=== PATIENT | female | born 1970 | race Caucasian/White ===

== ENCOUNTER 2021-05-25 08:02 | Outpatient (REF) | payer OTHER, SELFPAY ==
[2021-05-25 08:19] LABS: MANUAL DIFF FLAG NO
[2021-05-25 09:09] LABS: Basophils Percent Auto 0.1 % (0-2); Eosinophils Absolute Auto 0.4 X10*3/uL (0.0-0.4); Eosinophils Percent Auto 6.2 % (0-4); Hematocrit 40.3 % (37.0-47.0); Hemoglobin 12.7 g/dl (12.0-16.0); Imm Gran Abs Auto 0.04 X10*3/uL (0.00-0.03); Imm Gran Pct Auto 0.6 % (0.0-0.4); Lymphocytes Absolute Auto 3.1 X10*3/uL (1.2-4.9); Lymphocytes Percent Auto 46.6 % (20-40); Mean Corpuscular HGB Conc 31.5 g/dl (31.0-35.0); Mean Corpuscular Hemoglobin 27.2 pg (27.0-33.0); Mean Corpuscular Volume 86.3 fL (80.0-98.0); Monocytes Absolute Auto 0.7 X10*3/uL (0.1-1.2); Monocytes Percent Auto 10.1 % (2-11); Neutrophils Absolute Auto 2.5 x10*3/uL (2.0-8.3); Neutrophils Percent Auto 36.4 % (45-73); Platelet Count 410 X10*3/uL (160-400); Red Blood Count 4.67 X10*6/uL (4.20-5.50); Red Cell Distribution Width 13.1 % (11.0-16.0); White Blood Count 6.7 X10*3/uL (4.8-10.8)
[2021-05-25 09:46] LABS: Alanine Aminotransferase 19 U/L (0-31); Albumin Level 4.3 g/dL (3.5-5.0); Alkaline Phosphatase 88 U/L (39-117); Anion Gap 11 (12-20); Aspartate Amino Transferase 16 U/L (5-31); Bilirubin Total 0.4 mg/dL (0.0-1.0); Blood Urea Nitrogen 12 mg/dL (9-16); Calcium 9.6 mg/dL (8.4-10.2); Carbon Dioxide 29 mmol/L (22-29); Chloride 103 mmol/L (96-108); Cholesterol 235 mg/dL; Estimated Glomerular Filt Rate > 60; Glucose Fasting 97 mg/dL (60-99); HDL Cholesterol 61 mg/dL; LDL Cholesterol Calculated 152 mg/dl; Potassium 4.4 mmol/L (3.3-5.1); Sodium 139 mmol/L (135-145); Total Protein 7.4 g/dL (6.5-8.0); Triglycerides 111 mg/dL
[2021-05-25 10:08] LABS: Thyroid Stimulating Hormone 1.78 uIU/mL (0.32-4.0)
== END 2021-05-25 08:03 | disposition home or self-care (01) ==
LOC: HO.LAB 08:02
PROVIDERS: PCP Internal Medicine; Visit Provider Internal Medicine
DX: Z00.00 Encounter for general adult medical examination without abnormal findings (principal); E66.3 Overweight
CPT/HCPCS: 36415; 80053; 80061; 84443; 85025

== ENCOUNTER 2021-06-15 09:02 | Outpatient (REF) | payer OTHER, SELFPAY ==
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
== END 2021-06-15 09:03 | disposition home or self-care (01) ==
LOC: HO.MAMMO 09:02
PROVIDERS: PCP Internal Medicine; Visit Provider Internal Medicine
DX: Z12.31 Encounter for screening mammogram for malignant neoplasm of breast (principal)
CPT/HCPCS: 77063; 77067

== ENCOUNTER → 2021-08-24 09:52 | Outpatient (BNVA) | payer OTHER, SELFPAY | PROVIDERS: PCP Internal Medicine; Referring Provider Internal Medicine; Visit Provider Physician Assistant | DX: Z12.11 Encounter for screening for malignant neoplasm of colon (principal) ==

== ENCOUNTER 2021-11-08 09:13 | Outpatient (REF) | payer OTHER, SELFPAY ==
--- NOTE | ~2021-11-08 | XR_ITS ---
EXAMINATION: XR HIP, RIGHT XR HIP, LEFT CLINICAL INFORMATION: M16.0 - Bilateral primary osteoarthritis of hip COMPARISON: Radiographs right hip 06/26/2014 and left hip 08/05/2018. TECHNIQUE: Each hip is imaged in AP and frog-lateral projections. There are total of 4 views, 2 on each side. FINDINGS: Right: There is prominent osteoarthritic changes right hip with joint narrowing superolateral aspect. There are bulky acetabular osteophytes, greatest superior lateral acetabulum and also osteophytes at base femoral head. The acetabular osteophytes place patient at risk for pincer-type femoral acetabular impingement. The frog-lateral projections shows cleft at the acetabular spur similar to prior radiographs. There is no acute fracture or dislocation or destructive process. Spurring at the greater trochanter again seen. There is whiskering lateral iliac crest and ischial tuberosity. There may be underlying diffuse idiopathic skeletal hyperostosis. Left: There is prominent osteoarthritic changes left hip with joint narrowing superolateral aspect. There are bulky acetabular osteophytes, greatest superior lateral acetabulum and also osteophytes at base femoral head. The acetabular osteophytes with place patient at risk for pincer-type femoral acetabular impingement. There is no acute fracture or dislocation or destructive process. Spurring at the greater trochanter again seen. There is whiskering lateral iliac crest and ischial tuberosity. There may be underlying diffuse idiopathic skeletal hyperostosis. XR/XR hip LT min 2V IMPRESSION: -Bilateral osteoarthritis with bulky acetabular osteophytes and lesser osteophytes base femoral heads. The acetabular osteophytes can be associated with pincer-type femoral acetabular impingement. -Bilateral spurring lateral iliac crests, ischial tuberosities, and greater trochanters. There may be underlying diffuse idiopathic skeletal hyperostosis.
--- NOTE | ~2021-11-08 | XR_ITS ---
EXAMINATION: XR HIP, RIGHT XR HIP, LEFT CLINICAL INFORMATION: M16.0 - Bilateral primary osteoarthritis of hip COMPARISON: Radiographs right hip 06/26/2014 and left hip 08/05/2018. TECHNIQUE: Each hip is imaged in AP and frog-lateral projections. There are total of 4 views, 2 on each side. FINDINGS: Right: There is prominent osteoarthritic changes right hip with joint narrowing superolateral aspect. There are bulky acetabular osteophytes, greatest superior lateral acetabulum and also osteophytes at base femoral head. The acetabular osteophytes place patient at risk for pincer-type femoral acetabular impingement. The frog-lateral projections shows cleft at the acetabular spur similar to prior radiographs. There is no acute fracture or dislocation or destructive process. Spurring at the greater trochanter again seen. There is whiskering lateral iliac crest and ischial tuberosity. There may be underlying diffuse idiopathic skeletal hyperostosis. Left: There is prominent osteoarthritic changes left hip with joint narrowing superolateral aspect. There are bulky acetabular osteophytes, greatest superior lateral acetabulum and also osteophytes at base femoral head. The acetabular osteophytes with place patient at risk for pincer-type femoral acetabular impingement. There is no acute fracture or dislocation or destructive process. Spurring at the greater trochanter again seen. There is whiskering lateral iliac crest and ischial tuberosity. There may be underlying diffuse idiopathic skeletal hyperostosis. XR/XR hip RT min 2V IMPRESSION: -Bilateral osteoarthritis with bulky acetabular osteophytes and lesser osteophytes base femoral heads. The acetabular osteophytes can be associated with pincer-type femoral acetabular impingement. -Bilateral spurring lateral iliac crests, ischial tuberosities, and greater trochanters. There may be underlying diffuse idiopathic skeletal hyperostosis.
[2021-11-08 09:29] LABS: MANUAL DIFF FLAG NO
[2021-11-08 09:59] LABS: Basophils Percent Auto 0.3 % (0-2); Eosinophils Absolute Auto 0.3 X10*3/uL (0.0-0.4); Eosinophils Percent Auto 5.1 % (0-4); Hematocrit 37.1 % (37.0-47.0); Hemoglobin 11.9 g/dl (12.0-16.0); Imm Gran Abs Auto 0.02 X10*3/uL (0.00-0.03); Imm Gran Pct Auto 0.3 % (0.0-0.4); Lymphocytes Absolute Auto 2.6 X10*3/uL (1.2-4.9); Lymphocytes Percent Auto 43.9 % (20-40); Mean Corpuscular HGB Conc 32.1 g/dl (31.0-35.0); Mean Corpuscular Hemoglobin 27.4 pg (27.0-33.0); Mean Corpuscular Volume 85.5 fL (80.0-98.0); Mean Platelet Volume 9.1 fL (9.4-12.3); Monocytes Absolute Auto 0.7 X10*3/uL (0.1-1.2); Monocytes Percent Auto 12.3 % (2-11); Neutrophils Absolute Auto 2.2 x10*3/uL (2.0-8.3); Neutrophils Percent Auto 38.1 % (45-73); Platelet Count 389 X10*3/uL (160-400); Red Blood Count 4.34 X10*6/uL (4.20-5.50); White Blood Count 5.9 X10*3/uL (4.8-10.8)
[2021-11-08 10:36] LABS: C Reactive Protein 0.28 mg/dL (< or = 0.50)
[2021-11-08 11:02] LABS: Thyroid Stimulating Hormone 2.09 uIU/mL (0.32-4.0)
[2021-11-08 11:20] LABS: Erythrocyte Sedimentation Rate 12 MM/HR (0-20)
== END 2021-11-08 09:14 | disposition home or self-care (01) ==
LOC: HO.XRAY 09:13
PROVIDERS: PCP Internal Medicine; Visit Provider Internal Medicine Rheumatology
DX: M16.0 Bilateral primary osteoarthritis of hip (principal)
CPT/HCPCS: 36415; 73502; 84443; 85025; 85652; 86140

== ENCOUNTER 2021-11-10 09:54 | Outpatient (REF) | payer OTHER, SELFPAY ==
--- NOTE | ~2021-11-10 | US_ITS ---
EXAMINATION: US THYROID CLINICAL INFORMATION: Nontoxic goiter, unspecified. COMPARISON: None TECHNIQUE: Linear transducer grayscale and color Doppler examination with attention to the region of the thyroid. FINDINGS: SIZE: Measurements of the thyroid lobes and nodules are given in sagittal, anteroposterior and transverse dimensions respectively. Right Thyroid Lobe: 4.4 x 1.4 x 1.9 cm, volume 6.1 mL. Parenchyma: The gland echotexture is homogeneous. Thyroid vascularity is normal. Left Thyroid Lobe: 3.6 x 1.1 x 1.4 cm, volume 2.9 mL. Parenchyma: The gland echotexture is homogeneous. Thyroid vascularity is normal. Isthmus: 0.2 cm in maximum AP dimension. Estimated total number of nodules greater than or equal to 1 cm: 0. School Bus Monitor nodules are described as follows: 1. Location: Right lateral/lower pole. Size: 0.3 x 0.2 x 0.3 cm, volume 0.01 mL. Nodule characteristics: Composition: Solid (2). Echogenicity: Isoechoic (1). Shape: Not taller than wide (0). Margins: Smooth (0). Echogenic Foci: None (0). ACR TI-RADS total points: 3 ACR TI-RADS category: 3 2. Location: Right lower pole. Size: 0.2 x 0.1 x 0.2 cm, volume 0.02 mL. Nodule characteristics: Composition: Solid/almost completely solid (2). Echogenicity: Hypoechoic (2). Shape: Not taller than wide (0). Margins: Smooth (0). Echogenic Foci: None (0). ACR TI-RADS total points: 4 ACR TI-RADS category: 4 NODES: No lymphadenopathy is seen in the tissue surrounding the thyroid gland. US/US thyroid IMPRESSION: 1. Nodule in the lower portion of the right thyroid lobe (nodule #1) measures up to 0.3 cm with a TI-RADS Category 3. Nodule does not require follow-up. 2. Nodule in the lower portion of the right thyroid lobe (nodule #2) measures up to 0.2 cm with a TI-RADS Category 4. Nodule does not require follow-up. 3. Bilateral thyroid lobes demonstrate a homogeneous echotexture with normal vascularity. 4. No lymphadenopathy noted. ACR TI-RADS RECOMMENDATION REFERENCE: Ultrasound-guided fine-needle aspiration, followup ultrasound, no further follow up. * TR3 (3 points): FNA if more than or equal to 2.5 cm in maximum dimension, followup ultrasound in 1, 3 and 5 years if 1.5 to 2.4 cm in maximum dimension. * TR4 (4-6 points): FNA if more than or equal to 1.5 cm in maximum dimension, followup ultrasound in 1, 2, 3 and 5 years if 1 to 1.4 cm in maximum dimension. * TR3 or TR4 nodules that are below the size threshold for follow up receive no follow up.
== END 2021-11-10 09:55 | disposition home or self-care (01) ==
LOC: HO.US 09:54
PROVIDERS: Visit Provider Internal Medicine
DX: E04.9 Nontoxic goiter, unspecified (principal)
CPT/HCPCS: 76536

== ENCOUNTER 2021-12-02 15:52 | Outpatient (REF) | payer OTHER, SELFPAY ==
--- NOTE | ~2021-12-02 | MR_ITS ---
EXAMINATION: MR CERVICAL SPINE WITHOUT AND WITH CONTRAST CLINICAL INFORMATION: Syringomyelia and syringobulbia. COMPARISON: No relevant prior imaging. TECHNIQUE: Multiplanar MR imaging of the cervical spine was performed without and with contrast. A total of 7.5 mL Gadavist was utilized for this examination. FINDINGS: Alignment is normal. Vertebral body heights are preserved. No acute bone marrow signal changes. There is disc desiccation at multiple levels without substantial loss of intervertebral disc height. There is a syrinx involving the lower cervical spinal cord that extends from C6 to T1 measuring up to 3 mm in diameter at the level of the lower T7 endplate best depicted on axial image 27 of 40 series 6. The cervicomedullary junction is normal. Limited visualization the posterior fossa reveals no abnormal finding. The occipital condyles and lateral C1 masses are intact. There is degenerative arthrosis of the atlantodental joint. C1-C2 articular facets are unremarkable. At C2-C3 the annular contour is normal. No canal or neuroforaminal compromise. At C3-C4 there is a contour abnormality along the left central aspect of the disc that may either represent a disc extrusion, exuberant disc osteophyte complex, or an osteochondroma causing abutment along the left ventral surface of the cervical cord. Otherwise no canal stenosis. Asymmetric uncovertebral joint spurring and facet degenerative change causes moderate left neuroforaminal encroachment. At C4-C5 there is a slightly bulging disc. No canal stenosis. Uncovertebral joint spurring causes mild left neuroforaminal encroachment. At C5-C6 there is a slightly bulging disc. No canal stenosis. Asymmetric uncovertebral joint spurring causes mild right neuroforaminal encroachment. At C6-C7 there is a shallow right central protrusion superimposed on a bulging disc. No canal stenosis. Uncovertebral spurring and facet degenerative change causes mild bilateral neuroforaminal encroachment. At C7-T1 the annular contour is normal. No canal stenosis. No neuroforaminal encroachment. Visualized soft tissues of the neck are normal. Vascular flow voids are grossly maintained. MR/MR cervical spine wo/w con IMPRESSION: There is a small fusiform syrinx involving the cervical spinal cord that extends from the level of C6-T1 measuring up to 3 mm in maximal diameter at the level of the lower C5 endplate. There is a focal abnormality along the left central aspect of the disc contour at the level of C3-C4 causing indentation of the thecal sac and abutment along the left ventral surface of the cervical cord. No canal stenosis and no overt compression at this level. The etiology of this finding is uncertain. It may represent a disc herniation, disc osteophyte complex, or an osteochondroma. Comparison with prior imaging is recommended if available. A CT scan can also be helpful to assess the extent of calcification of this lesion.
== END 2021-12-02 15:53 | disposition home or self-care (01) ==
LOC: HO.MRI 15:52
PROVIDERS: Visit Provider Internal Medicine Rheumatology
DX: G95.0 Syringomyelia and syringobulbia (principal)
CPT/HCPCS: 72156; A9585

== ENCOUNTER 2021-12-21 06:30 | Day surgery (SDC) | payer OTHER, SELFPAY ==
[2021-12-15 14:34] VITALS: BMI 29.9
[2021-12-21 07:40] VITALS: BMI 28.0
[2021-12-21 07:45] VITALS: BP 177/92; PULSE 70; RESP 16; TEMP 36.9; O2SAT 100
--- NOTE | 2021-12-21 08:03 | P.CONAN_ITS ---
HPI - Anesthesia Eval Consult details Narrative: Screening Colonoscopy [facility] Active Problems Active Problems: All Active Problems (Updated 11/30/21 @ 10:00 by Mikael Jiménez MD) Osteoarthritis cervical spine (Acute) Syrinx of spinal cord (Acute) Goiter (Acute) Polyarthralgia (Acute) Pure hypercholesterolemia (Acute) Fibromyalgia (Acute) Osteoarthritis, hip, bilateral (Acute) Overweight (Acute) Past Medical History Medical History Fibromyalgia Goiter Hip pain, bilateral Neck pain Osteoarthritis, hip, bilateral Overweight Physical exam Polyarthralgia Pure hypercholesterolemia Family History Family history of problems with anesthesia: No Surgical History Surgical History H/O skin graft History of esophagogastroduodenoscopy (EGD) Osteochondroma of femur S/P TAMERA (total abdominal hysterectomy) History of Problems with Anesthesia: No Social History Social History Housing: Apartment Alcohol intake: never Patient Tobacco Use Status: Never used Tobacco e-Cigarette/Vaping Use: Never Used Second Hand Smoke Exposure: No Use of substances other than those prescribed or required for medical reasons: No Are you DNR?: No Advance Directives: No Advance Directives Information Provided: Yes service: No Current occupational status: unemployed Cognitive needs: No Hearing needs: No Vision needs: No Meds Allergies Allergy/AdvReac Type Severity Reaction Status Date / Time oxycodone [Percocet] Allergy Intermediate rash Verified 12/15/21 14:30 sulindac Allergy Intermediate Abdominal Verified 12/15/21 14:30 Pain tramadol Allergy Intermediate Abdominal Verified 12/15/21 14:30 Pain diazepam [From VALIUM] Allergy Mild HIVES Verified 11/30/21 09:17 fluoxetine [From PROZAC] Allergy Mild HIVES Verified 11/30/21 09:17 Active Medications: Current Medications Lactated Ringer's (Lr) 1,000 mls @ 50 mls/hr IVCONT .Q20H [facility] Home Medications Medication Instructions Recorded Confirmed Last Taken Type acetaminophen 500 mg tablet 1,000 mg PO Q6H PRN 11/30/21 11/30/21 Unknown History (Tylenol Extra Strength) Exam Exam Date and Time: December 21, 2021 0803 Height,Weight and Vital Signs: Height 5 ft 2 in Weight 69.4 kg Last Vital Signs Temp 98.5 F 12/21/21 07:45 Pulse 70 12/21/21 07:45 Resp 16 12/21/21 07:45 BP 177/92 H 12/21/21 07:45 Pulse Ox 100 12/21/21 07:45 O2 Del Method 12/21/21 07:45 Airway Mallampati Class: II TM Dist: >3cm Neck ROM: Full Loose/Missing/Broken Teeth: Yes (alot of crowns globally, poor dentititon) Heart: [id number] Lungs: cta b/l Assessment and Plan Assessment Anesthesia Assessment: Anesthesia Plan Discussed and Chart Reviewed Final Anesthetic Review Family History of Problems with Anesthesia: No History of Problems with Anesthesia: No NPO: Yes ASA Class: II Final Preanesthetic Review: No Changes in Pt Med Stat, Meds/Allgs Chart Reviewed, Consent Obtained/Reviewed and Anes Risks/Benef Reviewed Patient Risk: Intermediate Procedure Risk: Low Assessment/Block/Sedation in SS: Assess/Block/Sedation-SS Anesthetic Plan Anesthetic Plan: MAC: and Agree w/ Assess. and Plan Disposition: Standard PACU
[2021-12-21] MEDS: Lactated Ringers 1,000 ML 50 ML IVCONT (08:12)
--- NOTE | 2021-12-21 08:46 | MHC.SHP ---
Pre-Procedural Eval Section A Date of Service: 12/21/21 Section B Chief Complaint: screening Relevant Family History (Specify if Yes): No Relevant Social History: None Present Medications: see Short Stay Collaborative assessment Medical History: Significant History (Fibromyalgia Goiter Hip pain, bilateral Neck pain Osteoarthritis, hip, bilateral Overweight Physical exam Polyarthralgia Pure hypercholesterolemia) History of Previous Operations: Relevant previous surgery/procedure and date(s) (H/O skin graft History of esophagogastroduodenoscopy (EGD) Osteochondroma of femur S/P TAMERA (total abdominal hysterectomy)) Allergies: Allergies Allergy/AdvReac Type Severity Reaction Status Date / Time oxycodone [Percocet] Allergy Intermediate rash Verified 12/15/21 14:30 sulindac Allergy Intermediate Abdominal Verified 12/15/21 14:30 Pain tramadol Allergy Intermediate Abdominal Verified 12/15/21 14:30 Pain diazepam [From VALIUM] Allergy Mild HIVES Verified 11/30/21 09:17 fluoxetine [From PROZAC] Allergy Mild HIVES Verified 11/30/21 09:17 Review of Systems Sugical H&P ROS: Negative: Constitution, Cardiovascular, Respiratory, Neurological, Psychiatric, Hem-Onc, Allergic/Immunologic, Gastrointestinal, Genitourinary, Musculoskeletal, Integumentary, Endocrine and Eyes/Ears/Nose/Throat Exam Surgical H&P Exam: Normal: HEENT, Normal: Heart, Normal: Lungs, Normal: Extremities, Normal: Abdomen, Normal: Skin and Normal: Neurological Plan Diagnosis/Plan: Unchanged I have reviewed the history and physical and performed a pertinent physical examination on my patient. No changes have occurred unless specified.
--- NOTE | 2021-12-21 08:48 | W.PM.OPN ---
Operative Note Operative Note Date of Service: 12/21/21 Narrative: Operative Information Procedure Description: Colonoscopy Indication: screening Anesthesia: MAC COLONOSCOPY Instrument: Olympus variable stiffness pediatric scope 190L Colonoscopy Monitoring: Vital signs and clinical assessment, continuous EKG monitoring, Pulse oximetry, Carbon Dioxide monitoring and blood pressure monitoring were done throughout the procedure. Colon withdrawal time was 7 minutes. Procedure: The patient was placed in the left lateral decubitis position and pre-procedure medications were administered. After a digital rectal examination of the ano-rectum, the video colonoscope was inserted into the rectum and advanced through the colon to the cecum/TI. The colonoscope was slowly withdrawn in a retrograde panoramic fashion and the colon mucosa was carefully examined including a retroflexed view of the rectum. Findings and interventions are described below. Procedure Difficulty: easy Findings: Terminal Ileum-normal Cecum: few diverticula seen right sided retroflexion--normal Ascending Colon: scattered diverticula Transverse Colon -normal Descending Colon:normal Sigmoid Colon: moderate diverticulosis with luminal narrowing and mucosal hypertrophy Rectum: Retroflexion with small internal hemorrhoids, grade I Anorectum - normal Colon preparation: [place] Bowel Preparation Scale Right colon; 2 Transverse colon: 3 Left colon; 3 (0 = Unprepared colon segment with mucosa not seen due to solid stool that cannot be cleared. 1 = Portion of mucosa of the colon segment seen, but other areas of the colon segment not well seen due to staining, residual stool and/or opaque liquid. 2 = Minor amount of residual staining, small fragments of stool and/or opaque liquid, but mucosa of colon segment seen well. 3 = Entire mucosa of colon segment seen well with no residual staining, small fragments of stool or opaque liquid) Impression and Post Procedure Diagnosis: internal hemorrhoids diverticular disease Plan: High fiber diet leaflet Avoid straining at stool, epsom salts and sitz bath, anusol supps or cream Repeat Colonoscopy in 10 years or earlier if clinically indicated Above findings were reviewed with the patient and relevant handouts were provided if indicated.
[2021-12-21 09:07] VITALS: BP 138/86; PULSE 64; RESP 16; TEMP 36.1; O2SAT 100
[2021-12-21 09:22] VITALS: BP 145/82; PULSE 64; RESP 16; TEMP 36.2; O2SAT 99
[2021-12-21 09:33] VITALS: BP 142/87; PULSE 58; RESP 16; TEMP 36.2; O2SAT 99
== END 2021-12-21 10:05 | disposition home or self-care (01) ==
PROVIDERS: PCP Internal Medicine; Visit Provider Internal Medicine Gastroenterology
PROC: 0DJD8ZZ Inspection of Lower Intestinal Tract, Via Natural or Artificial Opening Endoscopic (ICD-10-PCS; CPT 45378; principal; 2021-12-21 08:30)
DX: Z12.11 Encounter for screening for malignant neoplasm of colon (principal); K57.30 Diverticulosis of large intestine without perforation or abscess without bleeding; K64.0 First degree hemorrhoids; M79.7 Fibromyalgia; E78.00 Pure hypercholesterolemia, unspecified; E66.3 Overweight; Z68.29 Body mass index [BMI] 29.0-29.9, adult; J30.2 Other seasonal allergic rhinitis; Z88.8 Allergy status to other drugs, medicaments and biological substances
CPT/HCPCS: 45378

== ENCOUNTER 2022-05-15 08:20 | Outpatient (REF) | payer OTHER, SELFPAY ==
[2022-05-15 09:21] LABS: Influenza A PCR NEGATIVE (Negative); Influenza B PCR NEGATIVE (Negative); Resp Syncy Virus RNA Qual PCR NEGATIVE (Negative); SARS COV2 PCR INHOUSE NEGATIVE (Negative)
[2022-05-15 10:04] LABS: Alanine Aminotransferase 21 U/L (0-31); Albumin Level 4.2 g/dL (3.5-5.0); Alkaline Phosphatase 95 U/L (39-117); Anion Gap 15 (12-20); Aspartate Amino Transferase 16 U/L (5-31); Bilirubin Total 0.4 mg/dL (0.0-1.0); Blood Urea Nitrogen 10 mg/dL (9-16); Calcium 9.4 mg/dL (8.4-10.2); Carbon Dioxide 27 mmol/L (22-29); Chloride 103 mmol/L (96-108); Cholesterol 185 mg/dL; Estimated Glomerular Filt Rate > 60; Glucose Fasting 100 mg/dL (60-99); HDL Cholesterol 49 mg/dL; LDL Cholesterol Calculated 103 mg/dl; Potassium 4.2 mmol/L (3.3-5.1); Sodium 141 mmol/L (135-145); Triglycerides 168 mg/dL
[2022-05-15 10:12] LABS: Vitamin D 25-OH Total 22.3 ng/mL (>30)
== END 2022-05-15 08:21 | disposition home or self-care (01) ==
LOC: HO.LAB 08:20
PROVIDERS: PCP Internal Medicine; Visit Provider Internal Medicine
DX: Z00.00 Encounter for general adult medical examination without abnormal findings (principal); Z20.822 Contact with and (suspected) exposure to COVID-19; R09.89 Other specified symptoms and signs involving the circulatory and respiratory systems; E55.9 Vitamin D deficiency, unspecified; E78.5 Hyperlipidemia, unspecified
CPT/HCPCS: 0241U; 80053; 80061; 82306

== ENCOUNTER 2022-08-02 07:57 | Outpatient (REF) | payer OTHER, SELFPAY ==
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
== END 2022-08-02 07:58 | disposition home or self-care (01) ==
LOC: HO.MAMMO 07:57
PROVIDERS: Visit Provider Internal Medicine
DX: Z12.31 Encounter for screening mammogram for malignant neoplasm of breast (principal)
CPT/HCPCS: 77063; 77067

== ENCOUNTER 2022-09-21 09:23 | Outpatient (REF) | payer MEDICAID, SELFPAY ==
--- NOTE | ~2022-09-21 | US_ITS ---
EXAMINATION: US VENOUS ULTRASOUND WITH DOPPLER LOWER EXTREMITY, LEFT CLINICAL INFORMATION: Left lower extremity pain COMPARISON: None available. TECHNIQUE: Ultrasound of the deep veins is performed from the hip to the calf with compression sonography and color and pulse Doppler assessment. Spectral analysis with color-flow imaging is performed. FINDINGS: There is normal venous compression and respiratory variation and augmented flow. The visualized common femoral vein, superficial femoral vein, profunda femoral vein, popliteal vein, and the trifurcation region shows no evidence of deep venous thrombosis. There is no significant popliteal fossa cyst. If the patient's symptoms persist, followup ultrasound in 5 days 7 days might be of value to exclude proximal propagation from a non-visualized calf vein. US/US venous duplex LE LT IMPRESSION: No DVT demonstrated in the left lower extremity.
== END 2022-09-21 09:24 | disposition home or self-care (01) ==
LOC: HO.US 09:23
PROVIDERS: PCP Internal Medicine; Visit Provider Internal Medicine
DX: M79.605 Pain in left leg (principal)
CPT/HCPCS: 93971

== ENCOUNTER 2022-09-22 11:15 | Outpatient (REF) | payer MEDICAID, SELFPAY ==
[2022-09-22 13:28] LABS: Magnesium 2.4 mg/dL (1.6-2.6)
== END 2022-09-22 11:16 | disposition home or self-care (01) ==
LOC: HO.LAB 11:15
PROVIDERS: PCP Internal Medicine; Visit Provider Internal Medicine
DX: R25.2 Cramp and spasm (principal)
CPT/HCPCS: 36415; 83735

== ENCOUNTER 2022-10-25 09:10 | Outpatient (AMB) | payer OTHER, SELFPAY ==
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
== END 2022-10-25 11:56 | disposition home or self-care (01) ==
PROVIDERS: PCP Internal Medicine; Referring Provider Internal Medicine; Visit Provider Physician Assistant
DX: G95.9 Disease of spinal cord, unspecified (principal)
CPT/HCPCS: 99204

== ENCOUNTER → 2022-10-25 09:10 | Outpatient (BNVA) | payer OTHER, SELFPAY | PROVIDERS: PCP Internal Medicine; Visit Provider Neurological Surgery | DX: G95.9 Disease of spinal cord, unspecified (principal) | CPT/HCPCS: 99202 ==

== ENCOUNTER 2022-10-31 10:25 | Outpatient (REF) | payer OTHER, SELFPAY ==
--- NOTE | ~2022-10-31 | US_ITS ---
EXAMINATION: US THYROID CLINICAL INFORMATION: Nontoxic single thyroid nodule. COMPARISON: Ultrasound thyroid 11/10/2021. TECHNIQUE: Linear transducer grayscale and color Doppler examination with attention to the region of the thyroid. FINDINGS: SIZE: Measurements of the thyroid lobes and nodules are given in sagittal, anteroposterior and transverse dimensions respectively. Right Thyroid Lobe: 4.0 x 1.4 x 1.7 cm, volume 5.0 mL. Previously 4.4 x 1.4 x 1.9 cm, volume 6.1 mL. Parenchyma: The gland echotexture is homogeneous. Thyroid vascularity is normal. Left Thyroid Lobe: 3.6 x 1.2 x 1.4 cm, volume 3.2 mL. Previously 3.6 x 1.1 x 1.4 cm, volume 2.9 mL. Parenchyma: The gland echotexture is homogeneous. Thyroid vascularity is normal. Isthmus: 0.2 cm in maximum AP dimension. Previously 0.2 cm. Estimated total number of nodules greater than or equal to 1 cm: 0. Rotating Equipment Engineer nodules are described as follows: 1. Location: Right mid/inferior. Size: 0.4 x 0.2 x 0.3 cm, volume 0.01 mL. Previously: 0.3 x 0.2 x 0.3 cm, volume 0.01 mL. Nodule characteristics: Composition: Solid (2). Echogenicity: Hypoechoic (2). Shape: Not taller than wide (0). Margins: Smooth (0). Echogenic Foci: None (0). ACR TI-RADS total points: 4 Previous: 3 ACR TI-RADS category: 4 Previous: 3 Significant change in size (>/= 20% in 2 dimensions and minimal increase of 2 mm or 50% or greater increase in volume): No Change in features: No Change in ACR TI-RADS risk category: Yes 2. A previously described 0.2 cm right lower pole. 4 nodule on ultrasound from 11/10/2021 is not seen in this examination. NODES: No lymphadenopathy is seen in the tissue surrounding the thyroid gland. US/US thyroid IMPRESSION: 1. Stable 0.4 cm nodule in the mid to lower pole of the right lobe classified as TR 4, not meeting size criteria for further evaluation. 2. No new nodules. ACR TI-RADS RECOMMENDATION REFERENCE: Ultrasound-guided fine-needle aspiration, follow up ultrasound, no further followup. * TR1 (0 point) and TR2 (2 points): No FNA or followup * TR3 (3 points): FNA if more than or equal to 2.5 cm in maximum dimension, follow up ultrasound in 1, 3 and 5 years if 1.5 to 2.4 cm in maximum dimension. * TR4 (4-6 points): FNA if more than or equal to 1.5 cm in maximum dimension, follow up ultrasound in 1, 2, 3 and 5 years if 1 to 1.4 cm in maximum dimension. * TR5 (more than or equal to 7 points): FNA if more than or equal to 1 cm in maximum dimension, follow up ultrasound every year for 5 years if 0.5 to 0.9 cm in maximum dimension. * TR3, TR4 or TR5 nodules that are below the size threshold for follow up receive no followup.
== END 2022-10-31 10:26 | disposition home or self-care (01) ==
LOC: HO.US 10:25
PROVIDERS: PCP Internal Medicine; Visit Provider Internal Medicine
DX: E04.1 Nontoxic single thyroid nodule (principal)
CPT/HCPCS: 76536

== ENCOUNTER 2022-11-14 07:26 | Outpatient (REF) | payer OTHER, SELFPAY ==
--- NOTE | ~2022-11-14 | CT_ITS ---
EXAMINATION: CT CERVICAL SPINE WITHOUT CONTRAST CLINICAL INFORMATION: Disease of the cervical spinal cord. Cervical myelopathy. COMPARISON: MR cervical spine 12/02/2021. TECHNIQUE: Grocery Clerk images were obtained. CT imaging of the cervical spine was performed without contrast. Data was reformatted into multiplanar images at the acquisition workstation. This CT examination was performed using dose optimization techniques as appropriate, including one or more of the following: Automated exposure control, iterative reconstruction, and adjustment of technique factors (mA and/or kVp) according to patient size (this includes techniques or standardized protocols for targeted exams where dose is matched to indication/reason for exam). Fleischner Society criteria for the followup of incidental pulmonary nodules was implemented if appropriate. DLP: 341 mGy-cm FINDINGS: Alignment is normal. Vertebral body heights are preserved. No acute cervical spine fracture. No abnormal prevertebral soft tissue swelling. There is loss of intervertebral disc height with associated sclerotic degenerative endplate changes and hypertrophic disc osteophyte spurring at multiple levels. There is relatively exuberant disc osteophyte spurring at the level of C3-C4 best visualized on sagittal image 25 of 47 series 8 with hypertrophic spurring that bulges into the left ventrolateral aspect of the cervical spinal canal resulting in moderate to severe left neuroforaminal encroachment and no more than mild canal stenosis at this level. Otherwise no canal compromise within the cervical spine. There is degenerative arthrosis of the atlantodental joint. The cervicomedullary junction is normal. Limited visualization of intracranial anatomy reveals no abnormal finding. Visualized soft tissues of the neck are normal. Grossly no pathologically enlarged cervical lymph nodes. CT/CT cervical spine wo IV con IMPRESSION: There is multilevel degenerative spondylosis of the cervical spine. There is relatively exuberant disc osteophyte spurring at C3-C4 that bulges into the left ventrolateral aspect of the cervical spinal canal resulting in moderate to severe left neuroforaminal encroachment and no more than mild canal stenosis at this level. Otherwise no canal compromise within the cervical spine.
== END 2022-11-14 07:27 | disposition home or self-care (01) ==
LOC: HO.CT 07:26
PROVIDERS: PCP Internal Medicine; Visit Provider Neurological Surgery
DX: G95.9 Disease of spinal cord, unspecified (principal)
CPT/HCPCS: 72125

== ENCOUNTER 2022-11-29 12:58 | Outpatient (AMB) | payer OTHER, SELFPAY ==
--- NOTE | 2022-11-29 13:16 | HO.SPINEOV ---
Intake Intake Visit Reasons: CT f/up Intake Note: Ms. New is here today for a f/u of a CT Scan she had done. Interactive Project Manager Required: No Allergies oxycodone [Percocet] Allergy (Intermediate, Verified 10/25/22 09:57) rash sulindac Allergy (Intermediate, Verified 10/25/22 09:57) Abdominal Pain tramadol Allergy (Intermediate, Verified 10/25/22 09:57) Abdominal Pain diazepam [From VALIUM] Allergy (Mild, Verified 10/25/22 09:57) HIVES fluoxetine [From PROZAC] Allergy (Mild, Verified 10/25/22 09:57) HIVES Assessment & Plan Assessment & Plan (1) Cervical myelopathy: Code(s): G95.9 - Disease of spinal cord, unspecified Plan The patient is a 52-year-old female that comes in as a follow-up after completing her cervical CT scan. She last saw Dr. Gonzales who recommended that she have a CT scan completed after noticing a disc bulge at C3-4 to rule out a potential osteophyte as inciting incident was reported to be old. Reduce the rather large osteophyte on the posterior edge of the vertebral body. Initially we discussed the possibility of a C4 corpectomy with cage placement to address the myelopathic symptoms that the patient is experiencing which originate from her left shoulder and radiate down her left arm to the hand. After further discussion with the patient, and repeat physical exam it was noted that the patient has symptoms in the left arm that are more consistent with carpal tunnel. She does not have any isolation of symptoms in a dermatomal distribution, but rather has grossly numbness/tingling/burning in her left arm predominantly found in her left hand, with involvement of all of her phalanges (H). (+) Tinel's, (+) Phalen's. Reflexes 2+ intact, no myelopathic reflexes. We discussed the possibility of carpal tunnel syndrome, which that the patient disclosed that she had an EMG completed at [facility] in [place]. After discussion the patient case with Dr. Gonzales it was decided that we should request the records of her EMG from findings findings for and see her back in the office to discuss the possibility of a carpal tunnel release procedure on the left side. If we are able to confirm that she has carpal tunnel, and she has continued symptoms after we complete procedure to release her median nerve, we may revisit the idea of a C4 corpectomy. The patient understands and is agreeable to this plan. Total amount of time spent in this visit was 45 minutes in discussion of symptoms, CT imaging results, medical records requests, and subsequent plan of care Andi Gonzales MD,PhD [facility] Coding Level of Care Code Est Pt Level 5 (27677) Diagnoses Cervical myelopathy G95.9
== END 2022-11-29 14:58 | disposition home or self-care (01) ==
PROVIDERS: PCP Internal Medicine; Visit Provider Physician Assistant
DX: G95.9 Disease of spinal cord, unspecified (principal)
CPT/HCPCS: 99215

== ENCOUNTER → 2022-11-29 12:58 | Outpatient (BNVA) | payer OTHER, SELFPAY | PROVIDERS: PCP Internal Medicine; Visit Provider Physician Assistant | DX: G95.9 Disease of spinal cord, unspecified (principal) | CPT/HCPCS: 99212 ==

== ENCOUNTER 2022-12-27 15:21 | Outpatient (AMB) | payer OTHER, SELFPAY ==
--- NOTE | 2022-12-27 15:25 | HO.SPINEOV ---
Intake Intake Visit Reasons: Follow EMG results Intake Note: Ms. New is here today for discuss the results of her EMG. Medical Information Officer Required: Yes Allergies oxycodone [Percocet] Allergy (Intermediate, Verified 10/25/22 09:57) rash sulindac Allergy (Intermediate, Verified 10/25/22 09:57) Abdominal Pain tramadol Allergy (Intermediate, Verified 10/25/22 09:57) Abdominal Pain diazepam [From VALIUM] Allergy (Mild, Verified 10/25/22 09:57) HIVES fluoxetine [From PROZAC] Allergy (Mild, Verified 10/25/22 09:57) HIVES Assessment & Plan Assessment & Plan (1) Carpal tunnel syndrome of right wrist: Code(s): G56.01 - Carpal tunnel syndrome, right upper limb Plan Reema is a 52-year-old female who comes in for her 2nd follow-up visit for continued discussion of surgery. We were able to obtain her EMG results and discuss the need for bilateral carpal tunnel release surgery. She specifically wanted to be seen on a day that Dr. Gonzales would be years that she could meet the surgeon that would be performing her surgery. We spent roughly an hour answering all the questions that she had pertaining to her cervical spine CT and MRI imaging, alongside questions she had from her EMG. She was scheduled to have a right carpal tunnel release surgery on 02/06/2023. She will need to be scheduled for left carpal tunnel release surgery shortly thereafter. She understands and is agreeable to this plan. Reema was given risk and benefits of surgery including but not limited to infection, hematoma , nerve injury, weakness, and persistent pain. As well as the option to continue with conservative treatment and patient wishes to proceed with surgery. She is aware they should not take Motrin / aspirin 7 days prior to surgery. All questions were answered to the best of our ability. If there is anything about this patients medical history that we have overlooked or concerns you have about us proceeding with surgery we would appreciate any input you can offer. Total amount of time spent in this visit was 60 minutes in discussion of symptoms, answering surgical questions, MRI / CT / EMG imaging results review with patient, ansd subsequent plan of care Andi Gonzales MD,PhD [facility] Coding Level of Care Code Est Pt Level 5 (11818) Diagnoses Carpal tunnel syndrome of right wrist G56.01
== END 2023-01-02 09:41 | disposition home or self-care (01) ==
PROVIDERS: PCP Internal Medicine; Visit Provider Physician Assistant
DX: G56.01 Carpal tunnel syndrome, right upper limb (principal)
CPT/HCPCS: 99215

== ENCOUNTER → 2022-12-27 15:21 | Outpatient (BNVA) | payer OTHER, SELFPAY | PROVIDERS: PCP Internal Medicine; Visit Provider Physician Assistant | DX: G56.01 Carpal tunnel syndrome, right upper limb (principal) | CPT/HCPCS: 99212 ==

== ENCOUNTER 2023-02-06 08:44 | Day surgery (SDC) | payer OTHER, SELFPAY ==
--- NOTE | 2023-02-05 09:13 | P.CONAN_ITS ---
Documented by User: Raiza Murdock NP 02/05/23 09:13 HPI - Anesthesia Eval Consult details Narrative: 52yo F for Right Carpal Tunnel Release PMFSH Active Problems Active Problems: All Active Problems (Updated 12/27/22 @ 16:22 by NATALIIA Baez) Carpal tunnel syndrome of right wrist (Acute) Cervical myelopathy (Acute) Muscle cramp (Acute) Left leg pain (Acute) Thyroid nodule (Acute) Physical exam (Acute) Diverticulosis of colon (Acute) Hemorrhoids (Acute) Osteoarthritis cervical spine (Acute) Syrinx of spinal cord (Acute) Goiter (Acute) Polyarthralgia (Acute) Pure hypercholesterolemia (Acute) Fibromyalgia (Acute) Osteoarthritis, hip, bilateral (Acute) Overweight (Acute) Past Medical History Medical History (Updated 12/27/22 @ 16:22 by NATALIIA Baez) Cervical myelopathy Goiter Polyarthralgia Pure hypercholesterolemia Fibromyalgia Osteoarthritis, hip, bilateral Physical exam Overweight Neck pain Hip pain, bilateral Family History Family History Father Stroke Mother Diabetes mellitus Family history of problems with anesthesia: No Surgical History Surgical History Hx of colonoscopy History of esophagogastroduodenoscopy (EGD) H/O skin graft S/P TAMERA (total abdominal hysterectomy) Osteochondroma of femur History of Problems with Anesthesia: No Social History Social History Housing: Apartment Alcohol intake: never Patient Tobacco Use Status: Never used Tobacco e-Cigarette/Vaping Use: Never Used Second Hand Smoke Exposure: No Use of substances other than those prescribed or required for medical reasons: No Are you DNR?: No Advance Directives: No Advance Directives Information Provided: Yes service: No Current occupational status: unemployed Cognitive needs: No Hearing needs: No Vision needs: No Meds Allergies Allergy/AdvReac Type Severity Reaction Status Date / Time oxycodone [Percocet] Allergy Intermediate rash Verified 02/06/23 08:57 sulindac Allergy Intermediate Abdominal Verified 02/06/23 08:57 Pain tramadol Allergy Intermediate Abdominal Verified 02/06/23 08:57 Pain diazepam [From VALIUM] Allergy Mild HIVES Verified 02/06/23 08:57 fluoxetine [From PROZAC] Allergy Mild HIVES Verified 02/06/23 08:57 Home Medications Medication Instructions Recorded Confirmed Last Taken Type No Known Home Meds 09/21/22 09/21/22 Unknown History Exam Exam Date and Time: February 05, [id number] Assessment and Plan Assessment Anesthesia Assessment: Chart Reviewed Final Anesthetic Review Family History of Problems with Anesthesia: No History of Problems with Anesthesia: No Documented by User: Dulce Song MD 02/06/23 09:20 [facility] Past Medical History Medical History (Updated 12/27/22 @ 16:22 by NATALIIA Baez) Cervical myelopathy Goiter Polyarthralgia Pure hypercholesterolemia Fibromyalgia Osteoarthritis, hip, bilateral Physical exam Overweight Neck pain Hip pain, bilateral Family History Family History Father Stroke Mother Diabetes mellitus Surgical History Surgical History Hx of colonoscopy History of esophagogastroduodenoscopy (EGD) H/O skin graft S/P TAMERA (total abdominal hysterectomy) Osteochondroma of femur Social History Social History Housing: Apartment Alcohol intake: never Patient Tobacco Use Status: Never used Tobacco e-Cigarette/Vaping Use: Never Used Second Hand Smoke Exposure: No Use of substances other than those prescribed or required for medical reasons: No Are you DNR?: No Advance Directives: No Advance Directives Information Provided: Yes service: No Current occupational status: unemployed Cognitive needs: No Hearing needs: No Vision needs: No Meds Allergies Allergy/AdvReac Type Severity Reaction Status Date / Time oxycodone [Percocet] Allergy Intermediate rash Verified 02/06/23 08:57 sulindac Allergy Intermediate Abdominal Verified 02/06/23 08:57 Pain tramadol Allergy Intermediate Abdominal Verified 02/06/23 08:57 Pain diazepam [From VALIUM] Allergy Mild HIVES Verified 02/06/23 08:57 fluoxetine [From PROZAC] Allergy Mild HIVES Verified 02/06/23 08:57 Home Medications Medication Instructions Recorded Confirmed Last Taken Type No Known Home Meds 09/21/22 09/21/22 Unknown History Exam Airway Mallampati Class: III TM Dist: >3cm Neck ROM: Full Assessment and Plan Assessment Anesthesia Assessment: Anesthesia Plan Discussed Final Anesthetic Review NPO: Yes ASA Class: II Final Preanesthetic Review: No Changes in Pt Med Stat, Meds/Allgs Chart Reviewed, Consent Obtained/Reviewed and Anes Risks/Benef Reviewed Patient Risk: Low Procedure Risk: Low Anesthetic Plan Anesthetic Plan: MAC: Disposition: Standard PACU
--- NOTE | 2023-02-06 07:19 | MHC.SHP ---
Pre-Procedural Eval Section A Date of Service: 02/06/23 The patient is an INPATIENT: No Changes since office visit: No Cold of Flu in the past 2 weeks, No New Medical Problems, No Changes in Medication and No Patient answered all questions The History & Physical has been completed within 30 days and I have reviewed it.: No Section B Chief Complaint: Other lesions of median nerve, unspecified upper Allergies: Allergies Allergy/AdvReac Type Severity Reaction Status Date / Time oxycodone [Percocet] Allergy Intermediate rash Verified 10/25/22 09:57 sulindac Allergy Intermediate Abdominal Verified 10/25/22 09:57 Pain tramadol Allergy Intermediate Abdominal Verified 10/25/22 09:57 Pain diazepam [From VALIUM] Allergy Mild HIVES Verified 10/25/22 09:57 fluoxetine [From PROZAC] Allergy Mild HIVES Verified 10/25/22 09:57 Review of Systems Sugical H&P ROS: Negative: Constitution, Cardiovascular, Respiratory, Neurological, Psychiatric, Hem-Onc, Allergic/Immunologic, Gastrointestinal, Genitourinary, Musculoskeletal, Integumentary, Endocrine and Eyes/Ears/Nose/Throat Exam Surgical H&P Exam: Not Evaluated: HEENT, Not Evaluated: Heart, Not Evaluated: Lungs, Not Evaluated: Extremities, Not Evaluated: Abdomen, Not Evaluated: Skin and Not Evaluated: Neurological Plan Diagnosis/Plan: Unchanged I have reviewed the history and physical and performed a pertinent physical examination on my patient. No changes have occurred unless specified. right carpal tunnel release Time Spent With Patient Time: Total time managing care of this patient today _10___ minutes.
[2023-02-06 08:50] VITALS: BMI 27.6
[2023-02-06 09:36] VITALS: BP 153/91; PULSE 65; RESP 18; TEMP 36.5; O2SAT 98
[2023-02-06] MEDS: Gabapentin 300 MG CAPSULE PO (09:41)
[2023-02-06] MEDS: Lactated Ringers 1,000 ML 100 ML IVCONT (09:41)
[2023-02-06] MEDS: methocarbamoL 750 MG TABLET PO (09:42)
--- NOTE | 2023-02-06 11:29 | PM.DS ---
DS: Providers Provider Date of Service: 02/06/23 Date of discharge: 02/06/23 Primary care physician: Vandana Buenrostro MD Admitting clinician: Odin Gonzales DS: Diagnosis Discharge Diagnosis (1) Carpal tunnel syndrome of right wrist: Status: Acute DS: Summary Time Spent with Patient Time attestation: Total time managing care of this patient today ____ minutes. Discharge coordination time: Less than 30 minutes Quality: Safe Use of Opioids Does Pt have an Active Cancer Diagnosis on the Problem List?: No Quality: Stroke Does the patient have a stroke diagnosis?: No Physical Exam Vital Signs: Vital Signs: Last Vital Signs Temp 97.7 F 02/06/23 09:36 Pulse 65 02/06/23 09:36 Resp 18 02/06/23 09:36 BP 153/91 H 02/06/23 09:36 Pulse Ox 98 02/06/23 09:36 O2 Del Method Room Air 02/06/23 09:36 BMI result Body Mass Index 27.6 Discharge Plan Discharge Patient Disposition: Home, Self-Care Referrals: Vandana Bragg MD [Primary Care Provider] - 1 Week Discharge Medications: New tramadol 50 mg tablet 50 mg PO Q8H PRN (Reason: pain) Qty: 10 0RF Discharge Orders: Discharge Order (Routine); Ordered 02/06/23 Ordered By: Florencio Trevizo Diet: Advance to usual diet Activity on Discharge: As tolerated Activity Restrictions/Additional Instructions: You may remove your olive wrap on post op day 3, as well as the dressing underneath it There are sutures in your wound, and you will need these removed 10-14 days after surgery. Please call the office to arrange this visit, You can use your hand as much as you like, however, please avoid straining or heavy lifting It will help swelling in your hand to keep it elevated when you are not using it. You can shower on post op day 1, but please keep wound dry You can drive when you feel comfortable and are off narcotics If you experience any signs of infection such as fever, chills or redness/discharge from your wound,please call office right away
[2023-02-06 11:57] VITALS: BP 131/81; PULSE 64; RESP 16; TEMP 36.7; O2SAT 96
[2023-02-06 12:12] VITALS: BP 147/83; PULSE 60; RESP 16; TEMP 36.4; O2SAT 96
--- NOTE | 2023-02-08 14:55 | W.PM.OPN ---
Operative Note Operative Note Date of Service: 02/06/23 Narrative: Diagnosis: right carpal tunnel syndrome Procedure: right median nerve release Surgeon: Odin Gonzales MD PhD Description procedure: This 52-year-old female is suffering from a right carpal tunnel syndrome. The patient was offered a decompression of the median nerve. The procedure complications were explained. The patient was consented. She was brought to the operating room, where moderate sedation was applied. Prepping and draping was done followed by time-out. Marcaine was injected into the mid volar region. A midvolar incision was made. The ligamentum carpi transversum was opened sharply until the median nerve became visible. A Metzenbaum scissor was used to decompress the median nerve proximally and distally over its trajectory. Significant compression was present. Hemostasis was done. The incision was closed with 3 interrupted sutures. A compressive RODY wrap was used for hemostasis. All sponge and needle counts were correct. Patient was transported to the recovery room. Anesthesia: Moderate sedation and local anesthetic Blood loss: Minimal Complications: None Disposition: Discharge home
== END 2023-02-06 13:10 | disposition home or self-care (01) ==
PROVIDERS: PCP Internal Medicine; Visit Provider Neurological Surgery
PROC: (CPT 64721; principal; 2023-02-06 10:40)
DX: G56.01 Carpal tunnel syndrome, right upper limb (principal); M25.50 Pain in unspecified joint; M79.7 Fibromyalgia; M54.2 Cervicalgia; E78.00 Pure hypercholesterolemia, unspecified; Z88.8 Allergy status to other drugs, medicaments and biological substances; Z98.890 Other specified postprocedural states
CPT/HCPCS: 64721; J0131; J0690

== ENCOUNTER → 2023-02-06 08:44 | Outpatient (BNV) | payer OTHER, SELFPAY | PROVIDERS: PCP Internal Medicine; Visit Provider Physician Assistant | DX: G56.01 Carpal tunnel syndrome, right upper limb (principal) | CPT/HCPCS: 64721; 99499 ==

== ENCOUNTER 2023-02-20 13:51 | Outpatient (AMB) | payer OTHER, SELFPAY ==
--- NOTE | 2023-02-20 14:18 | A.SPINEOV_ITS ---
Intake Intake Visit Reasons: 1st post op/remove stitches Allergies oxycodone [Percocet] Allergy (Intermediate, Verified 02/06/23 08:57) rash sulindac Allergy (Intermediate, Verified 02/06/23 08:57) Abdominal Pain tramadol Allergy (Intermediate, Verified 02/06/23 08:57) Abdominal Pain diazepam [From VALIUM] Allergy (Mild, Verified 02/06/23 08:57) HIVES fluoxetine [From PROZAC] Allergy (Mild, Verified 02/06/23 08:57) HIVES Assessment & Plan Assessment & Plan (1) S/P carpal tunnel release: Code(s): Z98.890 - Other specified postprocedural states Plan Procedure: Carpal tunnel release Adry Benavidez is a pleasant nicaraguan speaking female who comes in today for her 1st postoperative visit / suture removal. She reports she is concerned that her right hand continues to her and states that she has difficulty completing tasks in which he needs to articulate her hands/fingers. She states the dorsal surface of her forearm has some intermittent numbness when performing tasks, and she also has some numbness on the ventral surface of her wrist. She was encouraged that these symptoms should continue to improve as she continues to heal. We discussed nerve inflammation and the inflammation that occurs postoperatively. She understands and would like to come back and see us in a few weeks to reassess her hand function. She reports some reported numbness on the dorsal surface of her forearm in the ventral surface of her wrist. Patient is otherwise neurologically intact. No deficits with mobility of her right hand. Three interrupted sutures were removed from the ventral surface of the right hand/wrist. The procedure was uncomplicated and tolerated well. We will follow- up with the patient in 3 weeks to reasses hand function. She is very anxious and wanted to see us sooner than the normal 6 weeks between post operative visits. This encounter was completed with the help of computing architect staff via video inerpretation. Andi Gonzales MD,PhD [facility] Coding Level of Care Code Global (15594) Diagnoses S/P carpal tunnel release Z98.890
== END 2023-02-20 14:19 | disposition home or self-care (01) ==
PROVIDERS: PCP Internal Medicine; Visit Provider Physician Assistant
DX: Z98.890 Other specified postprocedural states (principal)
CPT/HCPCS: 99024

== ENCOUNTER → 2023-02-20 13:51 | Outpatient (BNVA) | payer OTHER, SELFPAY | PROVIDERS: PCP Internal Medicine; Visit Provider Physician Assistant ==

== ENCOUNTER 2023-03-13 14:46 | Outpatient (AMB) | payer OTHER, SELFPAY ==
--- NOTE | 2023-03-13 14:57 | A.SPINEOV_ITS ---
Intake Intake Visit Reasons: 1st post op Intake Note: Mrs. New is here today for her 1st post-op visit. Communication Coordinator Required: No Allergies oxycodone [Percocet] Allergy (Intermediate, Verified 02/06/23 08:57) rash sulindac Allergy (Intermediate, Verified 02/06/23 08:57) Abdominal Pain tramadol Allergy (Intermediate, Verified 02/06/23 08:57) Abdominal Pain diazepam [From VALIUM] Allergy (Mild, Verified 02/06/23 08:57) HIVES fluoxetine [From PROZAC] Allergy (Mild, Verified 02/06/23 08:57) HIVES Assessment & Plan Assessment & Plan (1) S/P carpal tunnel release: Code(s): Z98.890 - Other specified postprocedural states Plan Procedure: R carpal tunnel release Reema comes in today for her 1st postoperative visit. She came in last to have her sutures removed post right-sided carpal tunnel release. She reports that the incision site has healed well since the surgery / the suture removal, but unfortunately she still has quite a bit of tenderness in the affected wrist when attempting to perform intricate movements with her hands such as grasping a cup or utilizing her hands at work. At rest she feels no pain/tenderness. No neurological deficits. Patient has full ROM of R hand. Incision site is closed and well healed. We will follow-up with the patient in 6 weeks for his 2nd postoperative visit. At that time we will discuss the possibility of scheduling her for a left-sided carpal tunnel release. Andi Gonzales MD,PhD [facility] Coding Level of Care Code Global (07527) Diagnoses S/P carpal tunnel release Z98.890
== END 2023-03-13 15:10 | disposition home or self-care (01) ==
PROVIDERS: PCP Internal Medicine; Visit Provider Physician Assistant
DX: Z98.890 Other specified postprocedural states (principal)
CPT/HCPCS: 99024

== ENCOUNTER → 2023-03-13 14:46 | Outpatient (BNVA) | payer OTHER, SELFPAY | PROVIDERS: PCP Internal Medicine; Visit Provider Physician Assistant | DX: Z48.811 Encounter for surgical aftercare following surgery on the nervous system (principal); Z98.890 Other specified postprocedural states | CPT/HCPCS: 99212 ==

== ENCOUNTER 2023-04-24 13:28 | Outpatient (AMB) | payer OTHER, SELFPAY ==
--- NOTE | 2023-04-24 13:38 | A.OFFVIS_ITS ---
Intake Intake Visit Reasons: 2nd post op Intake Note: patient here for 2nd post op [employer] Required: Yes Allergies oxycodone [Percocet] Allergy (Intermediate, Verified 02/06/23 08:57) rash sulindac Allergy (Intermediate, Verified 02/06/23 08:57) Abdominal Pain tramadol Allergy (Intermediate, Verified 02/06/23 08:57) Abdominal Pain diazepam [From VALIUM] Allergy (Mild, Verified 02/06/23 08:57) HIVES fluoxetine [From PROZAC] Allergy (Mild, Verified 02/06/23 08:57) HIVES PFSH Medical History Cervical myelopathy Goiter Polyarthralgia Pure hypercholesterolemia Fibromyalgia Osteoarthritis, hip, bilateral Physical exam Overweight Neck pain Hip pain, bilateral Surgical History (Updated 02/20/23 @ 14:24 by NATALIIA Baez) Hx of colonoscopy History of esophagogastroduodenoscopy (EGD) H/O skin graft S/P TAMERA (total abdominal hysterectomy) Osteochondroma of femur Family History Father Stroke Mother Diabetes mellitus Social History Housing: Apartment Alcohol intake: never Patient Tobacco Use Status: Never used Tobacco e-Cigarette/Vaping Use: Never Used Second Hand Smoke Exposure: No service: No Current occupational status: unemployed Cognitive needs: No Hearing needs: No Vision needs: No Assessment & Plan Assessment & Plan (1) S/P carpal tunnel release: Code(s): Z98.890 - Other specified postprocedural states Plan Procedure: R carpal tunnel release Reema comes in today for another follow-up visit. To recap she is status post a right-sided carpal tunnel release for shooting radicular pains origin ating from her wrist going upper forearm to her elbow. She also reported numbness in her right hand and had confirmed carpal tunnel on EMG. She continues to report weakness when engaging her right hand, and also endorses associated pain when engaging her right fingers and right wrist muscles. She states this has prevented her from completing her duties at work and causes her to continue to take leave from work. She states that her hand pain is worse in her 3rd and 4th digits on the right side. No neurological deficits. 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 She does still report shooting pains in her hand/forearm when engaging her interossei muscles and attempting to engage wrist flexion. Incision site on ventral wrist is closed and well healed. I will review her cervical spine imaging with Dr. Gonzales in clinic tomorrow to evaluate for any possible etiologies for continued pain. I will also send her for physical therapy for gentle range of motion and strength training. Andi Gonzales MD,PhD [facility] Orders: Orders PT Evaluation and Treatment Today Z98.890 - Other specified postprocedural states Coding Level of Care Code Global (32651) Diagnoses S/P carpal tunnel release Z98.890
== END 2023-04-24 14:06 | disposition home or self-care (01) ==
PROVIDERS: PCP Internal Medicine; Visit Provider Physician Assistant
DX: Z98.890 Other specified postprocedural states (principal)
CPT/HCPCS: 99024

== ENCOUNTER → 2023-04-24 13:28 | Outpatient (BNVA) | payer OTHER, SELFPAY | PROVIDERS: PCP Internal Medicine; Visit Provider Physician Assistant | DX: Z48.811 Encounter for surgical aftercare following surgery on the nervous system (principal) | CPT/HCPCS: 99212 ==

== ENCOUNTER 2023-05-28 07:16 | Outpatient (AMB) | payer OTHER, SELFPAY ==
--- NOTE | 2023-05-28 07:30 | MHC.PC.OV ---
Vital Signs 05/28/23 07:31 Height 5 ft 2 in Weight 156 lb BMI 28.5 BP 130/82 Blood Pressure Location Lt brachial Position Sitting Intake Visit Reasons: pphyscia Intake Note: Patient here for a physical exam Para Professional Required: No Accompanied by: Self / Same As Patient Allergies oxycodone [Percocet] Allergy (Intermediate, Verified 05/28/23 07:47) rash sulindac Allergy (Intermediate, Verified 05/28/23 07:47) Abdominal Pain tramadol Allergy (Intermediate, Verified 05/28/23 07:47) Abdominal Pain diazepam [From VALIUM] Allergy (Mild, Verified 05/28/23 07:47) HIVES fluoxetine [From PROZAC] Allergy (Mild, Verified 05/28/23 07:47) HIVES Medication List - Last Reconciled 05/28/23 by Vandana Buenrostro MD No Known Home Meds Tobacco use date assessed: 05/28/23 Dental Screening Dental Screen Date: 05/28/23 Did you have a dental visit in the last 12 months?: Yes Did you have a dental problem in the last 6 months where you did not have access to dental care?: No Was dental information given to patient?: Patient has dentist HPI HPI Comments History of Present Illness Details This is a 53-year-old female that comes for her physical exam. Last mammogram was July 2022 and has an appointment for August 2023. Last colonoscopy was 2021 which was normal and next colonoscopy should be 2031. No need for Pap smear due to hysterectomy for benign reasons. Has some polyuria. No chest pain or shortness of breath. PFSH Medical History (Updated 05/28/23 @ 08:05 by Vandana Buenrostro MD) Syrinx of spinal cord Cervical myelopathy Goiter Polyarthralgia Pure hypercholesterolemia Fibromyalgia Osteoarthritis, hip, bilateral Physical exam Overweight Neck pain Hip pain, bilateral Surgical History Hx of colonoscopy History of esophagogastroduodenoscopy (EGD) H/O skin graft S/P TAMERA (total abdominal hysterectomy) Osteochondroma of femur Family History Father Stroke Mother Diabetes mellitus Social History Housing: Apartment Alcohol intake: never Patient Tobacco Use Status: Never used Tobacco e-Cigarette/Vaping Use: Never Used Second Hand Smoke Exposure: No service: No Current occupational status: unemployed Cognitive needs: No Hearing needs: No Vision needs: No Questionnaire PHQ-9 Over the last 2 weeks, how often have you been bothered by any of the following problems? 1. Little interest or pleasure in doing things: not at all 2. Feeling down, depressed, or hopeless: not at all 3. Trouble falling or staying asleep, or sleeping too much: not at all 4. Feeling tired or having little energy: not at all 5. Poor appetite or overeating: not at all 6. Feeling bad about yourself - or that you are a failure or have let yourself or your family down: not at all 7. Trouble concentrating on things, such as reading the newspaper or watching television: not at all 8. Moving or speaking so slowly that other people could have noticed. Or the opposite - being so fidgety or restless that you have been moving around a lot more than usual: not at all 9. Thoughts that you would be better off or of hurting yourself in some way: not at all Total score: 0 Depression Screening Interpretation: Negative Depression Screening Done: Yes 99987 - PHQ-9 Billing: Yes Source: Developed by Drs. Pranav Singh, Kiesha Temple, Leon Rodriguez and colleagues, with an educational vijay from [employer]. Thrive Questionnaire Date Thrive assessed: 05/28/23 I am a: Patient What is your living situation today?: I have a steady place to live Within the past 12 months, did the food you bought not last and you didn't have the money to get more?: Never true Within the past 12 months, did you worry whether your food would run out before you got money to buy more?: Never true Do you have trouble paying for medicines?: No Do you have trouble getting transportation to medical appointments?: No Do you have trouble paying your heating and electricity bill?: No Do you have trouble taking care of your child, family member or friend?: No Do you have trouble with day-to-day activities such as bathing, preparing meals, shopping, managing finances, etc.?: No Are you currently unemployed and looking for a job?: No Are you interested in more education?: No Please select the resources that you would like help with: None Currently or been in a relationship where the following occur: no concerns reported THRIVE Score: 0 AUDIT C Alcohol Use Questionnaire (AUDIT-C) 1. How often do you have a drink containing alcohol?: Never Total Score: 0 LOREE-7 AMB Questionnaire LOREE-7 Date LOREE - 7 assessed: 05/28/23 Feeling nervous, anxious, or on edge: 0 = Not at all Not being able to stop or control worryin = Not at all Worrying too much about different things: 0 = Not at all Trouble relaxin = Not at all Being so restless that it is hard to sit still: 0 = Not at all Becoming easily annoyed or irritable: 0 = Not at all Feeling afraid as if something awful might happen: 0 = Not at all Total LOREE-7 score (0-4 normal; 5-9 mild; 10-14 moderate; 15-21 severe): 0 Source: Developed by Drs. Pranav Singh, Kiesha Temple, Leon Rodriguez and colleagues, with an educational vijay from [employer]. LOREE-7 Assessment Billing LOREE-7 Assessment Tool: LOREE-7 Assessment 59927 Review of Systems Const All systems reviewed & are unremarkable except as noted in HPI and below Eyes Reports no additional complaints, Denies change in vision and Denies other visual disturbances Card Denies chest pain at rest, Denies chest pain with activity, Denies edema, Denies irregular heart rhythm, Denies claudication, Denies dyspnea, Denies dyspnea on exertion, Denies orthopnea, Denies paroxysmal nocturnal dyspnea and Denies slow heart rate Resp Denies cough, Denies dyspnea and Denies dyspnea on exertion GI Denies abdominal pain, Denies change in bowel habits, Denies excessive flatus, Denies nausea and Denies vomiting Reports nocturia, Denies urinary incontinence, Denies urinary hesitancy and Denies urinary urgency Musc Denies abnormal gait, Denies atrophy, Denies deformity and Denies limited range of motion Skin/Breast Denies bleeding lesions, Denies changing lesions and Denies rash Neuro Denies abnormal gait, Denies behavioral changes, Denies confusion and Denies lack of coordination Psych Denies behavioral changes and Denies confusion Physical exam (Primary Care) Vital Signs: Last Vital Signs BP 130/82 05/28/23 07:31 BMI result Body Mass Index 28.5 Tobacco/Smoking Status: Tobacco use Status Tobacco use date assessed 05/28/23 05/28/23 07:38 Patient Tobacco Use Status Never used Tobacco 05/28/23 07:38 e-Cigarette/Vaping Use Never Used 05/28/23 07:38 PHQ-9: PHQ-9 Score PHQ-9: Total score 0 05/28/23 07:38 Depression Screening Interpretation: Negative Thrive Assessment: Date of Thrive Assessment Date Thrive assessed 05/28/23 05/28/23 07:38 Currently or been in a relationship where the following occur: no concerns reported Const General: No confusion Orientation/consciousness: patient oriented x3 and No confusion HENMT Head: Yes normal to inspection, Yes normocephalic and Yes atraumatic Ears: external ears normal Eyes General: appearance normal, both eyes and all related structures Eyelids: Yes eyelids normal Conjunctivae: conjunctivae normal Neck Neck: Yes normal visual inspection and Yes supple Resp Effort & Inspection: normal respiratory effort Auscultation: clear to auscultation bilaterally Cardio Jugular venous distension: no JVD Rate: regular rate Rhythm: regular rhythm Heart sounds: S1 normal heart sound present and S2 normal heart sound present GI Inspection: Yes normal to inspection Palpation (GI): Soft to palpation and nontender Auscultation: normal bowel sounds Skin General skin exam: no rashes or lesions noted Neuro General: patient oriented x3, no focal motor deficits and No confusion Extrem General: Yes full ROM Psych Appearance: grossly normal Assessment and Plan Assessment & Plan (1) Physical exam: Code(s): Z00.00 - Encounter for general adult medical examination without abnormal findings Plan: Repeat in a year. Orders: Orders Free T4 (Free Thyroxine) Today E04.1 - Nontoxic single thyroid nodule Thyroglobulin Antibodies Today E04.1 - Nontoxic single thyroid nodule Thyroid Peroxidase Antibodies Today E04.1 - Nontoxic single thyroid nodule Comprehensive Dolliver. Panel Fast Today Z00.00 - Encounter for general adult medical examination without abnormal findings US thyroid 5 Months E04.1 - Nontoxic single thyroid nodule XR DEXA axial skeleton Today N95.9 - Unspecified menopausal and perimenopausal disorder Thyroid Stimulating Hormone Today E04.1 - Nontoxic single thyroid nodule Lipid Panel Today E78.5 - Hyperlipidemia, unspecified, Z00.00 - Encounter for general adult medical examination without abnormal findings Coding Level of Care Code Est Pt Prev Care 40-64y(03129) Diagnoses Physical exam Z00.00 Additional Codes LOREE-7 Assessment Billing - LOREE-7 Assessment Tool: LOREE-7 Assessment 55585 ([id number]) Time Spent (min) 32
[2023-05-28 07:31] VITALS: BP 130/82; BMI 28.5
== END 2023-05-28 07:56 | disposition home or self-care (01) ==
PROVIDERS: Visit Provider Internal Medicine
DX: Z00.00 Encounter for general adult medical examination without abnormal findings (principal); E04.1 Nontoxic single thyroid nodule; Z90.710 Acquired absence of both cervix and uterus
CPT/HCPCS: 99396

== ENCOUNTER 2023-05-28 08:03 | Outpatient (REF) | payer OTHER, SELFPAY ==
[2023-05-28 09:10] LABS: Alanine Aminotransferase 16 U/L (0-31); Albumin Level 4.4 g/dL (3.5-5.0); Alkaline Phosphatase 86 U/L (39-117); Anion Gap 11 (12-20); Aspartate Amino Transferase 15 U/L (5-31); Bilirubin Total 0.3 mg/dL (0.0-1.0); Blood Urea Nitrogen 13 mg/dL (9-16); Calcium 9.2 mg/dL (8.4-10.2); Carbon Dioxide 28 mmol/L (22-29); Chloride 104 mmol/L (96-108); Cholesterol 231 mg/dL (<200); Estimated Glomerular Filt Rate > 60; Glucose Fasting 103 mg/dL (60-99); HDL Cholesterol 67 mg/dL (>40); LDL Cholesterol Calculated 146 mg/dL (<100); Potassium 3.9 mmol/L (3.3-5.1); Sodium 139 mmol/L (135-145); Total Protein 7.9 g/dL (6.5-8.0); Triglycerides 90 mg/dL (<150)
[2023-05-28 09:17] LABS: Free T4 (Free Thyroxine) 1.17 ng/dL (0.71-1.85); Thyroid Stimulating Hormone 3.17 uIU/mL (0.32-4.0)
[2023-05-29 08:59] LABS: Thyroglobulin Antibodies <1 IU/mL (< or = 1)
[2023-05-29 09:08] LABS: Thyroid Peroxidase Antibodies 4 IU/mL (<9)
== END 2023-05-28 08:04 | disposition home or self-care (01) ==
LOC: HO.LAB 08:03
PROVIDERS: PCP Internal Medicine; Visit Provider Internal Medicine
DX: Z00.00 Encounter for general adult medical examination without abnormal findings (principal); E78.5 Hyperlipidemia, unspecified; E04.1 Nontoxic single thyroid nodule
CPT/HCPCS: 36415; 80053; 80061; 84439; 84443; 86376; 86800

== ENCOUNTER 2023-06-07 09:37 | Outpatient (REF) | payer OTHER, SELFPAY ==
--- NOTE | ~2023-06-07 | MM_ITS ---
EXAMINATION: BONE DENSITOMETRY CLINICAL INDICATION: Unspecified menopausal and perimenopausal disorder. COMPARISON: Baseline BD dated 05/25/2009. TECHNIQUE: Using a [employer] Mail DXA System (software version: 13.1) manufactured by [employer], dual-energy x-ray absorptiometry was performed of the lumbar spine and left hip. The images are of good technical quality. Summary results are attached. FINDINGS: LEFT FEMUR, NECK: Current: BMD 1.002 g/cm2, Z-score 0.6, T-score -0.3, normal. Baseline: BMD 1.170 g/cm2. LEFT FEMUR, TOTAL: Current: BMD 1.126 g/cm2, Z-score 1.5, T-score 0.9, normal, 7.2% decrease from baseline (<5% change is not significant). Baseline: BMD 1.213 g/cm2. AP SPINE L1-L4: Current: BMD 1.058 g/cm2, Z-score -0.4, T-score -1.0, normal, 13.2% decrease from baseline (<5% change is not significant). Baseline: BMD 1.219 g/cm2. IDENTIFIED RISK FACTORS: Menopause, hysterectomy, bilateral oophorectomy, recurrent falls. HISTORY OF FRACTURE: None listed. MEDICATIONS: None listed. MM/XR DEXA axial skeleton IMPRESSION: 1. DIAGNOSIS: Normal bone density based on the lowest T-score value of -1.0 in the lumbar spine applying World Health Organization criteria. 2. 10-YEAR FRACTURE RISK PREDICTION, FRAX: According to the guidelines, FRAX calculation should only be performed on patients in the osteopenia bone density category. Therefore, FRAX was not performed on this patient. 3. Treatment Recommendations: NOF guidelines recommend consideration for treatment in postmenopausal women and men age 50 and older presenting with the following: -A hip or vertebral (clinical or morphometric) fracture. -T-score less than or equal to -2.5 at the femoral neck or spine after appropriate evaluation to exclude secondary causes. -Low bone mass at the hip or spine and a 10-year fracture probability by FRAX of greater than or equal to 3% for hip fracture or greater than or equal to 20% for major osteoporotic fracture based on the [place] adapted WHO algorithm. 4. Other Recommendations: All treatment decisions require clinical judgment and consideration of individual patient factors, including patient preferences, comorbidities, previous drug use, risk factors not captured in the FRAX model (e.g. frailty, falls, vitamin D deficiency, increased bone turnover, interval significant decline in bone density) and possible under or overestimation of fracture risk by FRAX. FUTURE SCAN RECOMMENDATION: People with diagnosed cases of osteoporosis or at high risk for fracture should have regular bone mineral density tests. For patients eligible for Medicare, routine testing is allowed once every 2 years. The testing frequency can be increased to one year for patients who have rapidly progressing disease, those who are receiving or discontinuing medical therapy to restore bone mass, or have additional risk factors.
== END 2023-06-07 09:38 | disposition home or self-care (01) ==
LOC: HO.MAMMO 09:37
PROVIDERS: PCP Internal Medicine; Visit Provider Internal Medicine
DX: Z13.820 Encounter for screening for osteoporosis (principal); N95.9 Unspecified menopausal and perimenopausal disorder
CPT/HCPCS: 77080

== ENCOUNTER 2023-06-13 13:30 | Outpatient (REF) | payer OTHER, SELFPAY ==
--- NOTE | 2023-06-13 13:35 | EMG_ITS ---
Chief complaint: Status post right Carpal Tunnel Syndrome surgery January 2023. Developed swelling of the wrist postoperatively. But admits that numbness on fingers are slightly better. She also has neck pain. Reason for referral: Evaluate for Carpal Tunnel Syndrome versus radiculopathy Referred by: Andi WILLIAM Procedure done: Right upper extremity NCS/EMG Precautions and/or limitations: None The limb temperature was monitored continuously and remained between 32-36 degrees C during the performance of the NCS. Nerve Conduction Studies Anti Sensory Summary Table ?Stim Site NR Onset (ms) Norm Onset (ms) Peak (ms) Norm Peak (ms) O-P Amp (?V) Norm O-P Amp Site1 Site2 Delta-0 (ms) Dist (cm) Dago (m/s) Norm Dago (m/s) Right Median Anti Sensory (2nd Digit) Wrist ? 2.8 3.6 <3.6 13.8 >10 Wrist 2nd Digit 2.8 14.0 50 Right Radial Anti Sensory (Thumb) Forearm ? 1.5 1.9 <3.1 37.0 Forearm Thumb 1.5 0.0 Right Ulnar Anti Sensory (5th Digit) Wrist ? 2.2 2.8 <3.7 16.6 >15.0 Wrist 5th Digit 2.2 14.0 64 Motor Summary Table ?Stim Site NR Onset (ms) Norm Onset (ms) O-P Amp (mV) Norm O-P Amp iAmp (mV) Amp (1st) (%) Site1 Site2 Delta-0 (ms) Dist (cm) Dago (m/s) Norm Dago (m/s) Right Median Motor (Abd Poll Brev) Wrist ? 3.9 <3.9 11.1 >4.5 12.9 100.0 Elbow Wrist 2.7 18.0 67 >45 Elbow ? 6.6 12.0 14.3 108.1 Right Ulnar Motor (Abd Dig Minimi) Wrist ? 2.2 <3.0 9.4 >5 11.0 100.0 B Elbow Wrist 2.9 16.0 55 >45 B Elbow ? 5.1 7.7 9.2 81.9 A Elbow B Elbow 0.8 10.0 125 >45 A Elbow ? 5.9 7.2 8.6 76.6 EMG ?Side Muscle Nerve Root Ins Act Fibs Psw Amp Dur Poly Recrt Int Pat Comment Right 1stDorInt Ulnar C8-T1 Nml Nml Nml Nml Nml 0 Nml Complete Right FlexCarRad Median C6-7 Nml Nml Nml Nml Nml 0 Nml Complete Right Biceps Musculocut C5-6 Nml Nml Nml Nml Nml 0 Nml Complete Right Triceps Radial C6-7-8 Nml Nml Nml Nml Nml 0 Nml Complete Right Deltoid Axillary C5-6 Nml Nml Nml Nml Nml 0 Nml Complete Paraspinal EMG ?Side Muscle Nerve Root Ins Act Fibs Psw Comment Right Cervical Upper Rami Nml Nml Nml Right Cervical Mid Rami Nml Nml Nml Right Cervical Lower Rami Nml Nml Nml FINDINGS: All motor and sensory nerves tested showed normal latencies, amplitudes and conduction velocities. Concentric needle EMG was performed in selected muscles of the right upper extremity and cervical paraspinal. Study did not reveal signs of electric abnormalities as shown in the table below. IMPRESSION: 1. This is a normal study. 2. There is no electrodiagnostic evidence for median neuropathy, ulnar neuropathy, brachial plexopathy, or cervical radiculopathy. Thank you for your kind referral. Nataly Liriano MD, [place] Board Certified, [place] Board [employer] and Rehabilitation (ABPMR) Board Certified, [place] Board of Electrodiagnostic Medicine (ABEM) [place] [id number] [facility]
== END 2023-06-13 13:31 | disposition home or self-care (01) ==
LOC: HO.NEURO 13:30
PROVIDERS: PCP Internal Medicine; Visit Provider Physician Assistant
DX: Z98.890 Other specified postprocedural states (principal)
CPT/HCPCS: 95886; 95909

== ENCOUNTER → 2023-06-13 13:35 | Outpatient (BNV) | payer OTHER, SELFPAY | PROVIDERS: PCP Internal Medicine; Visit Provider Physical Medicine & Rehabilitation | DX: M25.531 Pain in right wrist (principal); R20.0 Anesthesia of skin | CPT/HCPCS: 95886; 95909 ==

== ENCOUNTER 2023-06-25 13:00 | Outpatient (RCR) | payer OTHER, SELFPAY ==
--- NOTE | 2023-05-23 12:00 | MHC.OT.EP ---
[address] [phone] Occupational Therapy Plan of Care Patient Name: Reema New Date of Evaluation: 05/23/23 Diagnosis: Right CTR Pain Location: 6/10 resting pain right dorsal forearm radiating wrist to elbow and right palm up to long finger Tenderness to palpate over dorsal wad Pain Score: 6 Pain Scale Used: Numeric (0 - 10) Aggravating Factors: Worse w/ general use and movement Alleviating Factors: Squeezing ball 15 reps until bothersome, Advil PRN Assessment: 53 yo female w/ hx of numbness and tinging in right hand for past five years, she trialed therapy but no relief and continued to have difficulty w/ daily activities and painful shooting in her hand. She is now post-op CTR 02/06/23 w/ Dr Gonzales, but continues to have shooting discomfort from wrist radiating up to shoulder. On assessment, she is reporting general discomfort on both sides, but no clear replication of symptoms w/ CTS testing. She does appear to have irritation of the superficial radial sensory nerve on right, and ulnar nerve irritation w/ prolonged elbow flex, which she reports occurs at nighttime as well. She has limited end range w/ cervical movement and significantly impaired B/L shoulder flexion w/ rounded posturing. We have discussed therapy options and treatment goals, I anticipate she will do well w/ general program for stretching, strengthening and nerve gliding, with focus on posture management and activity/joint modifications. Frequency and Duration: The patient will be seen 2x/wk for 6 weeks Short Term Goals: Ind w/ HEP for AROM UB and nerve glides pt to report >15 min daily light walking/cardio activity for circulation Ind w/ right volar wrist scar management techniques B/L shoulder AROM to 110 degrees Right gross grasp >15lb Senior Living Goals: B/L shoulder flex to 130 degrees Right gross grasp >30 lbs Pt to report ease w/ moderate bimanual home activities (laundry, cooking, vacuuming, etc) Pt tp report ease w/ nighttime symptoms following change in sleep position Treatment Plan: Therapeutic Exercise Therapeutic Activity Home Exercise Program Patient Education Desensitization/Sensory Re-ed Edema Control ADL Training Fluidotherapy MHP Cold Packs Joint Mobilization Soft Tissue Mobilization Kinesiotaping Electronically Signed By: Bettye Zapka, OTR/L CHT Please Sign and return to therapist. Thank you once again for your referral.
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
== END 2023-06-26 11:46 | disposition home or self-care (01) ==
LOC: HO.OT 13:00
PROVIDERS: PCP Internal Medicine; Visit Provider Physician Assistant
DX: Z98.890 Other specified postprocedural states (principal)
CPT/HCPCS: 97110; 97140; 97166

== ENCOUNTER 2023-07-03 14:27 | Outpatient (AMB) | payer OTHER, SELFPAY ==
--- NOTE | 2023-07-03 12:51 | HO.SPINEOV ---
Intake Intake Visit Reasons: f/up after PT Intake Note: Ms. New is here today to F/u after PT Rn Surgery Required: No Allergies oxycodone [Percocet] Allergy (Intermediate, Verified 05/28/23 07:47) rash sulindac Allergy (Intermediate, Verified 05/28/23 07:47) Abdominal Pain tramadol Allergy (Intermediate, Verified 05/28/23 07:47) Abdominal Pain diazepam [From VALIUM] Allergy (Mild, Verified 05/28/23 07:47) HIVES fluoxetine [From PROZAC] Allergy (Mild, Verified 05/28/23 07:47) HIVES Assessment & Plan Assessment & Plan (1) S/P carpal tunnel release: Code(s): Z98.890 - Other specified postprocedural states Plan Procedure: R carpal tunnel release Reema comes in today for another follow-up visit after completing physical therapy. She is now almost 5 months out from a right-sided carpal tunnel release for shooting pains originating from her wrist going upper forearm to her elbow. She also reported numbness in her right hand and had confirmed carpal tunnel on EMG. In the interim since her previous visit, she completed a post-operative EMG which showed no electrodiagnostic evidence for median neuropathy, ulnar neuropathy, brachial plexopathy, or cervical radiculopathy. Unfortunately, she continues to report a feeling of shooting pains in her right upper extremity in the similar distribution in which we previously discussed. She also states that her right hand feels swollen and that it will intermittently become numb when she stands upright. She brought a friend with her today who asked many questions on he behalf that I answered to the best of my ability. No new neurological deficits. 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 There does not appear to be any obvious swelling on the R hand despite the patient insisting it is there. No myelopathic relfexes. Incision site on ventral wrist is closed and well healed. I explained to Reema that her cervical imaging was reviewed multiple times by this parts data writer and Dr. Gonzales. She does have an old disc bulge at C3-4 which I reviewed multiple times with Dr. Gonzales. CT scan shows calcification around the disc bulge. She has cord signal change that is chronic and longstanding. It is not causing severe foraminal stenosis on either side. She has no specific dermatomal distribution in which her symptoms can be tracked. No myelopathic relfexes. EMG refutes cervical etiology. There is no obvious intervention that can be pursued to address her right-sided upper extremity symptoms at this time. She then stated she would like to discuss this further with Dr. Gonzales, and is also going to go get a second opinion. She was encouraged to do so, and this case again was reviewed with Dr. Gonzales. Unfortunately we were unable to discuss the potential for a left sided carpal tunnel release. Andi Gonzales MD,PhD [facility] Coding Level of Care Code Global (76737) Diagnoses S/P carpal tunnel release Z98.890
== END 2023-07-03 15:18 | disposition home or self-care (01) ==
PROVIDERS: PCP Internal Medicine; Visit Provider Physician Assistant
DX: Z98.890 Other specified postprocedural states (principal)
CPT/HCPCS: 99213

== ENCOUNTER → 2023-07-03 14:27 | Outpatient (BNVA) | payer OTHER, SELFPAY | PROVIDERS: PCP Internal Medicine; Visit Provider Physician Assistant | DX: Z86.69 Personal history of other diseases of the nervous system and sense organs (principal); Z98.890 Other specified postprocedural states | CPT/HCPCS: 99212 ==

== ENCOUNTER 2023-07-25 15:20 | Outpatient (AMB) | payer OTHER, SELFPAY ==
--- NOTE | 2023-07-25 15:21 | A.SPINEOV_ITS ---
Intake Intake Visit Reasons: discuss outcomes of sx Intake Note: Ms. New is here to discuss outcomes of sx Staff Counsel Required: Yes Staff Counsel Name: Tablet Allergies oxycodone [Percocet] Allergy (Intermediate, Verified 05/28/23 07:47) rash sulindac Allergy (Intermediate, Verified 05/28/23 07:47) Abdominal Pain tramadol Allergy (Intermediate, Verified 05/28/23 07:47) Abdominal Pain diazepam [From VALIUM] Allergy (Mild, Verified 05/28/23 07:47) HIVES fluoxetine [From PROZAC] Allergy (Mild, Verified 05/28/23 07:47) HIVES Assessment & Plan Assessment & Plan (1) S/P carpal tunnel release: Code(s): Z98.890 - Other specified postprocedural states Plan Dear colleague, On 07/25/2023, I saw for follow-up Reema New. She is accompanied by her . The office visit was done with the aid of an machine tool technology instructor and during the last part of visit also NATALIIA Baez was present. The main reason for this visit was to discuss her ongoing right arm and hand symptoms despite carpal tunnel release and to discuss if she can return to work full-time. In summary, this patient was originally seen for a large disc osteophyte C3-C4 compressing the left side of the spinal cord. She presented with left arm and hand numbness. Follow-up visits it appeared that also the right arm and hand were involved. Initially, we thought that she needed a C4 corpectomy. However on multiple physical examinations we were not able to demonstrate myelopathic findings. We were however able to demonstrate bilateral carpal tunnel syndrome findings which were confirmed with EMG. Therefore we decided to do a right- sided carpal tunnel release and scheduled her for a left-sided carpal tunnel release. Unfortunately, she did not get a relief from the carpal tunnel release 7 months ago. Therefore the left-sided carpal tunnel release was not done. She comes in today questioning why she still having symptoms in her right hand despite an EMG showing no residual median nerve compression. She also wants to know if she can return to work. I explained to the patient that a surgical intervention does not give her 100% guarantee and symptoms can persist despite a normal postoperative EMG. I also told her that there is a remote chance that her symptoms are related to the calcified lesion at the C3-4 level. However, in the absence of myelopathic features on exam, I think a rather dangerous surgery to decompress the spinal cord is not indicated for 2 main reasons; First, the surgery can result in more and potentially catastrophical neurological symptoms and secondly there is absolutely no guarantee that the bilateral arm symptoms will respond to this surgery. I also explained that I can not offer additional hand surgery as the EMG is normal. Again, this does not mean that she has not having residual symptoms but it simply means that I can not treat those with additional surgery. I advised her to return to full-time duty and if she is unable to function to apply for disability. I advised her to get a 2nd opinion regarding her ongoing bilateral arm and and symptoms. We spent more than 60 minutes in this consult to discuss her ongoing symptoms, findings and plan. Thank you for letting me take care of your patient. Do not hesitate to call me with any questions or concerns. Odin Gonzales MD, PhD Spine Fellowship Trained Neurosurgeon Director, [facility] Coding Level of Care Code Est Pt Level 5 (35497) Diagnoses S/P carpal tunnel release Z98.890
== END 2023-07-25 16:12 | disposition home or self-care (01) ==
PROVIDERS: PCP Internal Medicine; Visit Provider Neurological Surgery
DX: Z98.890 Other specified postprocedural states (principal)
CPT/HCPCS: 99215

== ENCOUNTER → 2023-07-25 15:20 | Outpatient (BNVA) | payer OTHER, SELFPAY | PROVIDERS: PCP Internal Medicine; Visit Provider Neurological Surgery | DX: Z98.890 Other specified postprocedural states (principal) | CPT/HCPCS: 99212 ==

== ENCOUNTER → 2023-08-08 08:00 | Outpatient (BNV) | payer OTHER, SELFPAY | PROVIDERS: PCP Internal Medicine; Visit Provider Radiology Diagnostic Radiology | DX: Z12.31 Encounter for screening mammogram for malignant neoplasm of breast (principal) | CPT/HCPCS: 77063; 77067 ==

== ENCOUNTER 2023-08-08 08:02 | Outpatient (REF) | payer OTHER, SELFPAY ==
--- NOTE | ~2023-08-08 | MM_ITS ---
EXAMINATION: MM SCREENING DIGITAL BREAST TOMOSYNTHESIS, BILATERAL CLINICAL INFORMATION: Screening. Asymptomatic. Right chest wall burn as a child, chronic soft tissue changes. COMPARISON: Mammography: 08/02/2022, 06/15/2021, 12/05/2019, 11/28/2018 (baseline). TECHNIQUE: Digital breast tomosynthesis is performed in both the craniocaudal and mediolateral oblique views along with computer-aided detection (CAD). Synthesized 2D images are generated from the tomosynthesis. An added left MLO view was submitted. FINDINGS: There are scattered areas of fibroglandular density (ACR BI-RADS breast composition Category b). Parenchymal pattern similar to prior studies. There is no developing density, mass, or architectural abnormality. There are no suspicious grouped calcifications identified. There is benign chronic scarring of the right breast consistent with the clinical history and unchanged from numerous prior studies. There is otherwise no skin or axillary abnormality. MM/MM tomosynthesis screening BI IMPRESSION: No mammographic evidence of malignancy. Stable benign findings. ASSESSMENT: BI-RADS BI-RADS 2 - Benign Findings RECOMMENDATION: Routine annual mammography screening. 1 year F/U This examination should not preclude the clinical evaluation of a suspicious palpable abnormality. This patient's information was entered into a reminder system with a target due date for their next mammogram.
== END 2023-08-08 08:03 | disposition home or self-care (01) ==
LOC: HO.MAMMO 08:02
PROVIDERS: PCP Internal Medicine; Visit Provider Internal Medicine
DX: Z12.31 Encounter for screening mammogram for malignant neoplasm of breast (principal)
CPT/HCPCS: 77063; 77067

== ENCOUNTER 2023-08-27 17:01 | Outpatient (AMB) | payer OTHER, SELFPAY ==
--- NOTE | 2023-08-27 17:03 | MHC.PC.OV ---
Vital Signs 08/27/23 17:04 Height 5 ft 2 in Weight 158 lb BMI 28.9 BP 132/80 Blood Pressure Location Lt brachial Position Sitting Intake Visit Reasons: left side rib pain Intake Note: Patient here c/o left side rib pain, sinusitis, right hand pain and numbness Insurance Account Representative Required: No Accompanied by: Spouse Allergies oxycodone [Percocet] Allergy (Intermediate, Verified 08/27/23 17:13) rash sulindac Allergy (Intermediate, Verified 08/27/23 17:13) Abdominal Pain tramadol Allergy (Intermediate, Verified 08/27/23 17:13) Abdominal Pain diazepam [From VALIUM] Allergy (Mild, Verified 08/27/23 17:13) HIVES fluoxetine [From PROZAC] Allergy (Mild, Verified 08/27/23 17:13) HIVES Medication List - Last Reconciled 08/27/23 by Vandana Buenrostro MD No Known Home Meds Tobacco use date assessed: 05/28/23 Dental Screening Dental Screen Date: 05/28/23 HPI HPI Comments History of Present Illness Details This is a 53-year-old female with allergic rhinitis and cervical myelopathy that comes accompanied by complaining of left rib pain that started few months ago. Denies any chest pain or shortness of breath. She fell and hit that side before. Complains of bilateral arm numbness and he is not able to do arm elevation over 90 degrees. Will be referred to Ortho. I did prescribe antihistamines for her allergic rhinitis but she will be referred to an continuous process machine operator also. COUNT INCLUDES THE [facility] Medical History (Updated 08/27/23 @ 17:55 by Vandana Buenrostro MD) Cervical myelopathy Syrinx of spinal cord Goiter Polyarthralgia Pure hypercholesterolemia Fibromyalgia Osteoarthritis, hip, bilateral Physical exam Overweight Neck pain Hip pain, bilateral Surgical History Hx of colonoscopy History of esophagogastroduodenoscopy (EGD) H/O skin graft S/P TAMERA (total abdominal hysterectomy) Osteochondroma of femur Family History Father Stroke Mother Diabetes mellitus Social History Housing: Apartment Alcohol intake: never Patient Tobacco Use Status: Never used Tobacco e-Cigarette/Vaping Use: Never Used Second Hand Smoke Exposure: No service: No Current occupational status: unemployed Cognitive needs: No Hearing needs: No Vision needs: No Questionnaire Thrive Questionnaire Date Thrive assessed: 05/28/23 LOREE-7 AMB Questionnaire LOREE-7 Date LOREE - 7 assessed: 05/28/23 Source: Developed by Drs. Pranav Singh, Kiesha Temple, Leon Rodriguez and colleagues, with an educational vijay from [employer]. Review of Systems Const All systems reviewed & are unremarkable except as noted in HPI and below Eyes Reports no additional complaints, Denies change in vision and Denies other visual disturbances Card Denies chest pain at rest, Denies chest pain with activity, Denies edema, Denies irregular heart rhythm, Denies claudication, Denies dyspnea, Denies dyspnea on exertion, Denies orthopnea, Denies paroxysmal nocturnal dyspnea and Denies slow heart rate Resp Denies cough, Denies dyspnea and Denies dyspnea on exertion GI Denies abdominal pain, Denies change in bowel habits, Denies excessive flatus, Denies nausea and Denies vomiting Denies urinary incontinence, Denies urinary hesitancy and Denies urinary urgency Physical exam (Primary Care) Vital Signs: Last Vital Signs BP 132/80 08/27/23 17:04 BMI result Body Mass Index 28.9 Tobacco/Smoking Status: Tobacco use Status Tobacco use date assessed 05/28/23 08/27/23 17:08 Patient Tobacco Use Status Never used Tobacco 08/27/23 17:08 e-Cigarette/Vaping Use Never Used 08/27/23 17:08 Thrive Assessment: Date of Thrive Assessment Date Thrive assessed 05/28/23 08/27/23 17:08 Resp Effort & Inspection: normal respiratory effort Auscultation: clear to auscultation bilaterally Cardio Jugular venous distension: no JVD Rate: regular rate Rhythm: regular rhythm Heart sounds: S1 normal heart sound present and S2 normal heart sound present Extrem Right upper extremity: shoulder/upper arm Details: abnormal ROM Details: held in an abnormal fashion Details: in ABduction and in extension and pain with active ROM Details: in extension Left upper extremity: shoulder/upper arm Details: abnormal ROM Details: held in an abnormal fashion Details: in ABduction and pain with active ROM Details: in extension Assessment and Plan Assessment & Plan (1) Cervical myelopathy: Code(s): G95.9 - Disease of spinal cord, unspecified Plan: Referred to Ortho (2) Allergic rhinitis: Code(s): J30.9 - Allergic rhinitis, unspecified Plan: Start antihistamines. Referred to continuous process machine operator. (3) Rib pain on left side: Code(s): R07.81 - Pleurodynia Plan: X-ray ordered. Orders: Orders XR ribs LT 2V Today R07.81 - Pleurodynia Referrals Orthopedics Referral M48.02 - Spinal stenosis, cervical region Allergy & Immunology Referral J30.9 - Allergic rhinitis, unspecified Medications: New cetirizine (Allergy Relief (cetirizine)) 10 mg PO DAILY 90 days PRN 90 tabs 0RF allergy symptoms Coding Level of Care Code Est Pt Level 3 (18576) Diagnoses Cervical myelopathy G95.9 Allergic rhinitis J30.9 Rib pain on left side R07.81 Time Spent (min) 19
[2023-08-27 17:04] VITALS: BP 132/80; BMI 28.9
== END 2023-08-27 17:29 | disposition home or self-care (01) ==
PROVIDERS: PCP Internal Medicine; Visit Provider Internal Medicine
DX: G95.9 Disease of spinal cord, unspecified (principal); J30.9 Allergic rhinitis, unspecified; R07.81 Pleurodynia
CPT/HCPCS: 99213

== ENCOUNTER 2023-08-29 10:06 | Outpatient (REF) | payer OTHER, SELFPAY ==
--- NOTE | ~2023-08-29 | XR_ITS ---
EXAMINATION: XR RIBS, LEFT CLINICAL INFORMATION: Pleurodynia, fall, pain in left ribs. COMPARISON: Chest of 07/18/2019. TECHNIQUE: 3 views of the left ribs only were obtained. Radiopaque marker placed by technologist to indicate the area of concern as indicated by the patient overlying the lower left ribs. Limited visualization due to bowel gas and body habitus. FINDINGS: S-shaped thoracolumbar scoliosis. No displaced lower left rib fracture, although visualization limited due to overlying soft tissues. XR/XR ribs LT min 3V w CXR1V IMPRESSION: No displaced lower left rib fracture, although visualization limited due to overlying soft tissues. This study was presented today September 17, 2023 for interpretation. Stat results provided at this time as requested by referring provider.
== END 2023-08-29 10:07 | disposition home or self-care (01) ==
LOC: HO.XRAY 10:06
PROVIDERS: PCP Internal Medicine; Visit Provider Internal Medicine
DX: R07.81 Pleurodynia (principal)
CPT/HCPCS: 71101

== ENCOUNTER 2023-10-15 10:21 | Outpatient (REF) | payer OTHER, SELFPAY ==
--- NOTE | ~2023-10-15 | US_ITS ---
EXAMINATION: US THYROID CLINICAL INFORMATION: Prior ultrasound follow up, no prior biopsy. COMPARISON: 10/31/2022 TECHNIQUE: Linear transducer grayscale and color Doppler examination with attention to the region of the thyroid. FINDINGS: SIZE: Measurements of the thyroid lobes and nodules are given in sagittal, anteroposterior and transverse dimensions respectively. Right Thyroid Lobe: 4.0 x 1.6 x 1.8 cm, volume 6.0 mL. Parenchyma: The gland echotexture is homogeneous. Thyroid vascularity is normal. Left Thyroid Lobe: 3.5 x 1.4 x 1.4 cm, volume 3.6 mL. Parenchyma: The gland echotexture is homogeneous. Thyroid vascularity is normal. Isthmus: 0.3 cm in maximum AP dimension. Estimated total number of nodules greater than or equal to 1 cm: 0. [place] Support Worker nodules are described as follows: 1. Location: Right mid pole. Size: 0.4 x 0.3 x 0.4 cm, volume 0.03 mL. Previously 0.4 x 0.2 x 0.3 cm, volume 0.01 mL. Nodule characteristics: Composition: Solid (2). Echogenicity: Hypoechoic (2). Shape: Not taller than wide (0). Margins: Smooth (0). Echogenic Foci: None (0). ACR TI-RADS total points: 4, previously 4 on 10/31/2022. ACR TI-RADS category: 4, previously 4 on 10/31/2022. Significant change in size (>/= 20% in 2 dimensions and minimal increase of 2 mm or 50% or greater increase in volume): No Change in features: No Change in ACR TI-RADS risk category: No NODES: 1.0 x 0.8 x 0.6 cm and 0.8 x 0.8 x 0.7 cm right cervical nodes with borderline cortical thickening and echogenic soledad were not appreciated on the prior exam. US/US thyroid IMPRESSION: 1. A 0.4 cm right TR4 thyroid nodule, previously 0.4 cm. 2. 1.0 x 0.8 x 0.6 cm and 0.8 x 0.8 x 0.7 cm right cervical nodes with borderline cortical thickening and echogenic soledad were not appreciated on the prior exam. ACR TI-RADS RECOMMENDATION REFERENCE: Ultrasound-guided fine-needle aspiration, followup ultrasound, no further follow up. * TR1 (0 point) and TR2 (2 points): No FNA or follow up. * TR3 (3 points): FNA if more than or equal to 2.5 cm in maximum dimension, followup ultrasound in 1, 3 and 5 years if 1.5 to 2.4 cm in maximum dimension. * TR4 (4-6 points): FNA if more than or equal to 1.5 cm in maximum dimension, followup ultrasound in 1, 2, 3 and 5 years if 1 to 1.4 cm in maximum dimension. * TR5 (more than or equal to 7 points): FNA if more than or equal to 1 cm in maximum dimension, followup ultrasound every year for 5 years if 0.5 to 0.9 cm in maximum dimension. * TR3, TR4 or TR5 nodules that are below the size threshold for followup receive no follow up.
== END 2023-10-15 10:22 | disposition home or self-care (01) ==
LOC: HO.US 10:21
PROVIDERS: PCP Internal Medicine; Visit Provider Internal Medicine
DX: E04.1 Nontoxic single thyroid nodule (principal)
CPT/HCPCS: 76536

== ENCOUNTER 2024-01-31 12:35 | Outpatient (REF) | payer OTHER, SELFPAY | END 2024-01-31 12:36 | disposition home or self-care (01) | LOC: HO.US 12:35 | PROVIDERS: PCP Internal Medicine; Visit Provider Internal Medicine | DX: R59.0 Localized enlarged lymph nodes (principal) | CPT/HCPCS: 76536 ==

== ENCOUNTER 2024-05-29 07:25 | Outpatient (AMB) | payer OTHER, SELFPAY ==
[2024-05-29 07:30] VITALS: BP 134/80; PULSE 66; O2SAT 98; BMI 29.3
--- NOTE | 2024-05-29 07:30 | A.OFFPC_ITS ---
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 Required: No Accompanied by: Self / Same As Patient Allergies oxycodone [Percocet] Allergy (Intermediate, Verified 05/29/24 07:43) rash sulindac Allergy (Intermediate, Verified 05/29/24 07:43) Abdominal Pain tramadol Allergy (Intermediate, Verified 05/29/24 07:43) Abdominal Pain diazepam [From VALIUM] Allergy (Mild, Verified 05/29/24 07:43) HIVES fluoxetine [From PROZAC] Allergy (Mild, Verified 05/29/24 07:43) HIVES Medication List - Last Reconciled 05/29/24 by Vandana Buenrostro MD cetirizine (Allergy Relief (cetirizine)) 10 mg PO DAILY PRN 90 days trazodone 50 mg PO BEDTIME PRN 7 days Tobacco use date assessed: 05/29/24 Dental Screening Dental Screen Date: 05/29/24 Did you have a dental visit in the last 12 months?: Yes Did you have a dental problem in the last 6 months where you did not have access to dental care?: No Was dental information given to patient?: Patient has dentist HPI HPI Comments History of Present Illness Details The patient is a 54-year-old female presenting for her physical exam. She also has multiple medical concerns, primarily cervical spine issues and headaches. She has a history of being referred to a specialist for possible cervical spine surgery due to cervical myelopathy, which was subsequently not performed. The patient has experienced persistent neck pain, daily headaches, and intermittent numbness in her arms and legs. Previous attempts at surgical intervention were halted, and referral to [facility] was made without follow-up. She reports minimal depression and sleeps poorly, occasionally using natural supplements to aid in sleep. Her migraines are suspected to be related to cervical spine issues. Additionally, the patient has a known allergy to several medications, including Percocet, Zulindac, Tramadol, Diazepam, and Fluoxetine. She has a history of hysterectomy for fibroids and an osteochondroma removal from the femur. Osteoporosis was ruled out last year with a normal bone densitometry. Her father had a stroke and her mother is living with diabetes. - Colonoscopy performed in 2021, results noted hemorrhoids - Bone densitometry performed in 2023, n ormal results - Mammography scheduled for August - Thyroid ultrasound to be repeated in J jhoana - Blood work to include cholesterol leve ls to be done fasting - Patient does not smoke or consume alco hol - Consideration of tetanus vaccination d iscussed - Tdap vaccine done today PFSH Medical History (Updated 05/29/24 @ 10:01 by Vandana Buenrostro MD) Cervical myelopathy Syrinx of spinal cord Goiter Polyarthralgia Pure hypercholesterolemia Fibromyalgia Osteoarthritis, hip, bilateral Physical exam Overweight Neck pain Hip pain, bilateral Surgical History Hx of colonoscopy History of esophagogastroduodenoscopy (EGD) H/O skin graft S/P TAMERA (total abdominal hysterectomy) Osteochondroma of femur Family History Father Stroke Mother Diabetes mellitus Social History Housing: Apartment Alcohol intake: never Patient Tobacco Use Status: Never used Tobacco Tobacco use type: Cigarette e-Cigarette/Vaping Use: Never Used Second Hand Smoke Exposure: No service: No Current occupational status: unemployed Cognitive needs: No Hearing needs: No Vision needs: No Questionnaire PHQ-9 Over the last 2 weeks, how often have you been bothered by any of the following problems? 1. Little interest or pleasure in doing things: not at all 2. Feeling down, depressed, or hopeless: not at all 3. Trouble falling or staying asleep, or sleeping too much: several days 4. Feeling tired or having little energy: not at all 5. Poor appetite or overeating: several days 6. Feeling bad about yourself - or that you are a failure or have let yourself or your family down: not at all 7. Trouble concentrating on things, such as reading the newspaper or watching television: not at all 8. Moving or speaking so slowly that other people could have noticed. Or the opposite - being so fidgety or restless that you have been moving around a lot more than usual: not at all 9. Thoughts that you would be better off or of hurting yourself in some way: not at all Total score: 2 Depression Screening Interpretation: Positive Depression Screening Follow-up: Existing condition, In treatment and Follow-up Visit Requested Depression Screening Done: Yes 86117 - PHQ-9 Billing: Yes Source: Developed by Drs. Pranav Singh, Kiesha Temple, Leon Rodriguez and colleagues, with an educational vijay from [employer]. Thrive Questionnaire Date Thrive assessed: 05/29/24 I am a: Patient What is your living situation today?: I have a steady place to live Within the past 12 months, did the food you bought not last and you didn't have the money to get more?: Never true Within the past 12 months, did you worry whether your food would run out before you got money to buy more?: Never true Do you have trouble paying for medicines?: No Do you have trouble getting transportation to medical appointments?: No Do you have trouble paying your heating and electricity bill?: No Do you have trouble taking care of your child, family member or friend?: No Do you have trouble with day-to-day activities such as bathing, preparing meals, shopping, managing finances, etc.?: No Are you currently unemployed and looking for a job?: No Are you interested in more education?: No Currently or been in a relationship where the following occur: No concerns reported THRIVE Score: 0 AUDIT C Alcohol Use Questionnaire (AUDIT-C) 1. How often do you have a drink containing alcohol?: Never 3. How often do you have six or more drinks on one occasion?: Never Total Score: 0 Score Reviewed/Action Taken: No LOREE-7 AMB Questionnaire LOREE-7 Date LOREE - 7 assessed: 05/29/24 Feeling nervous, anxious, or on edge: 1 = Several days Not being able to stop or control worryin = Several days Worrying too much about different things: 1 = Several days Trouble relaxin = Several days Being so restless that it is hard to sit still: 0 = Not at all Becoming easily annoyed or irritable: 1 = Several days Feeling afraid as if something awful might happen: 0 = Not at all Total LOREE-7 score (0-4 normal; 5-9 mild; 10-14 moderate; 15-21 severe): 5 Source: Developed by Drs. Pranav Singh, Kiesha Temple, Leon Rodriguez and colleagues, with an educational vijay from [employer]. LOREE-7 Assessment Billing LOREE-7 Assessment Tool: LOREE-7 Assessment 77698 Review of Systems Const All systems reviewed & are unremarkable except as noted in HPI and below ENT Reports neck pain Card Denies chest pain at rest, Denies chest pain with activity, Denies edema, Denies irregular heart rhythm, Denies claudication, Denies dyspnea, Denies dyspnea on exertion, Denies orthopnea, Denies paroxysmal nocturnal dyspnea and Denies slow heart rate Resp Denies cough, Denies dyspnea and Denies dyspnea on exertion GI Denies abdominal pain, Denies change in bowel habits, Denies excessive flatus, Denies nausea and Denies vomiting Denies urinary incontinence, Denies urinary hesitancy and Denies urinary urgency Musc Denies abnormal gait, Reports back pain, Denies atrophy, Denies deformity, Denies limited range of motion, Reports muscle weakness, Reports neck pain, Reports numbness, Reports radiating pain into limb and Reports tingling Skin/Breast Denies bleeding lesions, Denies changing lesions and Denies rash Neuro Denies abnormal gait, Denies behavioral changes, Denies lack of coordination, Reports numbness and Reports tingling Psych Denies behavioral changes Physical exam (Primary Care) Vital Signs: Last Vital Signs Pulse 66 05/29/24 07:30 BP 134/80 05/29/24 07:30 Pulse Ox 98 05/29/24 07:30 Oxygen Delivery Method Room Air 05/29/24 07:30 BMI result Body Mass Index 29.3 Tobacco/Smoking Status: Tobacco use Status Tobacco use date assessed 05/29/24 05/29/24 07:37 Patient Tobacco Use Status Never used Tobacco 05/29/24 07:37 Tobacco use type Cigarette 05/29/24 07:37 e-Cigarette/Vaping Use Never Used 05/29/24 07:37 PHQ-9: PHQ-9 Score PHQ-9: Total score 2 05/29/24 08:05 Depression Screening Interpretation: Positive Depression Screening Follow-up: Existing condition, In treatment and Follow-up Visit Requested Thrive Assessment: Date of Thrive Assessment Date Thrive assessed 05/29/24 05/29/24 07:37 Currently or been in a relationship where the following occur: No concerns reported Const General: cooperative HENMT Head: Yes normal to inspection, Yes normocephalic and Yes atraumatic Ears: external ears normal Eyes General: appearance normal, both eyes and all related structures Eyelids: Yes eyelids normal Conjunctivae: conjunctivae normal Neck Neck: Yes normal visual inspection and Yes supple Thyroid: solitary palpable nodule Lymphatic: lymphadenopathy Resp Effort & Inspection: normal respiratory effort Auscultation: clear to auscultation bilaterally Cardio Jugular venous distension: no JVD Rate: regular rate Rhythm: regular rhythm Heart sounds: S1 normal heart sound present and S2 normal heart sound present GI Inspection: Yes normal to inspection Palpation (GI): Soft to palpation and nontender Auscultation: normal bowel sounds Skin General skin exam: no rashes or lesions noted Neuro General: no focal motor deficits Extrem General: Yes full ROM Psych Appearance: grossly normal Immunizations Boostrix Tdap 2.5 Lf unit-8 mcg-5 Lf/0.5 mL intramuscular syringe Performing Provider: Vandana Buenrostro MD [facility] Administered by: Deb Butts CMA on 05/29/24 08:05 Dose Route Admin Location Dispensed Lot Number Expiration Date [facility] Metalworking Instructor 0.5 mL IM Left Deltoid 0.5 mL [id number] 06/28/26 [id number] StevieINE VIS Given Date VIS Provided VIS Publication Date 05/29/24 Single Vaccine 20 Eligibility Eligibility Date Funding Source Not [facility] Eligible 05/29/24 Private Coding Level of Care Code Est Pt Level 4 (68390) Est Pt Prev Care 40-64y(38291) Diagnoses Physical exam Z00.00 Cervical myelopathy G95.9 Thyroid nodule E04.1 Cervical lymphadenopathy R59.0 Primary insomnia F51.01 Insomnia type: primary Additional Codes LOREE-7 Assessment Billing - LOREE-7 Assessment Tool: LOREE-7 Assessment 19166 ([id number]) PHQ-9 - 80766 - PHQ-9 Billing: Yes ([id number]) Time Spent (min) 38 Assessment & Plan Assessment & Plan (1) Physical exam: Code(s): Z00.00 - Encounter for general adult medical examination without abnormal findings Category: Medical (2) Cervical myelopathy: Code(s): G95.9 - Disease of spinal cord, unspecified Category: Medical (3) Thyroid nodule: Code(s): E04.1 - Nontoxic single thyroid nodule Category: Medical (4) Cervical lymphadenopathy: Code(s): R59.0 - Localized enlarged lymph nodes Category: Medical (5) Insomnia: Code(s): G47.00 - Insomnia, unspecified Category: Medical Qualifiers: Insomnia type: primary Qualified Code(s): F51.01 - Primary insomnia Plan - Consider medication to improve sleep and assist with weight management, while monitoring for side effects such as limb tingling. - Conduct follow-up thyroid ultrasound in October to evaluate nodules. - Facilitate [facility] referral for cervical nuisance wildlife specialist for unresolved neck pain and neurological symptoms. - Continue with current natural sleep aids; monitor depression. - Encourage completion of upcoming mammography. - Perform fasting blood work to monitor cholesterol levels. Patient was informed and verbally consented to the use of an ambient scribe for clinic note documentation during this visit. I have discussed with the patient the importance of ongoing monitoring of her cervical spine issues, including a potential future referral to [facility] if symptoms persist. We have talked about the side effects and benefits of potential sleep and weight management medications, including their effects on headaches and depression. I have explained the possible need for further cervical treatment and the current limitation of surgical options locally. The significance of follow-up thyroid evaluation and mammography screening was reviewed. I emphasized the necessity of regular labs to monitor cholesterol and encouraged ongoing healthy lifestyle practices. Orders: Orders Comprehensive [place]. Panel Fast Today Z00.00 - Encounter for general adult medical examination without abnormal findings Lipid Panel Today Z00.00 - Encounter for general adult medical examination without abnormal findings TDaP Immunization Today Z23 - Encounter for immunization US thyroid 5 Months E04.1 - Nontoxic single thyroid nodule Medications: Discontinued trazodone Discontinued Reason: Patient Completed Course 50 mg PO BEDTIME 7 days PRN 7 tabs 0RF sleep Patient Instructions: - Schedule and attend the thyroid ultrasound in October. - Complete the lab work for cholesterol soon, ensuring fasting state. - Continue using current natural sleep aids as needed. - Schedule and undergo mammography in August. - Maintain regular walking for exercise, monitor weight, and be mindful of dietary choices. - Stay informed about the status of the [facility] referral and contact my office if further assistance is required. - Follow up if experiencing worsening symptoms or side effects from any medications.
== END 2024-05-29 08:10 | disposition home or self-care (01) ==
PROVIDERS: PCP Internal Medicine; Visit Provider Internal Medicine
DX: Z00.00 Encounter for general adult medical examination without abnormal findings (principal); G95.9 Disease of spinal cord, unspecified; E04.1 Nontoxic single thyroid nodule; R59.0 Localized enlarged lymph nodes; F51.01 Primary insomnia; Z23 Encounter for immunization

== ENCOUNTER 2024-05-29 07:25 | Outpatient (REF) | payer OTHER, SELFPAY ==
[2024-05-29 09:17] LABS: Alanine Aminotransferase 23 U/L (0-31); Albumin Level 4.2 g/dL (3.5-5.0); Alkaline Phosphatase 96 U/L (39-117); Anion Gap 11 (12-20); Aspartate Amino Transferase 19 U/L (5-31); Bilirubin Total 0.3 mg/dL (0.0-1.0); Blood Urea Nitrogen 10 mg/dL (9-16); Carbon Dioxide 29 mmol/L (22-29); Chloride 105 mmol/L (96-108); Cholesterol 226 mg/dL (<200); Estimated Glomerular Filt Rate > 60; Glucose Fasting 103 mg/dL (60-99); HDL Cholesterol 62 mg/dL (>40); LDL Cholesterol Calculated 142 mg/dL (<100); Potassium 3.7 mmol/L (3.3-5.1); Sodium 141 mmol/L (135-145); Total Protein 7.8 g/dL (6.5-8.0); Triglycerides 114 mg/dL (<150)
== END 2024-05-29 07:26 | disposition home or self-care (01) ==
LOC: HO.LAB 07:25
PROVIDERS: PCP Internal Medicine; Visit Provider Internal Medicine
DX: Z00.00 Encounter for general adult medical examination without abnormal findings (principal); Z23 Encounter for immunization; G95.9 Disease of spinal cord, unspecified; E04.1 Nontoxic single thyroid nodule; R59.0 Localized enlarged lymph nodes; F51.01 Primary insomnia
CPT/HCPCS: 36415; 80053; 80061; 90471; 90715; 96127

== ENCOUNTER 2024-06-24 12:45 | Outpatient (REF) | payer OTHER, SELFPAY ==
--- NOTE | ~2024-06-24 | US_ITS ---
EXAMINATION: US SOFT TISSUE HEAD AND NECK. LIMITED. CLINICAL INFORMATION: Enlarged lymph nodes, right submandibular.. COMPARISON: January 31, 2024. TECHNIQUE: Linear transducer enriquez-scale and color Doppler examination with attention to the region submandibular compartment. FINDINGS: There is a 3 lymph nodes with fatty hilum in the right submandibular compartment, largest measures 1.6 cm. No masses or fluid collections. US/US soft tiss head and/or neck IMPRESSION: Nonspecific less than 1.6 cm lymph nodes, right submandibular compartment.. Electronically signed by: Pavel Rivera MD 06/25/2024 07:18 AM EDT
--- OUTSIDE RECORDS SUMMARY | 2024-06-24 14:56 | XMS_ITS | Clinical Summary ---
Author Organization [facility] Address [address] [address] Phone Care Team Providers Care Continuous Improvement Black Belt Name Role Phone Vandana Bragg MD Primary Care Provid er Allergies Active Allergy Reactions Criticality Noted Date Comments Diazepam 01/02/2024 Fluoxetine 01/02/2024 Tramadol Hives 01/02/2024 Medications No known medications Active Problems Problem Noted Date Diagnosed Date Nontoxic uninodular goiter 01/02/2024 Assessment & Plan (01/02/2024 2:20 PM EDT): I suspect that this patient has a nontoxic uninodular goiter. However I do not have TSH to confirm. She does not know how she was initially diagnosed with thyroid nodules or thyroid goiter. She did have apparently an ultrasound November 2021 at [facility]. I do not have the size of the nodule. This nodule has not been biopsied. She is due to repeat the study in January 2024. I have requested the initial ultrasound and I discussed with the patient that she should try to bring in a copy of the January report or at least have her primary care send us a fax with this report. In the meantime what I will do is obtain thyroid function studies check TPO and thyroglobulin antibodies that she can do today and I will give her a follow- up appointment in 3 months. Family History Medical History Relation Comments Stroke Father Diabetes Mother Relation Status Comments Father Mother Alive Social History Tobacco Use Types Packs/Day Years Used Date Smoking Tobacco: Never Smokeless Tobacco: Never Tobacco Cessation:Counseling Given: Not Answered Alcohol Use Standard Drinks/Week Comments Never 0 (1 standard drink = 0.6 oz pur e alcohol) Education Answer Date Recorded Are you interested in more education? Not on gillian e 10/02/2023 Are you concerned about learning? Not on file 10/02/2023 No 10/02/2023 No 10/02/2023 Digital Access Answer Date Recorded No 10/02/2023 No 10/02/2023 Reliable internet access at home? Not on file 10/02/2023 Device with a working camera? Not on file Sex and Gender Information Value Date Recorded Sex Assigned at Not on file Gender Identity Not on file Sexual Orientation Not on file Last Filed Vital Signs Vital Sign Reading Time Taken Comments Blood Pressure 122/68 01/02/2024 1:44 PM EDT Pulse 64 01/02/2024 1:44 PM EDT Temperature - - Respiratory Rate - - Oxygen Saturation 99% 01/02/2024 1:44 PM EDT Inhaled Oxygen Concentration - - Weight 71.6 kg (157 lb 12.8 oz) 01/02/2024 1:44 PM EDT Height 154.9 cm (5' 1 ) 01/02/2024 1:44 PM EDT Body Mass Index 29.82 01/02/2024 1:44 PM EDT Plan of Treatment Health Maintenance Due Date Last Done Comments Adult Td,Tdap Booster 1969 LIPID PANEL 1969 DEPRESSION SCREENING 1981 HEPATITIS B SCREENING 1987 HEPATITIS C SCREENING 1987 HIV ONE-TIME SCREENING (18-6 5 YEARS) 1987 HEPATITIS B VACCINES (1 of 3 - 19+ 3-dose series) 1988 SCREENING FOR DIABETES 2004 MAMMOGRAM 2009 COLOGUARD 2014 COLONOSCOPY 2014 COLORECTAL CANCER SCREENING 2014 FIT TEST 2014 FOBT 2014 SIGMOIDOSCOPY 2014 VIRTUAL COLONOSCOPY 2014 PNEUMOCOCCAL VACCINES (50+ y ears) (1 of 1 - PCV) 2019 ZOSTER VACCINES (1 of 2) 2019 INFLUENZA VACCINE (#1) 2023 COVID-19 VACCINE (2023-2 5 season) 2023 SMOKING STATUS SCREENING (On ce After 26 Yrs) Completed 01/02/2024 HEPATITIS A VACCINES Aged Out No long er eligible based on patient's age to complete this topic HIB VACCINES Aged Out No longer eligi ble based on patient's age to complete this topic MENINGOCOCCAL VACCINES (ACWY) Aged Out No longer eligible based on patient's age to complete this topic Medical Devices Not on file Care Teams Continuous Improvement Black Belt Relationship Specialty Start Date End Date Vandana Bragg MD [address] [place] [address] PCP - General Internal Medicine 11/14/22 Additional Source Comments The information contained in this document represents components of the legal health record. It is not the complete legal health record.[facility]
== END 2024-06-24 12:46 | disposition home or self-care (01) ==
LOC: HO.US 12:45
PROVIDERS: PCP Internal Medicine; Visit Provider Internal Medicine
DX: R59.0 Localized enlarged lymph nodes (principal)
CPT/HCPCS: 76536

== ENCOUNTER → 2024-06-24 12:47 | Outpatient (BNV) | payer OTHER, SELFPAY | PROVIDERS: PCP Internal Medicine; Visit Provider Radiology Diagnostic Radiology | DX: R59.0 Localized enlarged lymph nodes (principal) | CPT/HCPCS: 76536 ==

== ENCOUNTER 2024-07-09 08:58 | Outpatient (AMB) | payer OTHER, SELFPAY ==
--- NOTE | 2024-07-09 09:01 | MHC.OFFVIS ---
Intake Visit Reasons: Localized enlarged lymph nodes Intake Note: Patient referred by pcp Dr. Jeff Buenrostro for enlarged lymph nodes. Patient c/o: throat pain, food feels like it gets stuck. At times nodules feel swollen. Head and Neck US: 06-24-2024. 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 Patient was nonspecific neck complaints. She has had extensive workup for this including multiple ultrasounds, CT scan of the neck, and thyroid scans. She denies any fever, chills, night sweats, weight loss. She has no other masses or lesions elsewhere. Chart was reviewed and patient evaluated [facility] Medical History Cervical myelopathy Syrinx of spinal cord Goiter Polyarthralgia Pure hypercholesterolemia Fibromyalgia Osteoarthritis, hip, bilateral Physical exam Overweight Neck pain Hip pain, bilateral Surgical History (Updated 07/09/24 @ 09:17 by Guzman Persaud MD) Hx of colonoscopy History of esophagogastroduodenoscopy (EGD) H/O skin graft S/P TAMERA (total abdominal hysterectomy) Osteochondroma of femur Family History Father Stroke Mother Diabetes mellitus Social History Housing: Apartment Alcohol intake: never Patient Tobacco Use Status: Never used Tobacco Tobacco use type: Cigarette e-Cigarette/Vaping Use: Never Used Second Hand Smoke Exposure: No service: No Current occupational status: unemployed Cognitive needs: No Hearing needs: No Vision needs: No Physical Exam HEENT Other: Shotty bilateral lymphadenopathy but no large distinct masses demonstrated. No obvious periclavicular, axillary or groin adenopathy demonstrated. Chest Other: Chest sounds bilaterally, HS 1 in 2 GI Other: Abdomen is soft, benign Assessment & Plan Assessment & Plan (1) Cervical lymphadenopathy: Code(s): R59.0 - Localized enlarged lymph nodes Category: Surgical Plan: Therapeutic options were reviewed with the patient which include repeat neck ultrasound in 6 months time or consideration for ultrasound-guided biopsy of the 1 large right cervical lymph node. Patient was operative for the latter. Arrangements were made for this. She will see me after the study. All questions answered. Orders: Orders US guided fine needle asp Today R59.0 - Localized enlarged lymph nodes Coding Level of Care Code New Pt Level 4 (14984) Diagnoses Cervical lymphadenopathy R59.0
--- OUTSIDE RECORDS SUMMARY | 2024-07-09 09:45 | XMS_ITS | Data Portability ---
Author Organization [place] - [facility], [facility] Address [address] [place] [address] Care Team Providers Care Solar Thermal Installer Name Role Phone PIPER GEIGER Primary Care Provider [phone] Assessment No assessment recorded. Plan of Treatment Reminders Order Date Submit Date Provider Last Modified By Organization Details Last Modified Time Details Appointments None recorded. Lab vitamin D panel, serum or plasma 2023 [place] 14 [facility] (Centralized Electronic Ordering - All Locations), Patient Can Go To The Location Of Their Choice, [address] 4 16:17:56 Referral None recorded. Procedures None recorded. Surgeries None recorded. Imaging XR, cervical spine, 2 or 3 view - 324. 2 views of C-spine 2023 024 [email or web address] [facility], [address], [address], [place], [address], 4 09:32:23 MRI, cervical spine, w/o contrast - Eval:?cervi emmy myelopathy 2023 024 [facility] ([facility]), [address], [place], [address], 4 09:32:23 Medication Orders None recorded. Patient TargetsNo targets recorded. Patient InstructionsNo instructions recorded. Reason for Referral None Reported. Results Created Date Observation Date Name Description Value Unit Range Abnormal Flag Note LastModifiedBy Organization Detail LastModifiedTime 01/08/20 24 01/09/2024 VITAM IN D, 25-HY DROXY vitamin D, 25-hydroxy 21.0 NG/mL 30.0-1 00.0 below low normal Vitam in D defic iency has been defin ed by the Insti tute of Medic ine and an Endoc rine Socie ty pract ice guide line as a level of serum 25-OH vitam in D less than 20 ng/mL (1,2) . The Endoc rine Socie ty went on to furth er defin e vitam in D insuf ficie ncy as a level betwe en 21 and 29 ng/mL (2). 1. IOM (Inst itute of Medic ine). 2010. Dieta ry refer ence intak es for calci um and D. Emanuel martinez [place]: The [facility] Press . 2. Edgar jeter MF, Luly donovan [place], Sierra off-F dee dee i BLACKMON, et al. Evalu ation , treat ment, and preve ntion of vitam in D defic iency : an Endoc rine Socie ty clini emmy pract ice guide line. JCEM. 2010; 96(7) :1911 -30. Not Available [facility] ([facility]) [address] [facility], [place], [address], 01/09/2024 06:05:20 11/21/19 24 11/21/2023 XR, cervi emmy spine , 2 or 3 view http:/ [email or web address] ?Encry pted=s hAaTro YD8dLq bEUv6g %2BXZw aYqtaq 0bqfl% 2Fg9IQ a4ajBk vP9nXo QUaueC m3YtLR FvZlgJ JJ8mAn HZtai3 6z3968 AC0KoY 3yHUqv eUC8mr 84%3D INTERFACE [facility] [address] [facility] [address], [place], [address], 11/21/2023 14:54:50 11/21/19 24 11/21/2023 XR, cervi emmy spine , 2 or 3 view http:/ [email or web address] ?Encry pted=s hAaTro YD8dLq bEUv6g %2BXZw aYqtaq 0bqfl% 2Fg9IQ a4ajBk vP9nXo QUaueC m3YtLR FvZl JJ8mAn HZtai3 2q1815 AC0KoY 3yHUqv eUC8mr 84%3D INTERFACE [facility] [address], [place], [address], 11/21/2023 14:54:52 11/24/19 24 11/21/2023 XR, cervi emmy spine , 2 or 3 view http:/ [email or web address] ?Encry pted=s hAaTro YD8dLq bEUv6g %2BXZw aYqtaq 0bqfl% 2Fg9IQ a4ajBk vP9nXo QUaueC m3YtLR FvZlg JJ8[place] HZtai3 7k8434 AC0KoY 3yHUqv eUC8mr 84%3D INTERFACE [facility] [address], [place], [address], 11/24/2023 11:29:51 11/24/19 24 11/21/2023 XR, cervi emmy spine , 2 or 3 view http:/ [email or web address] ?Encry pted=s hAaTro YD8dLq bEUv6g %2BXZw aYqtaq 0bqfl% 2Fg9IQ a4ajBk vP9nXo QUaueC m3YtLR FvZl J8[place] HZtai3 6o8806 AC0KoY 3yHUqv eUC8mr 84%3D INTERFACE [facility] [address], [place], [address], 11/24/2023 11:29:52 12/08/19 24 02/16/2021 imagi ng/di agnos tic resul t No observ ation record ed. [email or web address] Not Available 11/09 11:04:56 12/08/1912/22/2020 imagi ng/di agnos tic resul t No observ ation record ed. [email or web address] Not Available 11/09 11:05:05 12/13/19 24 12/12/2023 MRI, cervi emmy spine , w/o contr ast Shield s MRI at [facility], [facility] Access ion Number : [id number]omino Name: Valentín New na Medica l Record Number : [id number] Date of : 1970 Date of Exam: 2023 Referr ing Physic markell: Jono stephens , Aiden blackmon NEOS [address], [address] [facility] , [place] [address] Exam: MR Cervic al Spine (C-) CPT 50146 Room Descri ption: [facility] 1.5 HISTOR Y: Neck pain and arm pain. COMPAR MANDA: MRI, 2020. FINDIN GS: ALIGNM ENT, VERTEB MARILUZ, MARROW , AND DISCS: Verteb ral body height , curvat ure, and alignm ent are normal . There is no signif icant disc space narrow ing and anteri or osteop hytes are seen at C5-6 and C6-7. Bone marrow signal is normal . SCIENTIFIC INFORMATICS LEADER IOR FOSSA AND CORD: The visual ized roofing sales representative ior fossa and cervic omedul courtney juncti on are normal . There is a small syrinx within the cord extend ing from lower C5 to upper T1. This measur es up to [address] transv erse dimens ion, unchan ged. PARASP INAL TISSUE S: Surrou nding cervic al soft tissue s are normal . Flow voids are preser nik in the domina nt cervic al vessel s. DETAIL ED FINDIN GS BY LEVEL: C2-C3: There is no signif icant canal or neural forami nal stenos is. C3-C4: Both the left parace ntral disc osteop hyte causes modera te narrow ing of the left half of the spinal canal with mild flatte leighton of the ventra l cord. No myelop athic signal abnorm ality is seen. This result s in crowdi ng of the exitin g left C4 nerve root as well as severe narrow ing the left neural forame n. C4-C5: There is no signif icant canal stenos is. There is mild narrow ing of the left neural forame n from facet spurri ng. C5-C6: There is minima l disc osteop hyte withou t canal stenos is. There is modera te narrow ing of the neural forame n from uncove rtebra l spurri ng, slight ly worse than prior. C6-C7: There is disc osteop hyte asymme tric to the left withou t signif icant canal stenos is. There is severe narrow ing of the right neural forame n from uncove rtebra l spurri ng, worse than prior. C7-T1: There is no signif icant canal or neural forami nal stenos is. IMPRES ALYSE: 1. Again noted is bulky left parace ntral disc osteop hyte at C3-4 causin g mild flatte leighton of the left ventra l cord withou t myelop athic signal abnorm ality. There is also crowdi ng of the exitin g left C4 nerve root with severe narrow ing of the left neural forame n. 2. Right- sided neural forami nal stenos is at C5-6 and C6-7 is slight ly worse than 2020, with severe narrow ing at the latter level. 3. Other mild degene rative change s are stable , as is a tiny syrinx in the cervic al thorac ic cord. Electr onical ly Signed By: Jonelle sheehan MD [address] ([facility]) [address] [place], [address], 12/18/2023 11:18:39 Result Notes None recorded. Problems Name Problem SNOMED Code Status Onset Date Resolution Date Notes Provider Name and Address Organization Details Recorded Time Cervical myelopathy 796278637 Active 2023 Vladimir Payne MD [address], [place], [address], [place] - [facility] 4 14:14:53 Spinal stenosis in cervical region 14803047 Active 2023 MD Susan Thomas [address], [place], [address], [place] - [facility] 13:33:33 Intervertebral disc disorder of cervical region with myelopathy 31463576 Active 2023 Vladimir Payne MD [address], [place], [address], [facility] 13:33:34 Problem Notes None recorded. Procedures Surgical History None recorded. Imaging Results Imaging Date Name Status LastModified by Organiz ation Details LastModified Time 11/21/2023 XR, cervical spine, 2 or 3 view completed INTERFACE [facility] [address], [place], [address], 11/21/2023 14:54:50 11/21/2023 XR, cervical spine, 2 or 3 view completed INTERFACE [facility] [address], [place], [address], 11/21/2023 14:54:52 11/21/2023 XR, cervical spine, 2 or 3 view completed INTERFACE [email or web address] [address], [place], [address], 11/24/2023 11:29:51 11/21/2023 XR, cervical spine, 2 or 3 view completed INTERFACE [email or web address] [address], [place], [address], 11/24/2023 11:29:52 02/16/2021 imaging/diagn ostic result completed Information not available 12/08/2023 11:04:56 12/22/2020 imaging/diagn ostic result completed Information not available 12/08/2023 11:05:05 12/12/2023 MRI, cervical spine, w/o contrast completed [address] ([facility]) [address] [place], [address], 12/18/2023 11:18:39 Procedure Notes None recorded. Medical Equipment None Reported. Allergies Allergen ID Allergen Name Allergen Category Reaction Reaction Severity Criticality Documentation Date Start Date Code Code System Note Provider Name and Address Organization Details Recorded Time 581877 latex environme nt,medica tion Not available Not available Not available 01/08/2024 87840 91 RxNorm ABDIEL COLONDENIA griffith [facility] 09:06:08 297348 Valium medicatio n Not available Not available Not available 01/08/202411124 2 RxNorm ABDIEL GRETCHENDENIA [facility] 09:06:14 93463 tramadol hydrochlo ride medicatio n Not available Not available Not available 06/11/20232020 65264 RxNorm ABDIEL COLONDENIA [facility] 09:06:02 Medications Name Sig Start Date Stop Date Status Note LastModified by Organization Details LastModified Time trazodone 50 mg tablet 11/20 completed Not Available Not Available Not Available cetirizine 10 mg tablet TAKE 1 TABLET BY MOUTH EVERY DAY NEEDED FOR ALLERGY SYMPTOMS 01/07 completed Not Available Not Available Not Available tramadol 50 mg tablet TAKE 1 TABLET BY MOUTH EVERY 8 HOURS NEEDED FOR PAIN 11/20 completed Not Available Not Available Not Available amoxicillin 875 mg-potassiu m clavulanate 125 mg tablet TAKE 1 TAB ORALLY 2 TIMES A DAY FOR 10 DAYS 11/20 completed Not Available Not Available Not Available Aleve active Not Available Not Availa ble Not Available Vitals Date Recorded Body weight Body mass index (BMI) Body height Provider Name and Address Organization Details Last Updated DateTime 11/21/2023 29157.86 g 27.4 kg/m2 157.48 cm Melinda Carey [facility] 11/21/2023 14:39:34 Date Recorded Body height Body mass index (BMI) Body weight Provider Name and Address Organization Details Last Updated DateTime 12/06/2023 157.48 cm 27.4 kg/m2 22097.86 g NEMO ESCOBAR [facility] 12/06/2023 10:28:59 Date Recorded Body height Body mass index (BMI) Body weight Provider Name and Address Organization Details Last Updated DateTime 01/08/2024 154.94 cm 28.3 kg/m2 69032.86 g ABDIEL GODINEZ [facility] 01/08/2024 09:05:58 Date Recorded Body height Body mass index (BMI) Body weight Provider Name and Address Organization Details Last Updated DateTime 02/05/2024 154.94 cm 28.3 kg/m2 04800.86 g Jonathan Walker [facility] 02/05/2024 11:42:26 Social History None recorded. Functional Status None recorded. Mental Status None recorded. Family History Nothing Reported. Medical History No medical history recorded. Gynecological HistoryNo gynecological history recorded. Obstetrics History GPAL:G 0 P 0 0 0 0 Past Encounters Encounter ID Performer Location Encounter Start Date Encounter Closed Date Diagnosis/Indication Diagnosis SNOMED-CT Code Diagnosis ICD10 Code Diagnosis Note [id number] Nishi charles PA-C [place] [address] [place] [address] 11/21/2023 14:21:05 12/14/2023 09:32:23 Neck pain 64461477 M54.2 Radiculopa thy due to cervical spondylosis 4268608667 M47.22 Myelopathy due to cervical spondylosis 6530477267 M47.12 [id number] Vladimir Payne MD [place] [address] [place] [address] 12/06/2023 09:51:02 12/28/2023 08:15:36 Cervical myelopathy 552363651 G95.9 [id number] Vladimir Payne MD [place] [address] [place] [address] 01/08/2024 08:49:42 01/23/2024 12:15:01 Pre-surgery testing 192399504 Z01.89 Interverte bral disc disorder of cervical region with myelopathy 86644453 M50.00 Spinal [place] nosis in cervical region 88056343 M48.02 [id number] Vladimir Payne MD [place] [address] [place] [address] 02/05/2024 10:53:53 02/25/2024 13:33:20 Intervertebral disc disorder of cervical region with myelopathy 32492755 M50.00 Health Concerns Section Related Observation LastModified by Organization Detai ls LastModified Time None Recorded Concern Status LastModified by Organization Details LastModified Time None Recorded Advance Directives Directive None Recorded Payers Encounter Date Sequence Insurance Name Policy Number Policy Remy Covered Member ID Remy Member ID Guarantor Name 11/21/2023 1 [facility] [place] [facility] [id number] Reema A New [id number] Reema A New 12/06/2023 1 [facility]) [id number] Reema A New [id number] Reema A New 01/08/2024 1 [facility]) [id number] Reema A New [id number] Reema A New 02/05/2024 1 [facility]) [id number] Reema A New [id number] Reema A New Notes Date Note Type Note Provider Name and Address Organization Details Recorded Time 4 text/html I am seeing the patient today under the supervision of Dr. Gar who was available but who did not see the patient.HPI: Patient is a 53-year-old woman with history of about 3 years of neck pain and bilateral upper extremity pain. She has been seen at [facility] for this. She complains of pain in her neck and radiating pain into her bilateral arms especially her shoulders. She reports pain and numbness into her fingers of both hands, predominantly in the median nerve distribution of each hand, right worse than left. Treatment so far has consisted of, physical therapy and manager urgent care. She does report difficulty with her gait and balance. She does report intermittent numbness in her feet as well. She denies any history of falls or trauma. Denies any bowel or bladder dysfunction.Past family, medical, social history and review of systems have been reviewed and updated on the medical history sheet saved to the patient's chart. Review of systems is negative except as noted above and/or on the medical history sheet.Examination: The patient is well appearing and in no apparent distress. Alert and oriented x3. The patient ambulates and transitions slowly with a wobbly nonantalgic gait. Examination of the neck reveals no skin changes, swelling, atrophy, deformity, or step-offs about the cervical spine. Good range of motion of the cervical spine including flexion, extension, lateral bending, and lateral rotation towards either side without exacerbation of neck or arm symptoms. Nontender to palpation throughout the midline cervical spine, paraspinal musculature, and periscapular musculature. 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 She has a positive Page's. She has normal reflexes. She has positive clonus bilateral ankles. Sensation to light touch is intact throughout axillary, radial, median, ulnar nerve distributions. Normal distal pulses and brisk capillary refill. Peripheral vascular, lymphatic examination, skin, neurological, coordination, sensation are within normal limits unless otherwise noted above.X-rays ordered, obtained and reviewed at [facility] 2 views of the cervical spine demonstrating multilevel degenerative changes noted most significant at C5-6 and C6-7 with disc space narrowing and bridging anterior osteophytesMRI of the C-spine from 2021 at [facility] independently reviewed by me today demonstrates syrinx, multilevel cervical spondylosis with moderate severe central and foraminal stenosisImpression: 53-year-old woman with over 3 years of cervical radiculopathy, history of cervical spondylosis and syrinx, gradually worsening symptoms with some myelopathic findings fluid in positive Page's sign and positive clonus with gait disturbancePlan: Findings discussed with the patient at length. I recommended an updated MRI of her cervical spine to evaluate for cord signal changes and to evaluate the degree of stenosis. I have recommended follow-up with one of our spine surgeons for further evaluation and discussion of MRI results area and she may require referral to neurosurgery due to the presence of a syrinx.A marine insurance claim examiner was utilized via [employer] video service which required increased time for interpretation and coordination of patient care today.[employer] speech recognition border machine operator software was used to create portions of this document. An attempt at proofreading has been made to minimize errors. Please call for corrections. Nishi Dupont PA-C [address] [facility] [address] [facility], [place], [address], [facility] - [facility] 11/24/2023 11:33:24 4 text/html [place] only speaking patient entire encounter was completed with the use of a video lang path therapist took over 25 minutes.HPI: 53-year-old female [place] only speaking patient presents complaining of left upper extremity radicular symptoms. Previously seen by one of my colleagues and referred to me. She complains of a couple years of balance problems and hand numbness and tingling. History of right carpal tunnel release in the past. Denies bowel/bladder incontinence and saddle anesthesia. PFMSH and ROS has been reviewed, updated, and is located in the patient? s chart. PRIOR TREATMENT AND MEDICATIONS: Physical ExamRespiration Rate 14-16Height and Weight per aboveNormal Development without evidence of gross deformitiesOriented to person/place/timeNormal mood and affectModerate difficulty with heel toe walk.Head and Neck:Normocephalic. Neck was supple without evidence of defects. Spine:Examination of the cervical spine demonstrated no crepitation with palpation of the spinous process.The patient was able to touch their chin to their chest and extend to look at the ceiling.No instability of the spine was demonstrated on physical exam. The spine had good strength and tone. Right Upper Extremity:No defects or tenderness.The patient was able to abduct their arm to 100 degrees.No evidence of shoulder instability. Right carpal tunnel release scar Strength Exam:5/5 shoulder abduction5/5 elbow flexion4/5 elbow extension4/5 wrist extension4/5 finger flexion5/5 hand intrinsics. Left Upper Extremity:No defects or tenderness. The patient was able to abduct their arm to 100 degrees. No evidence of shoulder instability. Strength Exam:5/5 shoulder abduction5/5 elbow flexion4/5 elbow extension4/5 wrist extension4/5 finger flexion5/5 hand intrinsics. Biceps and brachioradialis were 2+ and symmetric. Negative Hoffmanns test.Sensation intact from C5-T1. IMAGING AND DIAGNOSTIC TESTS: I independently reviewed 4 view radiographs of the cervical spine obtained today to include AP, lateral, flexion and extension and note spondylosis. No fractures. Normal flexion and extension.large anterior bridging osteophytes at C5-6 and C6-7.I independently reviewed a cervical spine MRI from February 16, 2021 which notes disc degeneration. C3-4 with large disc protrusion paracentrally to the left with cord impingement and radicular impingement. Syrinx noted in the cervical spine. ASSESSMENT AND PLAN: Cervical spondylosis myelopathyDiagnosis and treatment options were discussed.She needs new imaging to assemble cumulative treatment plan. She has a cervical spine MRI scheduled.FOLLOW UP: After cervical spine MRI. Vladimir Payne MD [address], [place], [address], [facility] - [facility] 12/06/2023 14:15:07 4 text/html [place] only speaking patient entire encounter was completed with the use of a video lang path therapist took over 30 minutes.HPI: 53-year-old female [place] only speaking patient presents complaining of left upper extremity radicular symptoms. She complains of a couple years of balance problems and hand numbness and tingling. History of right carpal tunnel release in the past. New cervical spine MRI for review today. Denies bowel/bladder incontinence and saddle anesthesia. PFMSH and ROS has been reviewed, updated, and is located in the patient? s chart. Physical ExamRespiration Rate 14-16Height and Weight per aboveNormal Development without evidence of gross deformitiesOriented to person/place/timeNormal mood and affectModerate difficulty with heel toe walk.Head and Neck:Normocephalic. Neck was supple without evidence of defects. Spine:Examination of the cervical spine demonstrated no crepitation with palpation of the spinous process.The patient was able to touch their chin to their chest and extend to look at the ceiling.No instability of the spine was demonstrated on physical exam. The spine had good strength and tone. Right Upper Extremity:No defects or tenderness.The patient was able to abduct their arm to 100 degrees.No evidence of shoulder instability. Right carpal tunnel release scar Strength Exam:5/5 shoulder abduction5/5 elbow flexion4/5 elbow extension4/5 wrist extension4/5 finger flexion5/5 hand intrinsics. Left Upper Extremity:No defects or tenderness. The patient was able to abduct their arm to 100 degrees. No evidence of shoulder instability. Strength Exam:5/5 shoulder abduction5/5 elbow flexion4/5 elbow extension4/5 wrist extension4/5 finger flexion5/5 hand intrinsics. Biceps and brachioradialis were 2+ and symmetric. Negative Hoffmanns test.Sensation intact from C5-T1. IMAGING AND DIAGNOSTIC TESTS: I independently reviewed 4 view radiographs of the cervical spine obtained today to include AP, lateral, flexion and extension and note spondylosis. No fractures. Normal flexion and extension.large anterior bridging osteophytes at C5-6 and C6-7. I independently reviewed a cervical spine MRI from February 16, 2021 which notes disc degeneration. C3-4 with large disc protrusion paracentrally to the left with cord impingement and radicular impingement. Syrinx noted in the cervical spine. I independently reviewed an MRI of the cervical spine obtained December 12, 2023 which notes C3-4 large disc protrusion with cord compression paracentral to the left. Syrinx noted. Syrinx same as prior MRI from 2020. C3-4 disc compresses the exiting left C4 nerve root causing foraminal stenosis. Right-sided foraminal stenosis at C5-6. Other degenerative changes noted. ASSESSMENT AND PLAN: Cervical spondylosis myelopathyDiagnosis and treatment options were discussed.We discussed her situation in detail. This was all done with the use of an lang path therapist and took a significant amount of time. We discussed an anterior cervical discectomy and fusion at C3-4. She was currently undecided. I will order a vitamin D level to optimize prior to surgery. She is uncertain as to what she wants to do and would like to have more discussion about the possibility of surgery. She will follow-up for a repeat discussion.FOLLOW UP: 2 months. Vladimir Payne MD [address] [place] [address] [address], [place], [address], [facility] - [facility] 01/15/2024 13:33:56 4 text/html [place] only speaking patient entire encounter was completed with the use of a video lang path therapist took over 30 minutes.HPI: 53-year-old female [place] only speaking patient here in follow-up complaining of left upper extremity radicular symptoms. She complains of a couple years of balance problems and hand numbness and tingling. History of right carpal tunnel release in the past. We reviewed her MRI at last encounter however she wanted to obtain second opinions. Denies bowel/bladder incontinence and saddle anesthesia. PFMSH and ROS has been reviewed, updated, and is located in the patient? s chart. Physical ExamRespiration Rate 14-16Height and Weight per aboveNormal Development without evidence of gross deformitiesOriented to person/place/timeNormal mood and affectModerate difficulty with heel toe walk.Head and Neck:Normocephalic. Neck was supple without evidence of defects. Spine:Examination of the cervical spine demonstrated no crepitation with palpation of the spinous process.The patient was able to touch their chin to their chest and extend to look at the ceiling.No instability of the spine was demonstrated on physical exam. The spine had good strength and tone. Right Upper Extremity:No defects or tenderness.The patient was able to abduct their arm to 100 degrees.No evidence of shoulder instability. Right carpal tunnel release scar Strength Exam:5/5 shoulder abduction5/5 elbow flexion4/5 elbow extension4/5 wrist extension4/5 finger flexion5/5 hand intrinsics. Left Upper Extremity:No defects or tenderness. The patient was able to abduct their arm to 100 degrees. No evidence of shoulder instability. Strength Exam:5/5 shoulder abduction5/5 elbow flexion4/5 elbow extension4/5 wrist extension4/5 finger flexion5/5 hand intrinsics. Biceps and brachioradialis were 2+ and symmetric. Negative Hoffmanns test.Sensation intact from C5-T1. IMAGING AND DIAGNOSTIC TESTS: I independently reviewed 4 view radiographs of the cervical spine obtained today to include AP, lateral, flexion and extension and note spondylosis. No fractures. Normal flexion and extension.large anterior bridging osteophytes at C5-6 and C6-7. I independently reviewed a cervical spine MRI from February 16, 2021 which notes disc degeneration. C3-4 with large disc protrusion paracentrally to the left with cord impingement and radicular impingement. Syrinx noted in the cervical spine. I independently reviewed an MRI of the cervical spine obtained December 12, 2023 which notes C3-4 large disc protrusion with cord compression paracentral to the left. Syrinx noted. Syrinx same as prior MRI from 2020. C3-4 disc compresses the exiting left C4 nerve root causing foraminal stenosis. Right-sided foraminal stenosis at C5-6. Other degenerative changes noted. ASSESSMENT AND PLAN: Cervical spondylosis myelopathyDiagnosis and treatment options were discussed.We discussed her situation in great great detail. This was all done with the use of an lang path therapist and took a significant amount of time. We discussed an anterior cervical discectomy and fusion at C3-4 possible corpectomy. She has elected for surgery. I will order a vitamin D level to optimize prior to surgery. We discussed the risks and benefits. After reviewing the patient's history, physical exam and studies I have decided the patients chronic illness with progression warrants elective major surgery. The patient has completed greater than 6 weeks of physician directed nonoperative management of this condition to include medications and physical therapy without improvement. I have further discussed the natural progression of this disease as well as the operative and non- operative modalities that are appropriate for treating this disease. The known risks of surgery include infection, bleeding, damage to nerves and/or arteries, continued pain, loss of motion, spinal fluid leak, Dysphagia, hoarseness, and the possible need for further surgeries. Risks of anesthesia such as nausea, vomiting, pneumonia, stroke, heart attack and .She will be placed on the surgery schedule for a C3-4 ACDF versus corpectomy. Vladimir Payne MD [address] [place] [address] [address], [place], [address], [facility] - [facility] 02/12/2024 09:00:47 OBGyn Episode No OBEpisode recorded.
--- OUTSIDE RECORDS SUMMARY | 2024-07-09 09:45 | XMS_ITS | Clinical Summary ---
Author Organization [facility] Address [address] [address] Phone Care Team Providers Care Kiln Stacker Name Role Phone Vandana Bragg MD Primary [...] have apparently an ultrasound November 2021 at [facility]. I do not have the size [...] Medical Devices Not on file Care Teams Kiln Stacker Relationship Specialty Start Date End Date Vandana Bragg MD [address] [place] [address] PCP - General Internal Medicine 11/14/22 Additional Source Comments The information contained in this document represents components of the legal health record. It is not the complete legal health record.[facility]
== END 2024-07-09 09:16 | disposition home or self-care (01) ==
LOC: HO.HGS 08:59
PROVIDERS: PCP Internal Medicine; Visit Provider Surgery
DX: R59.0 Localized enlarged lymph nodes (principal)
CPT/HCPCS: 99204

== ENCOUNTER → 2024-07-09 08:58 | Outpatient (BNVA) | payer OTHER, SELFPAY | PROVIDERS: PCP Internal Medicine; Visit Provider Surgery ==

== ENCOUNTER 2024-08-08 12:47 | Outpatient (REF) | payer OTHER, SELFPAY ==
--- NOTE | ~2024-08-08 | US_ITS ---
Ultrasound-guided fine-needle aspiration of right submandibular lymphadenopathy Indication: Persistent right cervical/submandibular lymphadenopathy Procedure: Informed consent was obtained from the patient prior to the procedure. During this process, the procedure and potential alternatives were explained, along with the intended outcome and benefits. The risks of the procedure, as well as the risks of not doing the procedure, were discussed. The patient was given the opportunity to ask questions regarding the procedure and appeared competent to make medical decisions. A signed consent form which documents this discussion was placed in the medical record. A timeout was performed in the room. The patient was placed in a supine position with the neck extended. The right side of the neck and chest was prepped and draped in routine sterile fashion. 1% lidocaine was used as anesthetic. Under real-time ultrasound guidance, a 25-gauge needle was placed into the right submandibular lymph node and aspiration was performed. A total of 3 aspirations were performed. The specimens were done for cytology and flow cytometry. Postprocedure images showed no hematoma. A Band-Aid was applied to the access site. The patient tolerated the procedure well with no immediate complications. Permanent ultrasound images were archived to the procedure. US/US guided fine needle asp Impression: Ultrasound-guided fine-needle aspiration of right submandibular lymphadenopathy. This procedure was performed by David Ramos PA-C, and directly supervised by Dr. Mcdonald. Electronically signed by: Bony Mcdonald MD 09/09/2024 08:06 AM EDT
--- OUTSIDE RECORDS SUMMARY | 2024-08-08 13:12 | XMS_ITS | Data Portability ---
Author Organization [place] - [facility], [facility] Address [address] [place] [address] Care Team Providers Care Veneer Sheet Repairer Name Role Phone PIPER GEIGER Primary Care Provider [phone] Assessment No assessment recorded. Plan of Treatment Reminders Order Date Submit Date Provider Last Modified By Organization Details Last Modified Time Details Appointments None recorded. Lab vitamin D panel, serum or plasma 2023 [email or web address] [facility] (Centralized Electronic Ordering - All Locations), Patient Can Go To The Location Of Their Choice, [address] 4 16:17:56 Referral None recorded. Procedures None recorded. Surgeries None recorded. Imaging XR, cervical spine, 2 or 3 view - 324. 2 views of C-spine 2023 024 [email or web address] [facility], [address], [place], [address], 4 09:32:23 MRI, cervical spine, w/o contrast - Eval:?cervi emmy myelopathy 2023 024 [email or web address] [facility] ([facility] [address], [place], [address], 4 09:32:23 Medication Orders None recorded. Patient [...] um and D. Emanuel martinez [place]: The [facility] Press . 2. Edgar jeter MF, Luly donovan [place], Sierra off-F dee dee i BLACKMON, et al. Evalu ation , treat ment, and preve ntion of vitam in D defic iency : an Endoc rine Socie ty clini emmy pract ice guide line. JCEM. 2010; 96(7) :1911 -30. Not Available [facility] ([facility]) [address] [facility] [facility], [place], [address], 01/09/2024 06:05:20 11/21/19 24 11/21/2023 XR, cervi emmy spine , 2 or 3 view http:/ [email or web address] ?Encry pted=s hAaTro YD8dLq bEUv6g %2BXZw aYqtaq 0bqfl% 2Fg9IQ a4ajBk vP9nXo QUaueC m3YtLR FvZlgJ JJ8mAn HZtai3 4g7034 AC0KoY 3yHUqv eUC8mr 84%3D INTERFACE [facility] [address] [facility] [address], [place], [address], 11/21/2023 14:54:50 11/21/19 24 11/21/2023 XR, cervi emmy spine , 2 or 3 view http:/ [email or web address] ?Encry pted=s hAaTro YD8dLq bEUv6g %2BXZw aYqtaq 0bqfl% 2Fg9IQ a4ajBk vP9nXo QUaueC m3YtLR FvZl JJ8mAn HZtai3 2e5032 AC0KoY 3yHUqv eUC8mr 84%3D INTERFACE [facility] [address], [place], [address], 11/21/2023 14:54:52 11/24/19 24 11/21/2023 XR, cervi emmy spine , 2 or 3 view http:/ [email or web address] ?Encry pted=s hAaTro YD8dLq bEUv6g %2BXZw aYqtaq 0bqfl% 2Fg9IQ a4ajBk vP9nXo QUaueC m3YtLR FvZlg JJ8[place] HZtai3 0v7678 AC0KoY 3yHUqv eUC8mr 84%3D INTERFACE [facility] [address], [place], [address], 11/24/2023 11:29:51 11/24/19 24 11/21/2023 XR, cervi emmy spine , 2 or 3 view http:/ [email or web address] ?Encry pted=s hAaTro YD8dLq bEUv6g %2BXZw aYqtaq 0bqfl% 2Fg9IQ a4ajBk vP9nXo QUaueC m3YtLR FvZl J8[place] HZtai3 9m7376 AC0KoY 3yHUqv eUC8mr 84%3D INTERFACE [facility] [address], [place], [address], 11/24/2023 11:29:52 12/08/19 24 02/16/2021 imagi ng/di agnos tic resul t No observ ation record ed. [email or web address] Not Available 11/09 11:04:56 12/08/1912/22/2020 imagi ng/di agnos tic resul t No observ ation record ed. [email or web address] Not Available 11/09 11:05:05 12/13/19 24 12/12/2023 MRI, cervi emmy spine , w/o contr ast Shield s MRI at [facility], [facility] Access ion Number : [id number] G[address] palomino Name: Valentín [facility] na Medica l Record Number : [id number] Date of : 1970 Date of Exam: 2023 Referr ing Physic markell: Jono stephens , Aiden blackmon NEOS [address], [address] [facility] , [place] [address] Exam: MR Cervic al Spine (C-) CPT 28874 Room Descri ption: [facility] Mob 1.5 HISTOR Y: Neck pain and arm pain. COMPAR MANDA: MRI, 2020. FINDIN GS: ALIGNM ENT, VERTEB MARILUZ, MARROW , AND DISCS: Verteb ral body height , curvat ure, and alignm ent are normal . There is no signif icant disc space narrow ing and anteri or osteop hytes are seen at C5-6 and C6-7. Bone marrow signal is normal . FIRE SYSTEMS INSPECTOR IOR FOSSA AND CORD: The visual ized core maker ior fossa and cervic omedul courtney juncti [...] onical ly Signed By: Jonelle sheehan MD [address] ([facility]) [address] [place], [address], 12/18/2023 11:18:39 Result Notes None recorded. Problems Name Problem SNOMED Code Status Onset Date Resolution Date Notes Provider Name and Address Organization Details Recorded Time Cervical myelopathy 916297966 Active 2023 Vladimir Payne MD [address], [place], [address], [place] - [facility] 4 14:14:53 Spinal stenosis in cervical region 14140791 Active 2023 MD [address], [place], [address], [place] - [facility] 13:33:33 Intervertebral disc disorder of cervical region with myelopathy 83522653 Active 2023 Vladimir Payne MD [address], [place], [address], [facility] 13:33:34 Problem Notes None recorded. Procedures Surgical History None recorded. Imaging Results Imaging Date Name Status LastModified by Organiz ation Details LastModified Time 11/21/2023 XR, cervical spine, 2 or 3 view completed INTERFACE [facility] [address], [place], [address], 11/21/2023 14:54:50 11/21/2023 XR, cervical spine, 2 or 3 view completed INTERFACE [facility] [address], [place], [address], 11/21/2023 14:54:52 11/21/2023 XR, cervical spine, 2 or 3 view completed INTERFACE [facility] [address], [place], [address], 11/24/2023 11:29:51 11/21/2023 XR, cervical spine, 2 or 3 view completed INTERFACE [facility] [address], [place], [address], 11/24/2023 11:29:52 02/16/2021 imaging/diagn ostic result completed Information not available 12/08/2023 11:04:56 12/22/2020 imaging/diagn ostic result completed Information not available 12/08/2023 11:05:05 12/12/2023 MRI, cervical spine, w/o contrast completed [address] ([facility]) [address] [place], [address], 12/18/2023 11:18:39 Procedure Notes None recorded. Medical Equipment None Reported. Allergies Allergen ID Allergen Name Allergen Category Reaction Reaction Severity Criticality Documentation Date Start Date Code Code System Note Provider Name and Address Organization Details Recorded Time 252771 latex environme nt,medica tion Not available Not available Not available 01/08/2024 25936 91 RxNorm ABDIEL COLONDENIA griffith [facility] 09:06:08 580282 Valium medicatio n Not available Not available Not available 01/08/202408799 2 RxNorm ABDIEL GRETCHENDENIA griffith [facility] 09:06:14 08644 tramadol hydrochlo ride medicatio n Not available Not available Not available 06/11/20232020 31416 RxNorm ABDIEL COLONDENIA griffith [facility] 09:06:02 Medications Name Sig Start Date Stop [...] Address Organization Details Last Updated DateTime 11/21/2023 76915.86 g 27.4 kg/m2 157.48 cm Melinda Carey [facility] 11/21/2023 14:39:34 Date Recorded Body height Body mass index (BMI) Body weight Provider Name and Address Organization Details Last Updated DateTime 12/06/2023 157.48 cm 27.4 kg/m2 35906.86 g NEMO ESCOBAR [facility] 12/06/2023 10:28:59 Date Recorded Body height Body mass index (BMI) Body weight Provider Name and Address Organization Details Last Updated DateTime 01/08/2024 154.94 cm 28.3 kg/m2 96983.86 g ABDIEL GODINEZ [facility] 01/08/2024 09:05:58 Date Recorded Body height Body mass index (BMI) Body weight Provider Name and Address Organization Details Last Updated DateTime 02/05/2024 154.94 cm 28.3 kg/m2 59797.86 g Jonathan Walker [facility] 02/05/2024 11:42:26 Social History None recorded. Functional Status None recorded. Mental Status None recorded. Family History Nothing Reported. Medical History No medical history recorded. Gynecological HistoryNo gynecological history recorded. Obstetrics History GPAL:G 0 P 0 0 0 0 Past Encounters Encounter ID Performer Location Encounter Start Date Encounter Closed Date Diagnosis/Indication Diagnosis SNOMED-CT Code Diagnosis ICD10 Code Diagnosis Note [id number] Nishi charles PA-C [facility] [address] [place] [address] 11/21/2023 14:21:05 12/14/2023 09:32:23 Neck pain 07826792 M54.2 Radiculopa thy due to cervical spondylosis 7155717075 M47.22 Myelopathy due to cervical spondylosis 3383124432 M47.12 [id number] Vladimir Payne MD [facility] [address] [place] [address] 12/06/2023 09:51:02 12/28/2023 08:15:36 Cervical myelopathy 460854787 G95.9 [id number] Vladimir Payne MD [facility] [address] [place] [address] 01/08/2024 08:49:42 01/23/2024 12:15:01 Pre-surgery testing 801440464 Z01.89 Interverte bral disc disorder of cervical region with myelopathy 05667017 M50.00 Spinal [place] nosis in cervical region 30668073 M48.02 [id number] Vladimir Payne MD [facility] [address] [place] [address] 02/05/2024 10:53:53 02/25/2024 13:33:20 Intervertebral disc disorder of cervical region with myelopathy 26562741 M50.00 Health Concerns Section Related Observation LastModified by Organization Detai ls LastModified Time None Recorded Concern Status LastModified by Organization Details LastModified Time None Recorded Advance Directives Directive None Recorded Payers Encounter Date Sequence Insurance Name Policy Number Policy Remy Covered Member ID Remy Member ID Guarantor Name 11/21/2023 1 [facility] [id number] Reema A New [id number] Reema A New 12/06/2023 1 [facility]) [id number] Reema A New [id number] Reema A New 01/08/2024 1 [facility]) [id number] Reema A New [id number] Reema A New 02/05/2024 1 [facility]) [id number] Reema A New [id number] Reema A New Notes Date Note Type [...] extremity pain. She has been seen at [facility] for this. She complains of pain in her neck and radiating pain into her bilateral arms especially her shoulders. She reports pain and numbness into her fingers of both hands, predominantly in the median nerve distribution of each hand, right worse than left. Treatment so far has consisted of, physical therapy and career development manager. She does report difficulty with her gait [...] triceps, wrist flexors and extensors, finger abduction, advertising coordinator strength, pinch strength. She has a positive Page's. She has normal reflexes. She has positive clonus bilateral ankles. Sensation to light touch is intact throughout axillary, radial, median, ulnar nerve distributions. Normal distal pulses and brisk capillary refill. Peripheral vascular, lymphatic examination, skin, neurological, coordination, sensation are within normal limits unless otherwise noted above.X-rays ordered, obtained and reviewed at [facility] 2 views of the cervical spine demonstrating multilevel degenerative changes noted most significant at C5-6 and C6-7 with disc space narrowing and bridging anterior osteophytesMRI of the C-spine from 2021 at [facility] independently reviewed by me today demonstrates [...] due to the presence of a syrinx.A integrated specialist was utilized via [employer] video service which required increased time for interpretation and coordination of patient care today.[employer] speech recognition vp informatics software was used to create portions of this document. An attempt at proofreading has been made to minimize errors. Please call for corrections. Nishi Dupont PA-C [address] [facility] [address] [facility], [place], [address], [facility] 11/24/2023 11:33:24 4 text/html Sinhala only speaking patient entire encounter was completed with the use of a video back tender fourdrinier took over 25 minutes.HPI: 53-year-old female Sinhala only speaking patient presents complaining of left [...] Payne MD [address], [place], [address], [facility] 12/06/2023 14:15:07 4 text/html Sinhala only speaking patient entire encounter was completed with the use of a video back tender fourdrinier took over 30 minutes.HPI: 53-year-old female Sinhala only speaking patient presents complaining of left [...] all done with the use of an back tender fourdrinier and took a significant amount of time. [...] discussion.FOLLOW UP: 2 months. Vladimir Payne MD [address] [place] [address] [address], [place], [address], [facility] 01/15/2024 13:33:56 4 text/html Sinhala only speaking patient entire encounter was completed with the use of a video back tender fourdrinier took over 30 minutes.HPI: 53-year-old female Sinhala only speaking patient here in follow-up complaining [...] all done with the use of an back tender fourdrinier and took a significant amount of time. [...] C3-4 ACDF versus corpectomy. Vladimir Payne MD [address] [place] [address] [address], [place], [address], [facility] 02/12/2024 09:00:47 OBGyn Episode No OBEpisode recorded.
--- OUTSIDE RECORDS SUMMARY | 2024-08-08 13:12 | XMS_ITS | Clinical Summary ---
Author Organization [facility] Address [address] [address] Phone Care Team Providers Care Spring Fitter Helper Name Role Phone Vandana Bragg MD Primary [...] have apparently an ultrasound November 2021 at [facility]. I do not have the size of [...] Medical Devices Not on file Care Teams Spring Fitter Helper Relationship Specialty Start Date End Date Vandana Bragg MD [address] [place] [address] PCP - General Internal Medicine 11/14/22 Additional Source Comments The information contained in this document represents components of the legal health record. It is not the complete legal health record.[facility]
[2024-08-08] MEDS: Lidocaine HCl 1 % MPF 5 ML VIAL SUBCUT (15:31)
== END 2024-08-08 12:48 | disposition home or self-care (01) ==
LOC: HO.US 12:47
PROVIDERS: Physician Assistant Surgical; PCP Internal Medicine; Visit Provider Surgery
DX: R59.0 Localized enlarged lymph nodes (principal)
CPT/HCPCS: 10005; 88173; 88184; 88185; 88300; 88305; J2003

== ENCOUNTER → 2024-08-08 12:49 | Outpatient (BNV) | payer OTHER, SELFPAY | PROVIDERS: PCP Internal Medicine; Visit Provider Physician Assistant Surgical | DX: R59.0 Localized enlarged lymph nodes (principal) | CPT/HCPCS: 10005 ==

== ENCOUNTER 2024-08-14 08:19 | Outpatient (REF) | payer OTHER, SELFPAY | END 2024-08-14 08:20 | disposition home or self-care (01) | LOC: HO.MAMMO 08:19 | PROVIDERS: PCP Internal Medicine; Visit Provider Internal Medicine | DX: Z12.31 Encounter for screening mammogram for malignant neoplasm of breast (principal) | CPT/HCPCS: 77063; 77067 ==

== ENCOUNTER → 2024-08-14 08:30 | Outpatient (BNV) | payer OTHER, SELFPAY | PROVIDERS: PCP Internal Medicine; Visit Provider Internal Medicine | DX: Z12.31 Encounter for screening mammogram for malignant neoplasm of breast (principal) | CPT/HCPCS: 77063; 77067 ==

== ENCOUNTER 2024-09-29 08:55 | Outpatient (AMB) | payer OTHER, SELFPAY ==
--- NOTE | 2024-09-29 08:59 | MHC.OFFVIS ---
Vital Signs 09/29/24 09:06 Height 5 ft 2 in Weight 160 lb BMI 29.3 BP 132/76 Blood Pressure Location Rt brachial Position Sitting Pulse 75 Intake Visit Reasons: results thyroid US aspiration Intake Note: Patient here to discuss Lymph node, right cervical/submandibular, fine needle aspiration results. Swallowing has improved since last visit. States throat discomfort and swallowing issues may have been related to seasonal allergies. Patient c/o: neck feels inflamed. Talent Acquisition Associate Required: Yes Accompanied by: Self / Same As Patient Allergies oxycodone (Percocet) Allergy (Intermediate, Verified 09/29/24 09:05) rash sulindac Allergy (Intermediate, Verified 09/29/24 09:05) Abdominal Pain tramadol Allergy (Intermediate, Verified 09/29/24 09:05) Abdominal Pain diazepam (From VALIUM) Allergy (Mild, Verified 09/29/24 09:05) HIVES fluoxetine (From PROZAC) Allergy (Mild, Verified 09/29/24 09:05) HIVES Medication List - Last Reconciled 09/29/24 by Renard Wilcox MD cetirizine (Allergy Relief (cetirizine)) 10 mg PO DAILY PRN 90 days zolpidem 5 mg PO BEDTIME PRN 30 days HPI HPI results thyroid US aspiration: Details: 54 year old female here for follow-up for palpable cervical lymph nodes. She had seen Dr. Persaud in July, because of this. She had undergone ultrasound biopsy of 1 of the cervical lymph nodes and she is here to discuss the findings She currently denies any new complaints. She says she tolerated the biopsy well. She describes the palpable neck lymph nodes to be stable in size although she says that she thinks once in a while they would get swollen PFSH Medical History Cervical myelopathy Syrinx of spinal cord Goiter Polyarthralgia Pure hypercholesterolemia Fibromyalgia Osteoarthritis, hip, bilateral Physical exam Overweight Neck pain Hip pain, bilateral Surgical History Hx of colonoscopy History of esophagogastroduodenoscopy (EGD) H/O skin graft S/P TAMERA (total abdominal hysterectomy) Osteochondroma of femur Family History Father Stroke Mother Diabetes mellitus Social History Housing: Apartment Alcohol intake: never Patient Tobacco Use Status: Never used Tobacco Tobacco use type: Cigarette e-Cigarette/Vaping Use: Never Used Second Hand Smoke Exposure: No service: No Current occupational status: unemployed Cognitive needs: No Hearing needs: No Vision needs: No Review of Systems Const Denies chills and Denies fever(s) Card Denies chest pain, Denies dyspnea and Denies dyspnea on exertion Resp Denies cough, Denies dyspnea and Denies dyspnea on exertion GI Denies hematochezia and Denies change in bowel habits Denies hematuria Musc Denies back pain and Denies limited range of motion Neuro Denies focal weakness and Denies convulsions Psych Denies depression and Denies mood swings Physical Exam Const General: comfortable and no acute distress HEENT Other: Small palpable lymph nodes on the right neck, mobile, no obvious oral lesions Resp Effort & Inspection: normal respiratory effort Cardio Rate: regular rate GI Palpation (GI): Soft to palpation, not firm and nontender Assessment & Plan Assessment & Plan (1) Cervical lymphadenopathy: Code(s): R59.0 - Localized enlarged lymph nodes Category: Surgical Plan: Status post ultrasound biopsy. Her path report suggest a reactive lymph node. I would recommend repeating the ultrasound in the next 6 months. Current exam shows small lymph nodes. I do not see any oral lesions. I assured her that overall clinical picture does not suggest a neoplastic process but we will follow her closely. She understands the plan well and seems to be comfortable with this. Coding Level of Care Code Est Pt Level 3 (68335) Diagnoses Cervical lymphadenopathy R59.0
[2024-09-29 09:06] VITALS: BP 132/76; PULSE 75; BMI 29.3
--- OUTSIDE RECORDS SUMMARY | 2024-09-29 09:30 | XMS_ITS | Data Portability ---
Author Organization [facility], [facility] Address [address] [place] [address] Care Team Providers Care Rubber Press Operator Name Role Phone PIPER GEIGER Primary Care Provider Assessment No assessment recorded. Plan of Treatment Reminders Order Date Submit Date Provider Last Modified By Organization Details Last Modified Time Details Appointments None recorded. Lab vitamin D panel, serum or plasma 2023 Biodel 14 [facility] (Centralized Electronic Ordering - All Locations), Patient Can Go To The Location Of Their Choice, [address] 4 16:17:56 Referral None recorded. Procedures None recorded. Surgeries None recorded. Imaging XR, cervical spine, 2 or 3 view - 324. 2 views of C-spine 2023 024 [facility], [address], [address], [place], [address], 4 09:32:23 MRI, cervical spine, w/o contrast - Eval:?cervi emmy myelopathy 2023 024 [email or web address] [facility] ([facility] [address], [place], [address], 4 09:32:23 Medication Orders None recorded. Patient [...] um and D. Emanuel martinez [place]: [facility] . 2. Edgar jeter MF, Luly donovan [place], [place] off-F dee dee i TYLER, et al. Evalu ation , treat ment, and preve ntion of vitam in D defic iency : an Endoc rine Socie ty clini emmy pract ice guide line. JCEM. 2010; 96(7) :1911 -30. Not Available [facility] ([facility]) [address] [facility], [place], [address], 01/09/2024 06:05:20 11/21/19 24 11/21/2023 XR, cervi emmy spine , 2 or 3 view http:/ [email or web address] ?Encry pted=s hAaTro YD8dLq bEUv6g %2BXZw aYqtaq 0bqfl% 2Fg9IQ a4ajBk vP9nXo QUaueC m3YtLR FvZlgJ JJ8mAn HZtai3 3t0877 AC0KoY 3yHUqv eUC8mr 84%3D INTERFACE [facility] [address] [facility] [address], [place], [address], 11/21/2023 14:54:50 11/21/19 24 11/21/2023 XR, cervi emmy spine , 2 or 3 view http:/ [email or web address] ?Encry pted=s hAaTro YD8dLq bEUv6g %2BXZw aYqtaq 0bqfl% 2Fg9IQ a4ajBk vP9nXo QUaueC m3YtLR FvZlgJ JJ8mAn HZtai3 6p2337 AC0KoY 3yHUqv eUC8mr 84%3D INTERFACE [facility] [address], [place], [address], 11/21/2023 14:54:52 11/24/19 24 11/21/2023 XR, cervi emmy spine , 2 or 3 view http:/ [email or web address] ?Encry pted=s hAaTro YD8dLq bEUv6g %2BXZw aYqtaq 0bqfl% 2Fg9IQ a4ajBk vP9nXo QUaueC m3YtLR FvZlgJ JJ8[place] HZtai3 2e8862 AC0KoY 3yHUqv eUC8mr 84%3D INTERFACE [facility] [address], [place], [address], 11/24/2023 11:29:51 11/24/19 24 11/21/2023 XR, cervi emmy spine , 2 or 3 view http:/ [email or web address] ?Encry pted=s hAaTro YD8dLq bEUv6g %2BXZw aYqtaq 0bqfl% 2Fg9IQ a4ajBk vP9nXo QUaueC m3YtLR FvZl JJ8mAn tai3 6h9357 AC0KoY 3yHUqv eUC8mr 84%3D INTERFACE [facility] [address], [place], [address], 11/24/2023 11:29:52 12/08/19 24 02/16/2021 imagi ng/di agnos tic resul t No observ ation record ed. [email or web address] Not Available 11/09 11:04:56 12/08/19 24 12/22/2020 imagi ng/di agnos tic resul t No observ ation record ed. [email or web address] Not Available 11/09 11:05:05 12/13/19 24 12/12/2023 MRI, cervi emmy spine , w/o contr ast Shield s MRI at [facility], [facility] Access ion Number : [id number] Patiizaiah t Name: Valentín New na Medica l Record Number : [id number] Date of : 1970 Date of Exam: 2023 Referr ing Physic markell: Aiden Dotson NEOS [address], [address] [place] [address] , [place] [facility] [address] Exam: MR Cervic al Spine (C-) CPT 55721 Room Descri ption: [place] [facility] 1.5 HISTOR Y: Neck pain and arm pain. COMPAR MANDA: MRI, 2020. FINDIN GS: ALIGNM ENT, VERTEB MARILUZ, MARROW , AND DISCS: Verteb ral body height , curvat ure, and alignm ent are normal . There is no signif icant disc space narrow ing and anteri or osteop hytes are seen at C5-6 and C6-7. Bone marrow signal is normal . BEAN SNAPPER IOR FOSSA AND CORD: The visual ized compounding scaler ior fossa and cervic omedul courtney juncti on are normal . There is a small syrinx within the cord extend ing from lower C5 to upper T1. This measur es up to [address] transv erse dimens ion, unchan ged. PARASP INAL TISSUE S: Surrou nding cervic al soft tissue s are normal . Flow voids are preser ink in the domina nt cervic al vessel [...] onical ly Signed By: Jonelle sheehan MD [address] ([facility]) [address] [place], [address], 12/18/2023 11:18:39 Result Notes Documentation Provider Name and Address Organization Details Recorded Time Xr, Cervical Spine, 2 Or 3 View : [email or web address]?E ncrypted=ngTcQhfAX7rEgkFCx 6g%0KTZvhNndur4fiki%2Fg9IQ d7hrXtrH9bFaLOkcbAg3TnFSMu RblWPX9qXjTSvox03q0981AL6E aJ6hHVcspUW1fe99%3D Not Available [facility] 11/21/2023 14:54:51 Xr, Cervical Spine, 2 Or 3 View : [email or web address]?E ncrypted=jlWvWkhJE1fKoqZGq 6g%1RXQcjBynhv7dipc%2Fg9IQ d4flOleL1mTbABnjfPk9KgDLGq LenIOO4xDtVCgko38t5163AT6Z eS0uMWhiuBD6vg75%3D Not Available [facility] 11/21/2023 14:54:53 Xr, Cervical Spine, 2 Or 3 View : [email or web address]?E ncrypted=bgDmOggHL0xIkpRSn 6g%9ZXKprLpibx8cdwv%2Fg9IQ s5olHigY6zRvANvodZf9MrUQMg YfaPCE8dYbTUwhg52y6482LF3Q gT7nUPwxnUO2dr04%3D Not Available [facility] 11/24/2023 11:29:51 Xr, Cervical Spine, 2 Or 3 View : [email or web address] ncrypted=zfYxEtrSE3qCgyTMf 6g%1ICYhdTlmlf1qukn%2Fg9IQ c0mrLeoB5eIeEVbiaLr3ZbGPXy RpaXED0bXvCZbkm60l6913HQ5K cN6fXQndeKP2fl42%3D Not Available [facility] 11/24/2023 11:29:53 Mri, Cervical Spine, W/o Contrast : [facility] at [facility], [facility] Accession Number: [id number] Patient Name: Reema New Date of : 1970 Date of Exam: 12-12-2023 Referring Physician: Nishi Dupont, [address] [place] [id number] Exam: MR Cervical Spine (C-) CPT 82408 Room Description: [place] [facility] 1.5 HISTORY: Neck pain and arm pain. COMPARISON: MRI, 02/16/2021. FINDINGS: ALIGNMENT, VERTEBRAE, MARROW, AND DISCS: Vertebral body height, curvature, and alignment are normal. There is no significant disc space narrowing and anterior osteophytes are seen at C5-6 and C6-7. Bone marrow signal is normal. POSTERIOR FOSSA AND CORD: The visualized posterior fossa and cervicomedullary junction are normal. There is a small syrinx within the cord extending from lower C5 to upper T1. This measures up to 3 mm in greatest transverse dimension, unchanged. PARASPINAL TISSUES: Surrounding cervical soft tissues are normal. Flow voids are preserved in the dominant cervical vessels. DETAILED FINDINGS BY LEVEL: C2-C3: There is no significant canal or neural foraminal stenosis. C3-C4: Both the left paracentral disc osteophyte causes moderate narrowing of the left half of the spinal canal with mild flattening of the ventral cord. No myelopathic signal abnormality is seen. This results in crowding of the exiting left C4 nerve root as well as severe narrowing the left neural foramen. C4-C5: There is no significant canal stenosis. There is mild narrowing of the left neural foramen from facet spurring. C5-C6: There is minimal disc osteophyte without canal stenosis. There is moderate narrowing of the neural foramen from uncovertebral spurring, slightly worse than prior. C6-C7: There is disc osteophyte asymmetric to the left without significant canal stenosis. There is severe narrowing of the right neural foramen from uncovertebral spurring, worse than prior. C7-T1: There is no significant canal or neural foraminal stenosis. IMPRESSION: 1. Again noted is bulky left paracentral disc osteophyte at C3-4 causing mild flattening of the left ventral cord without myelopathic signal abnormality. There is also crowding of the exiting left C4 nerve root with severe narrowing of the left neural foramen. 2. Right-sided neural foraminal stenosis at C5-6 and C6-7 is slightly worse than 02/16/2021, with severe narrowing at the latter level. 3. Other mild degenerative changes are stable, as is a tiny syrinx in the cervical thoracic cord. Electronically Signed By: Jonelle Dupont PA-C [address] [facility] [address] [facility], [place], [address], [facility] 12/18/2023 11:18:39 Problems Name Problem SNOMED Code Status Onset Date Resolution Date Notes Provider Name and Address Organization Details Recorded Time Cervical myelopathy 621761788 Active 2023 Vladimir Payne MD [address], [place], [address], [facility] 4 14:14:53 Spinal stenosis in cervical region 84546301 Active 2023 Vladimir Payne MD [address], [place], [address], [facility] 4 13:33:33 Intervertebral disc disorder of cervical region with myelopathy 64353216 Active 2023 Vladimir Payne MD [address], [place], [address], [facility] 4 13:33:34 Problem Notes None recorded. Medical Equipment None Reported. Allergies Allergen ID Allergen Name Allergen Category Reaction Reaction Severity Criticality Documentation Date Start Date Code Code System Note Provider Name and Address Organization Details Recorded Time 805907 latex environme nt,medica tion Not available Not available Not available 01/08/2024 92735 91 RxNorm ABDIEL GODINEZ [facility] 4 09:06:08 956910 Valium medicatio n Not available Not available Not available 01/08/2024 75003 2 RxNorm ABDIEL GODINEZ [facility] 4 09:06:14 13530 tramadol hydrochlo ride medicatio n Not available Not available Not available 06/11/20232020 49849 RxNorm ABDIEL GODINEZ [facility] 4 09:06:02 Medications Name Sig Start Date Stop [...] Available Not Available Not Available amoxicillin 875 mg-monet pastor clavulanate 125 mg tablet TAKE 1 TAB ORALLY 2 TIMES A DAY FOR 10 DAYS 11/20 completed Not Available Not Available Not Available Aleve active Not Available Not Availa ble Not Available Vitals Date Recorded Body weight Body mass index (BMI) Body height Provider Name and Address Organization Details Last Updated DateTime 11/21/2023 92965.86 g 27.4 kg/m2 157.48 cm Melinda Carey [facility] 11/21/2023 14:39:34 Date Recorded Body height Body mass index (BMI) Body weight Provider Name and Address Organization Details Last Updated DateTime 12/06/2023 157.48 cm 27.4 kg/m2 46471.86 g NEMO ESCOBAR [facility] 12/06/2023 10:28:59 Date Recorded Body height Body mass index (BMI) Body weight Provider Name and Address Organization Details Last Updated DateTime 01/08/2024 154.94 cm 28.3 kg/m2 13985.86 g ABDIEL COLONYMOUR [facility] 01/08/2024 09:05:58 Date Recorded Body height Body mass index (BMI) Body weight Provider Name and Address Organization Details Last Updated DateTime 02/05/2024 154.94 cm 28.3 kg/m2 37251.86 g Jonathan Walker [facility] 02/05/2024 11:42:26 Social History None recorded. Functional Status None recorded. Mental Status None recorded. Family History Nothing Reported. Medical History No medical history recorded. Gynecological HistoryNo gynecological history recorded. Obstetrics History GPAL:G 0 P 0 0 0 0 Past Encounters Encounter ID Performer Location Encounter Start Date Encounter Closed Date Diagnosis/Indication Diagnosis SNOMED-CT Code Diagnosis ICD10 Code Diagnosis Note [id number] Nishi charles PA-C [place] [address] [place] [address] 11/21/2023 14:21:05 12/14/2023 09:32:23 Neck pain 58264497 M54.2 Radiculopa thy due to cervical spondylosis 8633172970 M47.22 Myelopathy due to cervical spondylosis 9502156577 M47.12 [id number] Vladimir Payne MD [place] [address] [place] [address] 12/06/2023 09:51:02 12/28/2023 08:15:36 Cervical myelopathy 221320689 G95.9 [id number] Vladimir Payne MD [place] [address] [place] [address] 01/08/2024 08:49:42 01/23/2024 12:15:01 Pre-surgery testing 844537093 Z01.89 Interverte bral disc disorder of cervical region with myelopathy 75074569 M50.00 Spinal salvatore nosis in cervical region 86320343 M48.02 [id number] Vladimir Payne MD [place] [address] [place] [address] 02/05/2024 10:53:53 02/25/2024 13:33:20 Intervertebral disc disorder of cervical region with myelopathy 44194782 M50.00 Health Concerns Section Related Observation LastModified by Organization Detai ls LastModified Time None Recorded Concern Status LastModified by Organization Details LastModified Time None Recorded Advance Directives Directive None Recorded Payers Insurance Date Sequence Insurance Name Policy Number Policy Remy Covered Member ID Remy Member ID Guarantor Name 05/12/2024 1 [facility] ([facility] [id number] Reema New [id number] Reema Jesus New 11/20/2023 1 [facility] (MEDICAID HMO) [employer] Reema New [id number] Reema Jesus New 11/21/2023 1 [facility] (MEDICAID HMO) BASIL Caina A Virgen [id number] Reema Jesus New Notes Date Note Type Note Provider Name and Address Organization Details Recorded Time 4 text/html I am seeing the patient today under the supervision of Dr. Gar who was available but who did not see the patient.HPI: Patient is a 53-year-old woman with history of about 3 years of neck pain and bilateral upper extremity pain. She has been seen at [facility] for this. She complains of pain in her neck and radiating pain into her bilateral arms especially her shoulders. She reports pain and numbness into her fingers of both hands, predominantly in the median nerve distribution of each hand, right worse than left. Treatment so far has consisted of, physical therapy and emergency care attendant. She does report difficulty with her gait [...] triceps, wrist flexors and extensors, finger abduction, statistical modeler strength, pinch strength. She has a positive Page's. She has normal reflexes. She has positive clonus bilateral ankles. Sensation to light touch is intact throughout axillary, radial, median, ulnar nerve distributions. Normal distal pulses and brisk capillary refill. Peripheral vascular, lymphatic examination, skin, neurological, coordination, sensation are within normal limits unless otherwise noted above.X-rays ordered, obtained and reviewed at [facility] 2 views of the cervical spine demonstrating multilevel degenerative changes noted most significant at C5-6 and C6-7 with disc space narrowing and bridging anterior osteophytesMRI of the C-spine from 2021 at [facility] independently reviewed by me today demonstrates syrinx, [...] due to the presence of a syrinx.A school speech language pathologist was utilized via [employer] video service which required increased time for interpretation and coordination of patient care today.[employer] speech recognition medicinal chemist software was used to create portions of this document. An attempt at proofreading has been made to minimize errors. Please call for corrections. Nishi Dupont PA-C [address] [facility] [address], [place], [address], [facility] 11/24/2023 11:33:24 4 text/html Uruguayan only speaking patient entire encounter was completed with the use of a video lathe mechanic took over 25 minutes.HPI: 53-year-old female [place]ruguayan only speaking patient presents complaining of left upper extremity radicular symptoms. Previously seen by one of my colleagues and referred to me. She complains of a couple years of balance problems and hand numbness and tingling. History of right carpal tunnel release in the past. Denies bowel/bladder incontinence and saddle anesthesia. PFMSH and ROS has been reviewed, updated, and is located in the patient s chart. PRIOR TREATMENT AND MEDICATIONS: Physical [...] After cervical spine MRI. Vladimir Payne MD [address] [place] [address] [address], [place], [address], [facility] 12/06/2023 14:15:07 4 text/html Uruguayan only speaking patient entire encounter was completed with the use of a video lathe mechanic took over 30 minutes.HPI: 53-year-old female [place]rugu[place] only speaking patient presents complaining of left upper extremity radicular symptoms. She complains of a couple years of balance problems and hand numbness and tingling. History of right carpal tunnel release in the past. New cervical spine MRI for review today. Denies bowel/bladder incontinence and saddle anesthesia. PFMSH and ROS has been reviewed, updated, and is located in the patient s chart. Physical ExamRespiration Rate 14-16Height and [...] all done with the use of an lathe mechanic and took a significant amount of time. [...] discussion.FOLLOW UP: 2 months. Vladimir Payne MD [address], [place], [address], [facility] 01/15/2024 13:33:56 4 text/html Uruguayan only speaking patient entire encounter was completed with the use of a video lathe mechanic took over 30 minutes.HPI: 53-year-old female [place]ayan only speaking patient here in follow-up complaining [...] reviewed, updated, and is located in the patient s chart. Physical ExamRespiration Rate 14-16Height and [...] all done with the use of an lathe mechanic and took a significant amount of time. [...] C3-4 ACDF versus corpectomy. Vladimir Payne MD [address] [place] [address], [place], [address], [facility] 02/12/2024 09:00:47 OBGyn Episode No OBEpisode recorded.
== END 2024-09-29 09:14 | disposition home or self-care (01) ==
LOC: HO.HGS 08:56
PROVIDERS: PCP Internal Medicine; Visit Provider Surgery
DX: R59.0 Localized enlarged lymph nodes (principal)
CPT/HCPCS: 99213

== ENCOUNTER 2024-10-20 11:23 | Outpatient (REF) | payer OTHER, SELFPAY ==
--- NOTE | ~2024-10-20 | US_ITS ---
EXAMINATION: US THYROID CLINICAL INFORMATION: 4 mm nodule, right thyroid lobe. COMPARISON: October 15, 2023. TECHNIQUE: Linear transducer grayscale and color Doppler examination with attention to the region of the thyroid. FINDINGS: SIZE: Measurements of the thyroid lobes and nodules are given in sagittal, anteroposterior and transverse dimensions respectively. Right Thyroid Lobe: 3.7 x 1.5 x 2.0 cm, volume 5.9 mL. Previous: 4.0 x 1.6 x 1.8 cm, volume: 6.0 cc. Parenchyma: The gland echotexture is normal. Thyroid vascularity is normal. Left Thyroid Lobe: 3.1 x 1.2 x 1.1 cm, volume 2.3 mL. Previous: 3.5 x 1.4 x 1.4 cm, volume: 3.6 cc. Parenchyma: The gland echotexture is normal. Thyroid vascularity is normal. Isthmus: 0.2 cm in maximum AP dimension. Previous: 0.3 cm. Estimated total number of nodules greater than or equal to 1 cm: 0. Mri Technician nodules are described as follows: 1. Location: Right thyroid lobe mid portion.. Size: 0.5 x 0.3 x 0.4 cm, volume 0.3 mL. Previous: 0.4 x 0.3 x 0.4 cm, volume: 0.03 cc. Nodule characteristics: Composition: Solid (2). Echogenicity: Hypoechoic (2). Shape: Not taller than wide (0). Margins: Smooth (0). Echogenic Foci: None (0). ACR TI-RADS total points: 4 ACR TI-RADS category: 4 US/US thyroid IMPRESSION: ACR TI RADS 4, right thyroid lobe. ACR TI-RADS RECOMMENDATION REFERENCE: Ultrasound-guided fine-needle aspiration, followup ultrasound, no further follow up. * TR1 (0 point) and TR2 (2 points): No FNA or follow up. * TR3 (3 points): FNA if more than or equal to 2.5 cm in maximum dimension, followup ultrasound in 1, 3 and 5 years if 1.5 to 2.4 cm in maximum dimension. * TR4 (4-6 points): FNA if more than or equal to 1.5 cm in maximum dimension, followup ultrasound in 1, 2, 3 and 5 years if 1 to 1.4 cm in maximum dimension. * TR5 (more than or equal to 7 points): FNA if more than or equal to 1 cm in maximum dimension, followup ultrasound every year for 5 years if 0.5 to 0.9 cm in maximum dimension. * TR3, TR4 or TR5 nodules that are below the size threshold for followup receive no follow up. Electronically signed by: Pavel Rivera MD 10/20/2024 12:50 PM EDT
--- OUTSIDE RECORDS SUMMARY | 2024-10-20 12:31 | XMS_ITS | Data Portability ---
Author Organization [facility] [place] [facility], [facility] Address [address] [place] [address] Care Team Providers Care Curriculum And Instruction Director Name Role Phone PIPER GEIGER Primary Care Provider [phone] Assessment No assessment recorded. Plan of Treatment Reminders Order Date Submit Date Provider Last Modified By Organization Details Last Modified Time Details Appointments None recorded. Lab vitamin D panel, serum or plasma 2023 Visonys 14 [facility] (Centralized Electronic Ordering - All Locations), Patient Can Go To The Location Of Their Choice, [address] 4 16:17:56 Referral None recorded. Procedures None recorded. Surgeries None recorded. Imaging XR, cervical spine, 2 or 3 view - 324. 2 views of C-spine 2023 024 [id number] [facility], [address], [address], [place], [address], 4 09:32:23 MRI, cervical spine, w/o contrast - Eval:?cervi emmy myelopathy 2023 024 [email or web address] [facility] ([facility]), [address], [place], [address], 4 09:32:23 Medication Orders None recorded. Patient [...] um and D. Emanuel martinez [place]: The [facility] . 2. Edgar jeter MF, Luly donovan [place], [place] off-F dee dee i TYLER, et al. Evalu ation , treat ment, and preve ntion of vitam in D defic iency : an Endoc rine Socie ty clini emmy pract ice guide line. JCEM. 2010; 96(7) :1911 -30. Not Available [facility] ([facility]) [address] [facility] [address], [place], [address], 01/09/2024 06:05:20 11/21/19 24 11/21/2023 XR, cervi emmy spine , 2 or 3 view http:/ [email or web address] ?Encry pted=s hAaTro YD8dLq bEUv6g %2BXZw aYqtaq 0bqfl% 2Fg9IQ a4ajBk vP9nXo QUaueC m3YtLR FvZlgJ JJ8mAn HZtai3 9i9261 AC0KoY 3yHUqv eUC8mr 84%3D INTERFACE [facility] [address] [facility] [address], [place], [address], 11/21/2023 14:54:50 11/21/19 24 11/21/2023 XR, cervi emmy spine , 2 or 3 view http:/ [email or web address] ?Encry pted=s hAaTro YD8dLq bEUv6g %2BXZw aYqtaq 0bqfl% 2Fg9IQ a4ajBk vP9nXo QUaueC m3YtLR FvZlgJ JJ8mAn HZtai3 4p6516 AC0KoY 3yHUqv eUC8mr 84%3D INTERFACE [facility] [address], [place], [address], 11/21/2023 14:54:52 11/24/19 24 11/21/2023 XR, cervi emmy spine , 2 or 3 view http:/ [email or web address] ?Encry pted=s hAaTro YD8dLq bEUv6g %2BXZw aYqtaq 0bqfl% 2Fg9IQ a4ajBk vP9nXo QUaueC m3YtLR FvZlgJ JJ8Cleveland HZtai3 2k6944 AC0KoY 3yHUqv eUC8mr 84%3D INTERFACE [facility] [address], [place], [address], 11/24/2023 11:29:51 11/24/19 24 11/21/2023 XR, cervi emmy spine , 2 or 3 view http:/ [email or web address] ?Encry pted=s hAaTro YD8dLq bEUv6g %2BXZw aYqtaq 0bqfl% 2Fg9IQ a4ajBk vP9nXo QUaueC m3YtLR FvZl JJ8mAn tai3 4g4164 AC0KoY 3yHUqv eUC8mr 84%3D INTERFACE [facility] [address], [place], [address], 11/24/2023 11:29:52 12/08/19 24 02/16/2021 imagi ng/di agnos tic resul t No observ ation record ed. [email or web address] Not Available 11/09 11:04:56 12/08/19 24 12/22/2020 imagi ng/di agnos tic resul t No observ ation record ed. [email or web address] Not Available 11/09 11:05:05 12/13/19 24 12/12/2023 MRI, cervi emmy spine , w/o contr ast Shield s MRI at [facility], [facility] Access ion Number : [id number] Patiizaiah t Name: Valentín New na Medica l Record Number : [id number] Date of : 1970 Date of Exam: 2023 Referr ing Physic markell: Aiden Dotson NEOS [address], [address] [place] [address] , [place] [facility] [address] Exam: MR Cervic al Spine (C-) CPT 68082 Room Descri ption: [place]arton GE Mob 1.5 HISTOR Y: Neck pain and arm pain. COMPAR MANDA: MRI, 2020. FINDIN GS: ALIGNM ENT, VERTEB MARILUZ, MARROW , AND DISCS: Verteb ral body height , curvat ure, and alignm ent are normal . There is no signif icant disc space narrow ing and anteri or osteop hytes are seen at C5-6 and C6-7. Bone marrow signal is normal . 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 ior fossa and cervic omedul courtney juncti [...] onical ly Signed By: Jonelle sheehan MD [address] ([facility]) [address] [place], [address], 12/18/2023 11:18:39 Result Notes Documentation Provider Name and Address Organization Details Recorded Time Xr, Cervical Spine, 2 Or 3 View : [email or web address] ncrypted=tzYeVfrUY1gRewIKb 6g%9VIVleZlqqp4vzmm%2Fg9IQ i9xlKwxT7pOeDSjmsQu8LlLGHf KrdNUY0gOuJEkjd51m4740TO2J tO0qTSxkiDU5el26%3D Not Available [facility] 11/21/2023 14:54:51 Xr, Cervical Spine, 2 Or 3 View : [email or web address] ncrypted=qkJwQnfIS4aDfnTSc 6g%0RYYbnOyzna9fqyy%2Fg9IQ h3fsAdkQ9gOiDNpltUn9BtYQCm YuqXTN2iYyQCmlb90t4247SW5Q qD3iLWctgTM5tq18%3D Not Available [facility] 11/21/2023 14:54:53 Xr, Cervical Spine, 2 Or 3 View : [email or web address] ncrypted=hsQdNknLY9bYbcZMm 6g%6HCJstWjelo9fing%2Fg9IQ g4gnTwnS4sTrDUcdwJq2UsUQKh CzvYJD1vLjSUypu81r7170TB2Z gX9aVAsdgEO5xw16%3D Not Available [facility] 11/24/2023 11:29:51 Xr, Cervical Spine, 2 Or 3 View : [email or web address] ncrypted=kbNhJboLV2nAsfHRy 6g%2FAUrrXfvex6mrxz%2Fg9IQ c7omVlqG3wDcENpedHj5KuELVd FjyOWE2vVqKTejf22z5611UP5S uQ3rBFuhoET2bk94%3D Not Available [facility] 11/24/2023 11:29:53 Mri, Cervical Spine, W/o Contrast : [facility] at [facility], [facility] Accession Number: [id number] Patient Name: Reema New Date of : 1970 Date of Exam: 12-12-2023 Referring Physician: Nishi Dupont, [address] [place] [address] Exam: MR Cervical Spine (C-) CPT 36792 Room Description: [place]arton GE Mob 1.5 HISTORY: Neck pain and [...] Electronically Signed By: Jonelle Dupont PA-C [address] [address] [facility] [address] [facility], [place], [address], [facility] 12/18/2023 11:18:39 Problems Name Problem SNOMED Code Status Onset Date Resolution Date Notes Provider Name and Address Organization Details Recorded Time Cervical myelopathy 746178421 Active 2023 Vladimir Payne MD [address], [place], [address], [facility] 4 14:14:53 Spinal stenosis in cervical region 28659670 Active 2023 Vladimir Payne MD [address], [place], [address], [facility] 4 13:33:33 Intervertebral disc disorder of cervical region with myelopathy 34864816 Active 2023 Vladimir Payne MD [address], [place], [address], [facility] 4 13:33:34 Problem Notes None recorded. Medical Equipment None Reported. Allergies Allergen ID Allergen Name Allergen Category Reaction Reaction Severity Criticality Documentation Date Start Date Code Code System Note Provider Name and Address Organization Details Recorded Time 698584 latex environme nt,medica tion Not available Not available Not available 01/08/2024 56322 91 RxNorm ABDIEL GODINEZ [facility] 4 09:06:08 011755 Valium medicatio n Not available Not available Not available 01/08/2024 38664 2 RxNorm ABDIEL GODINEZ [facility] 4 09:06:14 57507 tramadol hydrochlo ride medicatio n Not available Not available Not available 06/11/20232020 31511 RxNorm ABDIEL GODINEZ [facility] 4 09:06:02 Medications Name Sig Start [...] Address Organization Details Last Updated DateTime 11/21/2023 23094.86 g 27.4 kg/m2 157.48 cm Melinda Carey [facility] 11/21/2023 14:39:34 Date Recorded Body height Body mass index (BMI) Body weight Provider Name and Address Organization Details Last Updated DateTime 12/06/2023 157.48 cm 27.4 kg/m2 49530.86 g NEMO ESCOBAR [facility] 12/06/2023 10:28:59 Date Recorded Body height Body mass index (BMI) Body weight Provider Name and Address Organization Details Last Updated DateTime 01/08/2024 154.94 cm 28.3 kg/m2 99035.86 g ABDIEL COLONYMOUR [facility] 01/08/2024 09:05:58 Date Recorded Body height Body mass index (BMI) Body weight Provider Name and Address Organization Details Last Updated DateTime 02/05/2024 154.94 cm 28.3 kg/m2 07729.86 g Jonathan Walker [facility] 02/05/2024 11:42:26 Social History None recorded. Functional Status None recorded. Mental Status None recorded. Family History Nothing Reported. Medical History No medical history recorded. Gynecological HistoryNo gynecological history recorded. Obstetrics History GPAL:G 0 P 0 0 0 0 Past Encounters Encounter ID Performer Location Encounter Start Date Encounter Closed Date Diagnosis/Indication Diagnosis SNOMED-CT Code Diagnosis ICD10 Code Diagnosis Note [id number] Nishi charles PA-C [place] [address] [place] [address] 11/21/2023 14:21:05 12/14/2023 09:32:23 Neck pain 95351638 M54.2 Radiculopa thy due to cervical spondylosis 0172986393 M47.22 Myelopathy due to cervical spondylosis 3554082274 M47.12 [id number] Vladimir Payne MD [facility] [address] [place] [address] 12/06/2023 09:51:02 12/28/2023 08:15:36 Cervical myelopathy 776596235 G95.9 [id number] Vladimir Payne MD [place] [address] [place] [address] 01/08/2024 08:49:42 01/23/2024 12:15:01 Pre-surgery testing 174650916 Z01.89 Interverte bral disc disorder of cervical region with myelopathy 23200911 M50.00 Spinal [place] nosis in cervical region 82135864 M48.02 [id number] Vladimir Payne MD [place] [address] [place] [address] 02/05/2024 10:53:53 02/25/2024 13:33:20 Intervertebral disc disorder of cervical region with myelopathy 08648734 M50.00 Health Concerns Section Related Observation LastModified by Organization Detai ls LastModified Time None Recorded Concern Status LastModified by Organization Details LastModified Time None Recorded Advance Directives Directive None Recorded Payers Insurance Date Sequence Insurance Name Policy Number Policy Remy Covered Member ID Remy Member ID Guarantor Name 05/12/2024 1 [facility] ([facility] [id number] Reema New [id number] Reema Jesus New 11/20/2023 1 [facility] (MEDICAID HMO) [id number] Reema New [id number] Reema Jesus New 11/21/2023 1 [facility] (MEDICAID HMO) [place] Caina A Virgen [id number] Reema Jesus New Notes Date Note Type [...] extremity pain. She has been seen at [facility] for this. She complains of pain in her neck and radiating pain into her bilateral arms especially her shoulders. She reports pain and numbness into her fingers of both hands, predominantly in the median nerve distribution of each hand, right worse than left. 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 She does report difficulty with her gait [...] triceps, wrist flexors and extensors, finger abduction, gin operator strength, pinch strength. She has a positive Page's. She has normal reflexes. She has positive clonus bilateral ankles. Sensation to light touch is intact throughout axillary, radial, median, ulnar nerve distributions. Normal distal pulses and brisk capillary refill. Peripheral vascular, lymphatic examination, skin, neurological, coordination, sensation are within normal limits unless otherwise noted above.X-rays ordered, obtained and reviewed at [facility] 2 views of the cervical spine demonstrating multilevel degenerative changes noted most significant at C5-6 and C6-7 with disc space narrowing and bridging anterior osteophytesMRI of the C-spine from 2021 at [facility] independently reviewed by me today demonstrates [...] due to the presence of a syrinx.A career center advisor was utilized via [employer] video service which required increased time for interpretation and coordination of patient care today.[employer] speech recognition aquaculture director software was used to create portions of this document. An attempt at proofreading has been made to minimize errors. Please call for corrections. Nishi Dupont PA-C [address] [address] [facility] [address], [place], [address], [facility] [place] [facility] 11/24/2023 11:33:24 4 text/html Austrian only speaking patient entire encounter was completed with the use of a video internal medicine nurse practitioner took over 25 minutes.HPI: 53-year-old female Austrian only speaking patient presents complaining of left [...] After cervical spine MRI. Vladimir Payne MD [address] [place] [address] [address], [place], [address], [facility] 12/06/2023 14:15:07 4 text/html Austrian only speaking patient entire encounter was completed with the use of a video internal medicine nurse practitioner took over 30 minutes.HPI: 53-year-old female Austrian only speaking patient presents complaining of left [...] all done with the use of an internal medicine nurse practitioner and took a significant amount of time. [...] Payne MD [address], [place], [address], [facility] 01/15/2024 13:33:56 4 text/html Austrian only speaking patient entire encounter was completed with the use of a video internal medicine nurse practitioner took over 30 minutes.HPI: 53-year-old female Austrian only speaking patient here in follow-up complaining [...] all done with the use of an internal medicine nurse practitioner and took a significant amount of time. [...] C3-4 ACDF versus corpectomy. Vladimir Payne MD [address] [place] [address], [place], [address], [facility] [place] [facility] 02/12/2024 09:00:47 OBGyn Episode No OBEpisode recorded.
== END 2024-10-20 11:24 | disposition home or self-care (01) ==
LOC: HO.US 11:23
PROVIDERS: PCP Internal Medicine; Visit Provider Internal Medicine
DX: E04.1 Nontoxic single thyroid nodule (principal); R59.0 Localized enlarged lymph nodes
CPT/HCPCS: 76536

== ENCOUNTER → 2024-10-20 11:25 | Outpatient (BNV) | payer OTHER, SELFPAY | PROVIDERS: PCP Internal Medicine; Visit Provider Radiology Diagnostic Radiology | DX: E04.1 Nontoxic single thyroid nodule (principal) | CPT/HCPCS: 76536 ==

== ENCOUNTER 2024-10-29 08:12 | Outpatient (REF) | payer OTHER, SELFPAY ==
--- NOTE | ~2024-10-29 | XR_ITS ---
EXAMINATION: XR WRIST 1-2 VIEWS LEFT HISTORY: M25.532 - Pain in left wrist COMPARISON: There are no prior studies available for comparison. FINDINGS: Four views of the left wrist including a scaphoid view are submitted. Osseous mineralization is normal. There is no fracture or dislocation. The joint spaces are preserved. The soft tissues are unremarkable. XR/XR wrist LT 2V IMPRESSION: Unremarkable examination of the left wrist. Electronically signed by: Pranav Norman MD 10/29/2024 09:38 AM EDT
--- NOTE | ~2024-10-29 | XR_ITS ---
EXAMINATION: XR FOOT 3 OR MORE VIEWS BILATERAL CLINICAL INFORMATION: M79.672 - Pain in left foot COMPARISON: None available. TECHNIQUE: AP, lateral, and oblique views of the right and left foot. FINDINGS: No acute fracture or destructive bone lesion. No dislocation. Joint spaces appear maintained. Prominent plantar calcaneal spurring on the right and minimal on the left. Ossification at the insertion of the Achilles tendon onto the calcaneus of both feet. No radiopaque foreign body. XR/XR Foot Jose Luis 3V IMPRESSION: No acute fracture or destructive bone lesion on the right or left foot. Electronically signed by: Favio Gracia MD 10/29/2024 10:43 AM EDT
== END 2024-10-29 08:13 | disposition home or self-care (01) ==
LOC: HO.XRAY 08:12
PROVIDERS: PCP Internal Medicine; Visit Provider Internal Medicine
DX: E04.1 Nontoxic single thyroid nodule (principal); R10.11 Right upper quadrant pain; M25.532 Pain in left wrist; M79.671 Pain in right foot; M79.672 Pain in left foot; F33.2 Major depressive disorder, recurrent severe without psychotic features; Z13.31 Encounter for screening for depression; Z13.39 Encounter for screening examination for other mental health and behavioral disorders
CPT/HCPCS: 73100; 73630; 96127

== ENCOUNTER 2024-10-29 08:12 | Outpatient (AMB) | payer OTHER, SELFPAY ==
--- NOTE | 2024-10-29 08:16 | A.OFFPC_ITS ---
Vital Signs 10/29/24 08:17 Height 5 ft 2 in Weight 157 lb BMI 28.7 BP 128/82 Blood Pressure Location Lt brachial Position Sitting Intake Visit Reasons: depression - see comments Intake Note: Patient here for a follow up depression Oven Heater Required: No Accompanied by: Spouse Allergies oxycodone (Percocet) Allergy (Intermediate, Verified 10/29/24 08:35) rash sulindac Allergy (Intermediate, Verified 10/29/24 08:35) Abdominal Pain tramadol Allergy (Intermediate, Verified 10/29/24 08:35) Abdominal Pain diazepam (From VALIUM) Allergy (Mild, Verified 10/29/24 08:35) HIVES fluoxetine (From PROZAC) Allergy (Mild, Verified 10/29/24 08:35) HIVES zolpidem Adverse Reaction (Intermediate, Verified 10/29/24 08:40) headaches, neck pain Medication List - Last Reconciled 10/29/24 by Vandana Buenrostro MD cetirizine (Allergy Relief (cetirizine)) 10 mg PO DAILY PRN 90 days zolpidem 5 mg PO BEDTIME PRN 30 days Tobacco use date assessed: 05/29/24 Dental Screening Dental Screen Date: 05/29/24 HPI HPI Comments History of Present Illness Details The patient is a 54-year-old female presenting with multiple complaints including neck pain, wrist pain, and abdominal pain. The patient has a history of allergic reactions to medications, experiencing rash, stomach pain, and hives. She suffers from severe depression, with a PHQ-9 score of 20, and has not found effective medication management. A thyroid nodule was biopsied and confirmed benign, measuring less than 1 cm, with no further imaging required. The patient reports neck pain and headaches, worsened by certain medications. She also experiences abdominal pain for about a month, with diarrhea and occasional nausea. Bilateral foot pain is noted, with plans for x-rays. Folliculitis in the lower pelvic area is present, and a cream will be prescribed. [facility] Medical History Cervical myelopathy Syrinx of spinal cord Goiter Polyarthralgia Pure hypercholesterolemia Fibromyalgia Osteoarthritis, hip, bilateral Physical exam Overweight Neck pain Hip pain, bilateral Surgical History Hx of colonoscopy History of esophagogastroduodenoscopy (EGD) H/O skin graft S/P TAMERA (total abdominal hysterectomy) Osteochondroma of femur Family History Father Stroke Mother Diabetes mellitus Social History Housing: Apartment Alcohol intake: never Patient Tobacco Use Status: Never used Tobacco e-Cigarette/Vaping Use: Never Used Second Hand Smoke Exposure: No service: No Current occupational status: unemployed Cognitive needs: No Hearing needs: No Vision needs: No Questionnaire PHQ-9 Over the last 2 weeks, how often have you been bothered by any of the following problems? 1. Little interest or pleasure in doing things: more than half the days 2. Feeling down, depressed, or hopeless: more than half the days 3. Trouble falling or staying asleep, or sleeping too much: nearly every day 4. Feeling tired or having little energy: several days 5. Poor appetite or overeating: more than half the days 6. Feeling bad about yourself - or that you are a failure or have let yourself or your family down: nearly every day 7. Trouble concentrating on things, such as reading the newspaper or watching television: more than half the days 8. Moving or speaking so slowly that other people could have noticed. Or the opposite - being so fidgety or restless that you have been moving around a lot more than usual: more than half the days 9. Thoughts that you would be better off or of hurting yourself in some way: nearly every day Total score: 20 Depression Screening Interpretation: Positive Depression Screening Follow-up: Existing condition and Follow-up Visit Requested Depression Screening Done: Yes 56527 - PHQ-9 Billing: Yes Source: Developed by Drs. Pranav Singh, Kiesha Temple, Leon Rodriguez and colleagues, with an educational vijay from [employer]. Thrive Questionnaire Date Thrive assessed: 10/29/24 I am a: Patient What is your living situation today?: I choose not to answer this question Within the past 12 months, did the food you bought not last and you didn't have the money to get more?: Sometimes True Within the past 12 months, did you worry whether your food would run out before you got money to buy more?: Sometimes True Do you have trouble paying for medicines?: No Do you have trouble getting transportation to medical appointments?: No Do you have trouble paying your heating and electricity bill?: No Do you have trouble taking care of your child, family member or friend?: Yes Do you have trouble with day-to-day activities such as bathing, preparing meals, shopping, managing finances, etc.?: Yes Are you currently unemployed and looking for a job?: Yes Are you interested in more education?: Yes Please select the resources that you would like help with: Food Currently or been in a relationship where the following occur: I choose not to answer THRIVE Score: 2 AUDIT C Alcohol Use Questionnaire (AUDIT-C) 1. How often do you have a drink containing alcohol?: Never Total Score: 0 Score Reviewed/Action Taken: No LOREE-7 AMB Questionnaire LOREE-7 Date LOREE - 7 assessed: 10/29/24 Feeling nervous, anxious, or on edge: 2 = More than half the days Not being able to stop or control worryin = More than half the days Worrying too much about different things: 2 = More than half the days Trouble relaxin = More than half the days Being so restless that it is hard to sit still: 3 = Nearly every day Becoming easily annoyed or irritable: 2 = More than half the days Feeling afraid as if something awful might happen: 3 = Nearly every day Total LOREE-7 score (0-4 normal; 5-9 mild; 10-14 moderate; 15-21 severe): 16 Source: Developed by Drs. Pranav Singh, Kiesha Temple, Leon Rodriguez and colleagues, with an educational vijay from [employer]. LOREE-7 Assessment Billing LOREE-7 Assessment Tool: LOREE-7 Assessment 59222 Review of Systems Const All systems reviewed & are unremarkable except as noted in HPI and below Card Denies chest pain at rest, Denies chest pain with activity, Denies edema, Denies irregular heart rhythm, Denies claudication, Denies dyspnea, Denies dyspnea on exertion, Denies orthopnea, Denies paroxysmal nocturnal dyspnea and Denies slow heart rate Resp Denies cough, Denies dyspnea and Denies dyspnea on exertion GI Denies abdominal pain, Denies change in bowel habits, Denies excessive flatus, Denies nausea and Denies vomiting Denies urinary incontinence, Denies urinary hesitancy and Denies urinary urgency Musc Denies abnormal gait, Denies atrophy, Denies deformity and Denies limited range of motion Skin/Breast Denies bleeding lesions, Denies changing lesions and Denies rash Neuro Denies abnormal gait and Denies lack of coordination Physical exam (Primary Care) Vital Signs: Last Vital Signs BP 128/82 10/29/24 08:17 BMI result Body Mass Index 28.7 Tobacco/Smoking Status: Tobacco use Status Tobacco use date assessed 05/29/24 10/29/24 08:21 Patient Tobacco Use Status Never used Tobacco 10/29/24 08:21 Tobacco use type 10/29/24 08:25 e-Cigarette/Vaping Use Never Used 10/29/24 08:21 PHQ-9: PHQ-9 Score PHQ-9: Total score 10/29/24 08:40 Depression Screening Interpretation: Positive Depression Screening Follow-up: Existing condition and Follow-up Visit Requested Thrive Assessment: Date of Thrive Assessment Date Thrive assessed 10/29/24 10/29/24 08:21 Currently or been in a relationship where the following occur: I choose not to answer Neck Neck: Yes normal visual inspection and Yes supple Resp Effort & Inspection: normal respiratory effort Auscultation: clear to auscultation bilaterally Cardio Jugular venous distension: no JVD Rate: regular rate Rhythm: regular rhythm Heart sounds: S1 normal heart sound present and S2 normal heart sound present Extrem General: Yes full ROM Coding Level of Care Code Est Pt Level 4 (29501) Complex EM visit Add On G2211 Diagnoses Thyroid nodule E04.1 Right upper quadrant abdominal pain R10.11 Left wrist pain M25.532 Pain in both feet M79.671; M79.672 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.2 Additional Codes LOREE-7 Assessment Billing - LOREE-7 Assessment Tool: LOREE-7 Assessment 32840 ([id number]) PHQ-9 - 92268 - PHQ-9 Billing: Yes ([id number]) Time Spent (min) 23 Assessment & Plan Assessment & Plan (1) Thyroid nodule: Code(s): E04.1 - Nontoxic single thyroid nodule Category: Medical (2) Right upper quadrant abdominal pain: Code(s): R10.11 - Right upper quadrant pain Category: Medical (3) Left wrist pain: Code(s): M25.532 - Pain in left wrist Category: Medical (4) Pain in both feet: Code(s): M79.671 - Pain in right foot; M79.672 - Pain in left foot Category: Medical (5) Severe recurrent major depression without psychotic features: Code(s): F33.2 - Major depressive disorder, recurrent severe without psychotic features Category: Medical Plan The patient will avoid medications causing allergic reactions, such as rash and hives. Severe depression will be further evaluated, with potential treatment adjustments due to the PHQ-9 score of 20. Declines treatment for now. The benign thyroid nodule does not require further imaging, but thyroid function tests will be performed. Neck pain and headaches will be managed by reviewing medications and considering alternatives. Abdominal pain, diarrhea, and nausea will be monitored, with dietary adjustments recommended. Bilateral foot pain will be evaluated with x-rays. A topical cream will be prescribed for folliculitis. Patient was informed and verbally consented to the use of an ambient scribe for clinic note documentation during this visit. Orders: Orders Thyroid Stimulating Hormone Today E04.1 - Nontoxic single thyroid nodule Comprehensive Met. Panel Today R10.11 - Right upper quadrant pain Lipid Panel 7 Months E78.00 - Pure hypercholesterolemia, unspecified, E78.5 - Hyperlipidemia, unspecified Comprehensive Lamar. Panel Fast 7 Months E78.00 - Pure hypercholesterolemia, unspecified XR foot RT 2V Today M25.50 - Pain in unspecified joint XR wrist LT 2V Today M25.532 - Pain in left wrist US abdomen limited Today R10.11 - Right upper quadrant pain Free T4 (Free Thyroxine) Today E04.1 - Nontoxic single thyroid nodule
[2024-10-29 08:17] VITALS: BP 128/82; BMI 28.7
--- OUTSIDE RECORDS SUMMARY | 2024-10-29 08:21 | XMS_ITS | Clinical Summary ---
Author Organization [facility] Address [address] [address] Phone Care Team Providers Care [employer] Name Role Phone Vandana Bragg MD Primary [...] have apparently an ultrasound November 2021 at [facility]. I do not have the size [...] with a working camera? Not on file Comments Unknown Sex and Gender Information Value Date Recorded Sex Assigned at Not on file Legal Sex Female 7:11 PM EST Gender Identity Not on file Sexual Orientation [...] LIPID PANEL 1969 DEPRESSION SCREENING 1981 HEPATITIS C SCREENING 1987 HIV ONE-TIME SCREENING (18-6 5 YEARS) 1987 SCREENING FOR DIABETES 2004 MAMMOGRAM 2009 COLOGUARD 2014 COLONOSCOPY 2014 COLORECTAL CANCER SCREENING 2014 FIT TEST 2014 FOBT 2014 SIGMOIDOSCOPY 2014 VIRTUAL COLONOSCOPY 2014 PNEUMOCOCCAL VACCINES (50+ y ears) (1 of 1 - PCV) 2019 ZOSTER VACCINES (1 of 2) 2019 COVID-19 VACCINE (1 - 2023-2 5 season) 2023 SMOKING STATUS SCREENING (On [...] age to complete this topic MENINGOCOCCAL VACCINES (B) Aged Out N o longer eligible based on patient's age to complete this topic Medical Devices Not on file Insurance Care Teams [employer] Relationship Specialty Start Date End Date Vandana Bragg MD [address] [place] [address] PCP - General Internal Medicine 11/14/22 Additional Source Comments The information contained in this document represents components of the legal health record. It is not the complete legal health record.[facility]
--- OUTSIDE RECORDS SUMMARY | 2024-10-29 08:22 | XMS_ITS | Data Portability ---
Author Organization [facility] [place] [facility] Surgeons [facility], [facility] Address [address] [place] [address] Care Team Providers Care Palliative Nurse Name Role Phone PIPER GEIGER Primary Care Provider [phone] Assessment No assessment recorded. Plan of Treatment Reminders Order Date Submit Date Provider Last Modified By Organization Details Last Modified Time Details Appointments None recorded. Lab vitamin D panel, serum or plasma 2023 [employer] 14 [facility] (Centralized Electronic Ordering - All Locations), Patient Can Go To The Location Of Their Choice, [id number] 4 16:17:56 Referral None recorded. Procedures None recorded. Surgeries None recorded. Imaging XR, cervical spine, 2 or 3 view - 324. 2 views of C-spine 2023 024 [email or web address] [facility], [address], [place], [address], 4 09:32:23 MRI, cervical spine, w/o contrast - Eval:?cervi emmy myelopathy 2023 024 [facility] ([facility]), [address], [place], [address], 4 09:32:23 Medication Orders None recorded. Patient [...] um and D. Emanuel martinez [place]: The [facility] Press . 2. Edgar jeter MF, Luly donovan [place], [place] off-F dee dee i TYLER, et al. Evalu ation , treat ment, and preve ntion of vitam in D defic iency : an Endoc rine Socie ty clini emmy pract ice guide line. JCEM. 2010; 96(7) :1911 -30. Not Available [facility] ([facility]) [address] [facility] [facility], [place], [address], 01/09/2024 06:05:20 11/21/19 24 11/21/2023 XR, cervi emmy spine , 2 or 3 view http:/ [email or web address] ?Encry pted=s hAaTro YD8dLq bEUv6g %2BXZw aYqtaq 0bqfl% 2Fg9IQ a4ajBk vP9nXo QUaueC m3YtLR FvZlgJ JJ8mAn HZtai3 0w3891 AC0KoY 3yHUqv eUC8mr 84%3D INTERFACE [facility] [address] [facility] [address], [place], [address], 11/21/2023 14:54:50 11/21/19 24 11/21/2023 XR, cervi emmy spine , 2 or 3 view http:/ [email or web address] ?Encry pted=s hAaTro YD8dLq bEUv6g %2BXZw aYqtaq 0bqfl% 2Fg9IQ a4ajBk vP9nXo QUaueC m3YtLR FvZlgJ JJ8mAn HZtai3 0b5652 AC0KoY 3yHUqv eUC8mr 84%3D INTERFACE [facility] [address], [place], [address], 11/21/2023 14:54:52 11/24/19 24 11/21/2023 XR, cervi emmy spine , 2 or 3 view http:/ [email or web address] ?Encry pted=s hAaTro YD8dLq bEUv6g %2BXZw aYqtaq 0bqfl% 2Fg9IQ a4ajBk vP9nXo QUaueC m3YtLR FvZlgJ JJ8Coram HZtai3 6w7295 AC0KoY 3yHUqv eUC8mr 84%3D INTERFACE [facility] [address], [place], [address], 11/24/2023 11:29:51 11/24/19 24 11/21/2023 XR, cervi emmy spine , 2 or 3 view http:/ [email or web address] ?Encry pted=s hAaTro YD8dLq bEUv6g %2BXZw aYqtaq 0bqfl% 2Fg9IQ a4ajBk vP9nXo QUaueC m3YtLR FvZl JJ8mAn tai3 1n1370 AC0KoY 3yHUqv eUC8mr 84%3D INTERFACE [facility] [address], [place], [address], 11/24/2023 11:29:52 12/08/19 24 02/16/2021 imagi ng/di agnos tic resul t No observ ation record ed. [email or web address] Not Available 11/09 11:04:56 12/08/19 24 12/22/2020 imagi ng/di agnos tic resul t No observ ation record ed. [email or web address] Not Available 11/09 11:05:05 12/13/19 24 12/12/2023 MRI, cervi emmy spine , w/o contr ast Shield s MRI at [facility], [facility] Access ion Number : [id number] Patiizaiah t Name: Valentín New na Medica l Record Number : [id number] Date of : 1970 Date of Exam: 2023 Referr ing Physic markell: Aiden Dotson NEOS [address], [address] [place] [address] , [place] [facility] [id number] Exam: MR Cervic al Spine (C-) CPT 32518 Room Descri ption: [place] GE Mob 1.5 HISTOR Y: Neck pain and arm pain. COMPAR MANDA: MRI, 2020. FINDIN GS: ALIGNM ENT, VERTEB MARILUZ, MARROW , AND DISCS: Verteb ral body height , curvat ure, and alignm ent are normal . There is no signif icant disc space narrow ing and anteri or osteop hytes are seen at C5-6 and C6-7. Bone marrow signal is normal . MANAGER RECRUITING IOR FOSSA AND CORD: The visual ized book or script editor ior fossa and cervic omedul courtney juncti [...] onical ly Signed By: Jonelle sheehan MD [address] ([facility]) [address] [place], [address], 12/18/2023 11:18:39 Result Notes Documentation Provider Name and Address Organization Details Recorded Time Xr, Cervical Spine, 2 Or 3 View : [email or web address]?E ncrypted=axZmUjgPJ0rVdmDUj 6g%1AYRgsWarbx4qlux%2Fg9IQ k1buUedY5qFuHFxkeEg4YzGECw TjzZOF8eZcMOtgg01j5347EQ8A fT3dYVgniLM8ar52%3D Not Available [facility] 11/21/2023 14:54:51 Xr, Cervical Spine, 2 Or 3 View : [email or web address]?E ncrypted=fdRoOtlUU5lOvoKEt 6g%1TCNenCcvxo7yvoa%2Fg9IQ i2jsJxuE4fSzZQmmeKl8WyVSEh FqaBST2cXxCQdzk63z5539CT6L tC1hQWhgvRV8aj05%3D Not Available [facility] 11/21/2023 14:54:53 Xr, Cervical Spine, 2 Or 3 View : [email or web address]?E ncrypted=zuReUmoFU1wJhsBWw 6g%5PIOwqTkbde3pfwq%2Fg9IQ u3wuDtnY5fKaHQzaxOy0VqFGSk SkzJFG4dIaJEjsw09i0508ZR4Y pR1iWSglqAQ8ea02%3D Not Available [facility] 11/24/2023 11:29:51 Xr, Cervical Spine, 2 Or 3 View : [email or web address]?E ncrypted=baDtAboSW7tKytJIw 6g%5XVHgaCdgjd4diaq%2Fg9IQ z0doJjvA6hCtGTwhhFg4MpAQWp YptERF1aBkDNppl47o8409XN4M rV4cIQpxhBQ8oi65%3D Not Available [facility] 11/24/2023 11:29:53 Mri, Cervical Spine, W/o Contrast : [facility] at [facility], [facility] Accession Number: [id number] Patient Name: Reema New Date of : 1970 Date of Exam: 12-12-2023 Referring Physician: Nishi Dupont, [address] [place] [address] Exam: MR Cervical Spine (C-) CPT 50008 Room Description: [place] GE Mob 1.5 HISTORY: Neck pain and [...] Electronically Signed By: Jonelle Dupont PA-C [address] [facility], [place], [address], [facility] [place] [facility] 12/18/2023 11:18:39 Problems Name Problem SNOMED Code Status Onset Date Resolution Date Notes Provider Name and Address Organization Details Recorded Time Cervical myelopathy 151291495 Active 2023 Vladimir Payne MD [address], [place], [address], [facility] 4 14:14:53 Spinal stenosis in cervical region 13605060 Active 2023 Vladimir Payne MD [address], [place], [address], [facility] 4 13:33:33 Intervertebral disc disorder of cervical region with myelopathy 74491501 Active 2023 Vladimir Payne MD [address], [place], [address], [facility] 4 13:33:34 Problem Notes None recorded. Medical Equipment None Reported. Allergies Allergen ID Allergen Name Allergen Category Reaction Reaction Severity Criticality Documentation Date Start Date Code Code System Note Provider Name and Address Organization Details Recorded Time 070316 latex environme nt,medica tion Not available Not available Not available 01/08/2024 07249 91 RxNorm ABDIEL GODINEZ [facility] 4 09:06:08 315221 Valium medicatio n Not available Not available Not available 01/08/2024 21302 2 RxNorm ABDIEL GODINEZ [facility] 4 09:06:14 11222 tramadol hydrochlo ride medicatio n Not available Not available Not available 06/11/20232020 07535 RxNorm ABDIEL GODINEZ [facility] 4 09:06:02 Medications Name Sig Start Date [...] Address Organization Details Last Updated DateTime 11/21/2023 07131.86 g 27.4 kg/m2 157.48 cm Melinda Carey [facility] 11/21/2023 14:39:34 Date Recorded Body height Body mass index (BMI) Body weight Provider Name and Address Organization Details Last Updated DateTime 12/06/2023 157.48 cm 27.4 kg/m2 26596.86 g NEMO ESCOBAR [facility] 12/06/2023 10:28:59 Date Recorded Body height Body mass index (BMI) Body weight Provider Name and Address Organization Details Last Updated DateTime 01/08/2024 154.94 cm 28.3 kg/m2 75135.86 g ABDIEL COLONYMOUR [facility] 01/08/2024 09:05:58 Date Recorded Body height Body mass index (BMI) Body weight Provider Name and Address Organization Details Last Updated DateTime 02/05/2024 154.94 cm 28.3 kg/m2 24068.86 g Jonathan Walker [facility] 02/05/2024 11:42:26 Social History None recorded. Functional Status None recorded. Mental Status None recorded. Family History Nothing Reported. Medical History No medical history recorded. Gynecological HistoryNo gynecological history recorded. Obstetrics History GPAL:G 0 P 0 0 0 0 Past Encounters Encounter ID Performer Location Encounter Start Date Encounter Closed Date Diagnosis/Indication Diagnosis SNOMED-CT Code Diagnosis ICD10 Code Diagnosis Note [id number] Nishi charles PA-C [facility] [address] [place] [address] 11/21/2023 14:21:05 12/14/2023 09:32:23 Neck pain 28070434 M54.2 Radiculopa thy due to cervical spondylosis 9383927029 M47.22 Myelopathy due to cervical spondylosis 4847165193 M47.12 [id number] Vladimir Payne MD [facility] [address] [place] [address] 12/06/2023 09:51:02 12/28/2023 08:15:36 Cervical myelopathy 660129650 G95.9 [id number] Vladimir Payne MD [facility] [address] [place] [address] 01/08/2024 08:49:42 01/23/2024 12:15:01 Pre-surgery testing 683832843 Z01.89 Interverte bral disc disorder of cervical region with myelopathy 83062539 M50.00 Spinal [place] nosis in cervical region 53765142 M48.02 [id number] Vladimir Payne MD [facility] [address] [place] [address] 02/05/2024 10:53:53 02/25/2024 13:33:20 Intervertebral disc disorder of cervical region with myelopathy 13027065 M50.00 Health Concerns Section Related Observation LastModified by Organization Detai ls LastModified Time None Recorded Concern Status LastModified by Organization Details LastModified Time None Recorded Advance Directives Directive None Recorded Payers Insurance Date Sequence Insurance Name Policy Number Policy Remy Covered Member ID Remy Member ID Guarantor Name 05/12/2024 1 [facility] [id number] Reema New [id number] Reema Jesus New 11/20/2023 1 [facility] (MEDICAID HMO) [id number] Reema New [id number] Reema Jesus New 11/21/2023 1 [facility] (MEDICAID HMO) BASIL Caina A Virgen [id number] Reema Jesus New Notes Date Note Type [...] extremity pain. She has been seen at [facility] for this. She complains of pain in her neck and radiating pain into her bilateral arms especially her shoulders. She reports pain and numbness into her fingers of both hands, predominantly in the median nerve distribution of each hand, right worse than left. Treatment so far has consisted of, physical therapy and care director. She does report difficulty with her gait [...] triceps, wrist flexors and extensors, finger abduction, torch solderer strength, pinch strength. She has a positive Page's. She has normal reflexes. She has positive clonus bilateral ankles. Sensation to light touch is intact throughout axillary, radial, median, ulnar nerve distributions. Normal distal pulses and brisk capillary refill. Peripheral vascular, lymphatic examination, skin, neurological, coordination, sensation are within normal limits unless otherwise noted above.X-rays ordered, obtained and reviewed at [facility] 2 views of the cervical spine demonstrating multilevel degenerative changes noted most significant at C5-6 and C6-7 with disc space narrowing and bridging anterior osteophytesMRI of the C-spine from 2021 at [facility] independently reviewed by me today [...] due to the presence of a syrinx.A supervisor customer services was utilized via [facility] video service which required increased time for interpretation and coordination of patient care today.[employer] speech recognition superintendent plant software was used to create portions of this document. An attempt at proofreading has been made to minimize errors. Please call for corrections. Nishi Dupont PA-C [address], [place], [address], [facility] [place] [facility] 11/24/2023 11:33:24 4 text/html Kuwaiti only speaking patient entire encounter was completed with the use of a video assurance senior manager insurance took over 25 minutes.HPI: 53-year-old female Kuwaiti only speaking patient presents complaining of left [...] After cervical spine MRI. Vladimir Payne MD [address] [place] [address] [address], [place], [address], [facility] [place] [facility] 12/06/2023 14:15:07 4 text/html Kuwaiti only speaking patient entire encounter was completed with the use of a video assurance senior manager insurance took over 30 minutes.HPI: 53-year-old female Kuwaiti only speaking patient presents complaining of left [...] all done with the use of an assurance senior manager insurance and took a significant amount of time. [...] Payne MD [address], [place], [address], [facility] [place] [facility] 01/15/2024 13:33:56 4 text/html Kuwaiti only speaking patient entire encounter was completed with the use of a video assurance senior manager insurance took over 30 minutes.HPI: 53-year-old female Kuwaiti only speaking patient here in follow-up complaining [...] all done with the use of an assurance senior manager insurance and took a significant amount of time. [...] C3-4 ACDF versus corpectomy. Vladimir Payne MD [address] [place] [address], [place], [address], [facility] [place] [facility] 02/12/2024 09:00:47 OBGyn Episode No OBEpisode recorded.
== END 2024-10-29 08:48 | disposition home or self-care (01) ==
LOC: HO.HMCH 08:13
PROVIDERS: PCP Internal Medicine; Visit Provider Internal Medicine
DX: R10.11 Right upper quadrant pain (principal); E04.1 Nontoxic single thyroid nodule; F33.2 Major depressive disorder, recurrent severe without psychotic features; M25.532 Pain in left wrist; M79.671 Pain in right foot; M79.672 Pain in left foot

== ENCOUNTER → 2024-10-29 09:12 | Outpatient (BNV) | payer OTHER, SELFPAY | PROVIDERS: PCP Internal Medicine; Visit Provider Radiology Diagnostic Radiology | DX: M25.532 Pain in left wrist (principal); M61.5 Other ossification of muscle | CPT/HCPCS: 73100; 73630 ==

== ENCOUNTER 2025-01-02 08:40 | Outpatient (REF) | payer OTHER, SELFPAY ==
--- NOTE | ~2025-01-02 | US_ITS ---
CLINICAL HISTORY: R10.11 - Right upper quadrant pain US abdomen limited with duplex and color Doppler Comparison: None Findings: Visualized pancreas is normal. Tail obscured by bowel gas. Liver is normal in size and mildly echogenic throughout. Right lobe length 14.9 cm. No focal hepatic masses. Common duct 5.0 mm diameter. Gallbladder is physiologically distended. No gallstones, sludge or wall abnormalities. 3 mm gallbladder polyp. No pericholecystic fluid. No sonographic Ziegler sign. Main portal vein antegrade. Right kidney measures, 11.1 cm in length. Normal cortical width and echotexture. No hydronephrosis calculus or mass. Impression: 1. Hepatic steatosis. 2. 3 mm gallbladder polyp. 3. No gallstones or evidence of cholecystitis. This document has been electronically signed by: Dennis Aiken MD on 01/03/2025 10:19:48
--- OUTSIDE RECORDS SUMMARY | 2025-01-02 09:04 | XMS_ITS | Clinical Summary ---
Author Organization [facility] Address [address] [address] Phone Care Team Providers Care Agriscience Teacher Name Role Phone Vandana Bragg MD Primary [...] have apparently an ultrasound November 2021 at [facility]. I do not have the size of [...] (1 of 2) 2019 INFLUENZA VACCINE (#1) 2024 COVID-19 VACCINE (1 - 2023-2 5 season) 2024 SMOKING STATUS SCREENING (On ce After 26 [...] topic Medical Devices Not on file Insurance [facility] Care Teams Agriscience Teacher Relationship Specialty Start Date End Date Vandana Bragg MD [address] [place] [address] PCP - General Internal Medicine 11/14/22 Additional Source Comments The information contained in this document represents components of the legal health record. It is not the complete legal health record.[facility]
== END 2025-01-02 08:41 | disposition home or self-care (01) ==
LOC: HO.US 08:40
PROVIDERS: PCP Internal Medicine; Visit Provider Internal Medicine
DX: R10.11 Right upper quadrant pain (principal)
CPT/HCPCS: 76705

== ENCOUNTER → 2025-01-02 08:42 | Outpatient (BNV) | payer OTHER, SELFPAY | PROVIDERS: PCP Internal Medicine; Visit Provider Radiology Diagnostic Radiology | DX: K82.4 Cholesterolosis of gallbladder (principal); K76.0 Fatty (change of) liver, not elsewhere classified | CPT/HCPCS: 76705 ==

== ENCOUNTER 2025-02-05 09:20 | Outpatient (AMB) | payer OTHER, SELFPAY ==
--- NOTE | 2025-02-05 09:22 | A.OFFVIS_ITS ---
Vital Signs 02/05/25 09:35 Height 5 ft 2 in Weight 153 lb BMI 28.0 BP 146/83 H Blood Pressure Location Rt brachial Position Sitting Pulse 71 Intake Visit Reasons: Cholesterolosis of gallbladder Intake Note: This patinet presents for an assessment for cholesterolosis of the gallbladder. Pt c/o; occasional RUQ pain, reports occasional nausea, no vomiting. Agricultural Science Professor Required: Yes Agricultural Science Professor Services: Agricultural Science Professor Present Agricultural Science Professor Name: Aga Information Interpreted: non-clinical & clinical Accompanied by: Self / Same As Patient Allergies oxycodone (Percocet) Allergy (Intermediate, Verified 02/05/25 09:36) rash sulindac Allergy (Intermediate, Verified 02/05/25 09:36) Abdominal Pain tramadol Allergy (Intermediate, Verified 02/05/25 09:36) Abdominal Pain diazepam (From VALIUM) Allergy (Mild, Verified 02/05/25 09:36) HIVES fluoxetine (From PROZAC) Allergy (Mild, Verified 02/05/25 09:36) HIVES zolpidem Adverse Reaction (Intermediate, Verified 02/05/25 09:36) headaches, neck pain Medication List - Last Reviewed 02/05/25 by JORGE Henderson cetirizine (Allergy Relief (cetirizine)) 10 mg PO DAILY PRN 90 days zolpidem 5 mg PO BEDTIME PRN 30 days HPI HPI Cholesterolosis of gallbladder: Details: [age] year old female referred for a gallbladder polyp. Apparently had complained of pain in the area of the lower ribcage as well as the right side of the abdomen. She had an ultrasound of the abdomen done last December, showing a 3 mm gallbladder polyp. There were no gallstones . She denies any GI complaints. She says she had been told she has a ?fatty liver?. PFSH Medical History Cervical myelopathy Syrinx of spinal cord Goiter Polyarthralgia Pure hypercholesterolemia Fibromyalgia Osteoarthritis, hip, bilateral Physical exam Overweight Neck pain Hip pain, bilateral Surgical History Hx of colonoscopy History of esophagogastroduodenoscopy (EGD) H/O skin graft S/P TAMERA (total abdominal hysterectomy) Osteochondroma of femur Family History Father Stroke Mother Diabetes mellitus Social History Housing: Apartment Alcohol intake: never Patient Tobacco Use Status: Never used Tobacco e-Cigarette/Vaping Use: Never Used Second Hand Smoke Exposure: No service: No Current occupational status: unemployed Cognitive needs: No Hearing needs: No Vision needs: No Review of Systems Const Denies chills and Denies fever(s) Card Denies chest pain, Denies dyspnea and Denies dyspnea on exertion Resp Denies cough, Denies dyspnea and Denies dyspnea on exertion GI Denies hematochezia and Denies change in bowel habits Denies hematuria Musc Denies back pain and Denies limited range of motion Neuro Denies focal weakness and Denies convulsions Psych Denies depression and Denies mood swings Physical Exam Const General: comfortable and no acute distress Orientation/consciousness: patient oriented x3 Neck Neck: Yes no lymphadenopathy Chest Other: She has point tenderness along her lower most ribs on the right side anteriorly Resp Auscultation: clear to auscultation bilaterally Cardio Rhythm: regular rhythm GI Palpation (GI): Soft to palpation, nontender and no guarding Neuro General: patient oriented x3 Assessment & Plan Assessment & Plan (1) Gallbladder polyp: Code(s): K82.4 - Cholesterolosis of gallbladder Category: Medical Plan: She has a 3 mm gallbladder polyp as described above. It is unusual for this to cause any right upper quadrant pain. No surgical indication is necessary as this time this may be followed with a an ultrasound next year and if this is 1 cm in size, cholecystectomy may be recommended. She does have significant point tenderness on the ribcage consistent with costochondritis. This may explain her complaints of pain on this area as well. I explained to her that she can take ibuprofen for this. She is welcome to come back to the office as needed. Coding Level of Care Code New Pt Level 3 (06161) Diagnoses Gallbladder polyp K82.4
[2025-02-05 09:35] VITALS: BP 146/83; PULSE 71; BMI 28.0
--- OUTSIDE RECORDS SUMMARY | 2025-02-05 10:43 | XMS_ITS | Data Portability ---
Author Organization [facility] [place] [facility], [facility] Address [address] [place] [address] Care Team Providers Care Channel Process Plant Operator Name Role Phone PIPER GEIGER Primary Care Provider Assessment No assessment recorded. Plan of Treatment Reminders Order Date Submit Date Provider Last Modified By Organization Details Last Modified Time Details Appointments None recorded. Lab vitamin D panel, serum or plasma 2023 FoundValue 14 [facility] (Centralized Electronic Ordering - All Locations), Patient Can Go To The Location Of Their Choice, [address] 4 16:17:56 Referral None recorded. Procedures None recorded. Surgeries None recorded. Imaging XR, cervical spine, 2 or 3 view - 324. 2 views of C-spine 2023 024 [email or web address] [facility], [address], [address], [place], [address], 4 09:32:23 MRI, cervical spine, w/o contrast - Eval:?cervi emmy myelopathy 2023 024 [email or web address] [facility] ([facility]), [address], [place], [address], 4 09:32:23 Medication Orders None recorded. Patient [...] um and D. Emanuel martinez [place]: The [facility] Press . 2. Edgar jeter MF, Luly donovan [place], [place] off-F dee dee i TYLER, et al. Evalu ation , treat ment, and preve ntion of vitam in D defic iency : an Endoc rine Socie ty clini emmy pract ice guide line. JCEM. 2010; 96(7) :1911 -30. Not Available [facility] ([facility]) [address] [facility], [place], [address], 01/09/2024 06:05:20 11/21/19 24 11/21/2023 XR, cervi emmy spine , 2 or 3 view http:/ [email or web address] ?Encry pted=s hAaTro YD8dLq bEUv6g %2BXZw aYqtaq 0bqfl% 2Fg9IQ a4ajBk vP9nXo QUaueC m3YtLR FvZlgJ JJ8mAn HZtai3 9c3504 AC0KoY 3yHUqv eUC8mr 84%3D INTERFACE [facility] [address] [facility] [address], [place], [address], 11/21/2023 14:54:50 11/21/19 24 11/21/2023 XR, cervi emmy spine , 2 or 3 view http:/ [email or web address] ?Encry pted=s hAaTro YD8dLq bEUv6g %2BXZw aYqtaq 0bqfl% 2Fg9IQ a4ajBk vP9nXo QUaueC m3YtLR FvZlgJ JJ8mAn HZtai3 5n1147 AC0KoY 3yHUqv eUC8mr 84%3D INTERFACE [facility] [address], [place], [address], 11/21/2023 14:54:52 11/24/19 24 11/21/2023 XR, cervi emmy spine , 2 or 3 view http:/ [email or web address] ?Encry pted=s hAaTro YD8dLq bEUv6g %2BXZw aYqtaq 0bqfl% 2Fg9IQ a4ajBk vP9nXo QUaueC m3YtLR FvZlgJ JJ8Rulo HZtai3 7h1196 AC0KoY 3yHUqv eUC8mr 84%3D INTERFACE [facility] [address], [place], [address], 11/24/2023 11:29:51 11/24/19 24 11/21/2023 XR, cervi emmy spine , 2 or 3 view http:/ [email or web address] ?Encry pted=s hAaTro YD8dLq bEUv6g %2BXZw aYqtaq 0bqfl% 2Fg9IQ a4ajBk vP9nXo QUaueC m3YtLR FvZl JJ8mAn tai3 7e2902 AC0KoY 3yHUqv eUC8mr 84%3D INTERFACE [facility] [address], [place], [address], 11/24/2023 11:29:52 12/08/19 24 02/16/2021 imagi ng/di agnos tic resul t No observ ation record ed. [email or web address] Not Available 11/09 11:04:56 12/08/19 24 12/22/2020 imagi ng/di agnos tic resul t No observ ation record ed. [email or web address] Not Available 11/09 11:05:05 12/13/19 24 12/12/2023 MRI, cervi emmy spine , w/o contr ast Shield s MRI at [facility], [facility] Access ion Number : [id number] Patiizaiah t Name: Valentín [facility] l Record Number : [id number] Date of : 1970 Date of Exam: 2023 Referr ing Physic markell: Aiden Doston NEOS [address], [address] [place] [address] , [facility] [id number] Exam: MR Cervic al Spine (C-) CPT 72499 Room Descri ption: [place] GE Mob 1.5 HISTOR Y: Neck pain and arm pain. COMPAR MANDA: MRI, 2020. FINDIN GS: ALIGNM ENT, VERTEB MARILUZ, MARROW , AND DISCS: Verteb ral body height , curvat ure, and alignm ent are normal . There is no signif icant disc space narrow ing and anteri or osteop hytes are seen at C5-6 and C6-7. Bone marrow signal is normal . RELOCATION SERVICES SPECIALIST IOR FOSSA AND CORD: The visual ized artist and repertoire manager ior fossa and cervic omedul courtney juncti [...] onical ly Signed By: Jonelle sheehan MD [address] ([facility]) [address] [place], [address], 12/18/2023 11:18:39 Result Notes Documentation Provider Name and Address Organization Details Recorded Time Xr, Cervical Spine, 2 Or 3 View : [email or web address]?E ncrypted=bhXxLxyIA5uGemULi 6g%1LTXapOfubh0tmxu%2Fg9IQ t3hoQcxV2sQzGKeocVv1QqHTCg ZkjMTV4cNlDIvbx10c1400BU3O hH3dYJensYK0qd71%3D Not Available [employer] 11/21/2023 14:54:51 Xr, Cervical Spine, 2 Or 3 View : [email or web address]?E ncrypted=hgOxHarUI3wIezZNj 6g%7YIRcpNwnua8eqxm%2Fg9IQ o0waIvgP7xWeJLkzcSq3IzTHXb EeaWSR9rKlYIlgi64q3516BP5W aU2mYHxqdWT0bd85%3D Not Available [facility] 11/21/2023 14:54:53 Xr, Cervical Spine, 2 Or 3 View : [email or web address]?E ncrypted=cxFzOvkDP4nQcqZAc 6g%2XYRldLlkzs5csjv%2Fg9IQ q6iiZfjH4vBiDEkuvWs7AbGFBj GleFLQ9fDxHMgbh87l2450PT7H nM4vDOwvfRD0nd50%3D Not Available [facility] 11/24/2023 11:29:51 Xr, Cervical Spine, 2 Or 3 View : [email or web address]?E ncrypted=kuHpFdpGC9vZmhPCr 6g%4BGPyeRqwyt0yaib%2Fg9IQ y7biTzrA4lEvBMrshOw6PvEDQl QtwARH4sYyKKxox15q2983DK8P fE6lVWkgmTG8kx74%3D Not Available [facility] 11/24/2023 11:29:53 Mri, Cervical Spine, W/o Contrast : [facility] at [facility], [facility] Accession Number: [id number] Patient Name: Reema New Date of : 1970 Date of Exam: 12-12-2023 Referring Physician: Nishi Dupont, [address] [place] [id number] Exam: MR Cervical Spine (C-) CPT 93940 Room Description: [place] GE Mob 1.5 HISTORY: Neck pain and [...] Electronically Signed By: Jonelle Dupont PA-C [address] [facility] [address] [facility], [place], [address], [facility] 12/18/2023 11:18:39 Problems Name Problem SNOMED Code Status Onset Date Resolution Date Notes Provider Name and Address Organization Details Recorded Time Cervical myelopathy 608975500 Active 2023 Vladimir Payne MD [address], [place], [address], [facility] 4 14:14:53 Spinal stenosis in cervical region 02719875 Active 2023 Vladimir Payne MD [address], [place], [address], [facility] 4 13:33:33 Intervertebral disc disorder of cervical region with myelopathy 93939344 Active 2023 Vladimir Payne MD [address], [place], [address], [facility] 4 13:33:34 Problem Notes None recorded. Medical Equipment None Reported. Allergies Allergen ID Allergen Name Allergen Category Reaction Reaction Severity Criticality Documentation Date Start Date Code Code System Note Provider Name and Address Organization Details Recorded Time 151531 latex environme nt,medica tion Not available Not available Not available 01/08/2024 14569 91 RxNorm ABDIEL GODINEZ [facility] 4 09:06:08 322517 Valium medicatio n Not available Not available Not available 01/08/2024 92635 2 RxNorm ABDIEL GODINEZ [facility] 4 09:06:14 48642 tramadol hydrochlo ride medicatio n Not available Not available Not available 06/11/20232020 78655 RxNorm ABDIEL GODINEZ [facility] 4 09:06:02 Medications Name Sig [...] Address Organization Details Last Updated DateTime 11/21/2023 74774.86 g 27.4 kg/m2 157.48 cm Melinda Carey [facility] 11/21/2023 14:39:34 Date Recorded Body height Body mass index (BMI) Body weight Provider Name and Address Organization Details Last Updated DateTime 12/06/2023 157.48 cm 27.4 kg/m2 27435.86 g NEMO ESCOBAR [facility] 12/06/2023 10:28:59 Date Recorded Body height Body mass index (BMI) Body weight Provider Name and Address Organization Details Last Updated DateTime 01/08/2024 154.94 cm 28.3 kg/m2 44262.86 g ABDIEL COLONYMOUR [facility] 01/08/2024 09:05:58 Date Recorded Body height Body mass index (BMI) Body weight Provider Name and Address Organization Details Last Updated DateTime 02/05/2024 154.94 cm 28.3 kg/m2 16517.86 g Jonathan Walker [facility] 02/05/2024 11:42:26 Social History None recorded. Functional Status None recorded. Mental Status None recorded. Family History Nothing Reported. Medical History No medical history recorded. Gynecological HistoryNo gynecological history recorded. Obstetrics History GPAL:G 0 P 0 0 0 0 Past Encounters Encounter ID Performer Location Encounter Start Date Encounter Closed Date Diagnosis/Indication Diagnosis SNOMED-CT Code Diagnosis ICD10 Code Diagnosis IMO Codes Diagnosis Note [id number] HUSAM Robles [address] [place] [address] 11/21/2023 14:21:05 12/14/2023 09:32:23 Neck pain 86758520 M54.2 Radiculopa thy due to cervical spondylosis 9588903623 M47.22 Myelopathy due to cervical spondylosis 3791009702 M47.12 [id number] Vladimir Payne MD [place] [address] [place] [address] 12/06/2023 09:51:02 12/28/2023 08:15:36 Cervical myelopathy 955183220 G95.9 [id number] Vladimir Payne MD [place] [address] [place] [address] 01/08/2024 08:49:42 01/23/2024 12:15:01 Pre-surgery testing 557717847 Z01.89 Interverte bral disc disorder of cervical region with myelopathy 11918031 M50.00 Spinal [place] nosis in cervical region 58234741 M48.02 [id number] Vladimir Payne MD [place] [address] [place] [address] 02/05/2024 10:53:53 02/25/2024 13:33:20 Intervertebral disc disorder of cervical region with myelopathy 76578177 M50.00 Health Concerns Section Related Observation LastModified by Organization Detai ls LastModified Time None Recorded Concern Status LastModified by Organization Details LastModified Time None Recorded Advance Directives Directive None Recorded Payers Insurance Date Sequence Insurance Name Policy Number Policy Remy Covered Member ID Remy Member ID Guarantor Name 05/12/2024 1 [facility] [id number] Reema New [id number] Reema New 11/20/2023 1 [facility] (MEDICAID HMO) [place] Reema New [id number] Reema Jesus New 11/21/2023 1 [facility] (MEDICAID HMO) BASIL New [id number] Reema New Notes Date Note Type Note Provider Name and Address Organization Details Recorded Time 4 text/html ROS as noted in the HPI I am seeing the patient today under the supervision of Dr. Gar who was available but who did not see the patient.HPI: Patient is a 53-year-old woman with history of about 3 years of neck pain and bilateral upper extremity pain. She has been seen at [facility] for this. She complains of pain in her neck and radiating pain into her bilateral arms especially her shoulders. She reports pain and numbness into her fingers of both hands, predominantly in the median nerve distribution of each hand, right worse than left. 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 She does report difficulty with her gait [...] triceps, wrist flexors and extensors, finger abduction, skip load driver strength, pinch strength. She has a positive Page's. She has normal reflexes. She has positive clonus bilateral ankles. Sensation to light touch is intact throughout axillary, radial, median, ulnar nerve distributions. Normal distal pulses and brisk capillary refill. Peripheral vascular, lymphatic examination, skin, neurological, coordination, sensation are within normal limits unless otherwise noted above.X-rays ordered, obtained and reviewed at [facility] 2 views of the cervical spine demonstrating multilevel degenerative changes noted most significant at C5-6 and C6-7 with disc space narrowing and bridging anterior osteophytesMRI of the C-spine from 2021 at [facility] independently reviewed by me today demonstrates [...] due to the presence of a syrinx.A composition tile layer was utilized via [employer] video service which required increased time for interpretation and coordination of patient care today.[employer] speech recognition wastewater treatment plant instructor software was used to create portions of this document. An attempt at proofreading has been made to minimize errors. Please call for corrections. Nishi Dupont PA-C [address] [place] [address] [address], [place], [address], [facility] 11/24/2023 11:33:24 4 text/html ROS as noted in the HPI Serbian only speaking patient entire encounter was completed with the use of a video boxcar weigher took over 25 minutes.HPI: 53-year-old female Serbian only speaking patient presents complaining of left [...] After cervical spine MRI. Vladimir Payne MD [address] [place] [address] [address], [place], [address], [facility] 12/06/2023 14:15:07 4 text/html ROS as noted in the HPI Serbian only speaking patient entire encounter was completed with the use of a video boxcar weigher took over 30 minutes.HPI: 53-year-old female Serbian only speaking patient presents complaining of left [...] all done with the use of an boxcar weigher and took a significant amount of time. [...] discussion.FOLLOW UP: 2 months. Vladimir Payne MD [facility] [address], [place], [address], [facility] 01/15/2024 13:33:56 4 text/html ROS as noted in the HPI Serbian only speaking patient entire encounter was completed with the use of a video boxcar weigher took over 30 minutes.HPI: 53-year-old female Serbian only speaking patient here in follow-up complaining [...] all done with the use of an boxcar weigher and took a significant amount of time. [...] C3-4 ACDF versus corpectomy. Vladimir Payne MD [address] [place] [address] [address], [place], [address], [facility] [place] [facility] 02/12/2024 09:00:47 OBGyn Episode No OBEpisode recorded.
--- OUTSIDE RECORDS SUMMARY | 2025-02-05 10:43 | XMS_ITS | Clinical Summary ---
Author Organization [facility] Address [address] [place] [address] Care Team Providers Care Medical Library Assistant Name Role Phone Jeff RivasteiVandana Primary Care Provider Allergies Active Allergy Reactions Criticality Noted Date Comments Diazepam Hives 01/02/2024 Fluoxetine Hives 01/02/2024 Latex Unknown 01/08/2025 Oxycodone Rash 01/08/2025 Sulindac Abdominal Pain 01/08/2025 Tramadol Hives 01/02/2024 Medications No known medications Encounters Date Type Department Care Team Description 01/15/2025 Telephone [facility]surgery [address] [place] [id number] Kvng Trevino PA 01/08/2025 10:00 AM EDT Office Visit [facility] [address] [place] [address] Kvng Trevino PA Cervical radiculopathy (Primary Dx) from Last 3 Months Social History Tobacco Use Types Packs/Day Years Used Date Smoking Tobacco: Never Smokeless Tobacco: Never Tobacco Cessation:Counseling Given: Not Answered Comments Unknown Sex and Gender Information Value Date Recorded Sex Assigned at Female 12/29/2024 11:25 AM EDT Legal Sex Female 10:54 AM EDT Gender Identity Not on file Sexual Orientation Not on file Plan of Treatment Upcoming Encounters Date Type Department Care Team (Late st Contact Info) Description 02/23/2025 10:15 AM EST Follow-Up [facility] Neurosurgery [address] [place] [address] Harper Bae MD [address] [place] [address] Health Maintenance Due Date Last Done Comments Cervical Cancer Screening 1970 Cologuard 1970 Colon Cancer Screening 1970 Colonoscopy 1970 FOBT / Fit Test 1970 HIV Screening 1970 HPV and Pap Smear 1970 Hepatitis C Screening 1970 Pap Smear 1969 Sigmoidoscopy 1969 Hepatitis B Vaccines (1 of 3 - 19+ 3-dose series) 1988 Mammogram 2009 Pneumococcal Vaccine: 50+ Ye ars (1 of 1 - PCV) 2019 Zoster Vaccines (1 of 2) 2019 Alcohol/Substance Use Screening 04/09/2024 Depression Screening and Follow-Up 04/09/2024 Social Drivers of Health Abbie ual Screening 04/09/2024 COVID-19 Vaccine ( - 2024- season) 2024 07/26/2021, 01/27/2021, 01/05/2021 Influenza Vaccine (#1) 2024 DTaP,Tdap,and Td Vaccines (2 - Td or Tdap) 05/29/2034 05/29/2024 RSV Vaccine (60+ years old a nd patients) (1 - 1-dose 75+ series) 2044 Insurance [facility] Care Teams Medical Library Assistant Relationship Specialty Start Date End Date Vandana Bragg [address] [place] [address] PCP - General Internal Medicine 12/29/24
--- OUTSIDE RECORDS SUMMARY | 2025-02-05 10:43 | XMS_ITS | Clinical Summary ---
Author Organization [facility] Address [address] [address] Phone Care Team Providers Care Citizenship Instructor Name Role Phone Vandana Bragg MD Primary [...] have apparently an ultrasound November 2021 at [facility]. I do not have the size [...] 2019 INFLUENZA VACCINE (#1) 2024 COVID-19 VACCINE ( - 2024-2 6 season) 2024 RSV VACCINE (1 - 1-dose 75+ series) 2044 SMOKING STATUS SCREENING (On ce After 26 [...] topic Medical Devices Not on file Insurance [place] [address] [place] [address] Care Teams Citizenship Instructor Relationship Specialty Start Date End Date Vandana Bragg MD [address] [place] [address] PCP - General Internal Medicine 11/14/22 Additional Source Comments The information contained in this document represents components of the legal health record. It is not the complete legal health record.[facility]
== END 2025-02-05 09:40 | disposition home or self-care (01) ==
LOC: HO.HGS 09:21
PROVIDERS: PCP Internal Medicine; Visit Provider Surgery
DX: K82.4 Cholesterolosis of gallbladder (principal)
CPT/HCPCS: 99213